=== PATIENT | female | born 1970 | race Two or more races ===

== ENCOUNTER 2017-12-21 09:36 | Emergency (ER) | payer MEDICAID, SELFPAY ==
[~2017-12-21] VITALS: Ht 152.4 cm; Wt 64.4 kg
[2017-12-21] MEDS ORDERED: ONDANSETRON 2MG/ML, 2ML IVPush ONE (10:00)
[2017-12-21] MEDS ORDERED: FAMOTIDINE 20 MG/2 ML IVP ONE (10:00)
[2017-12-21] MEDS ORDERED: SODIUM CHLORIDE FLUSH 10ML SYR IVF ONE (10:00)
[2017-12-21] MEDS ORDERED: SODIUM CHLORIDE 0.9% 1,000ML IVBOLUS ONE (10:00)
[2017-12-21] MEDS ORDERED: INSU100I13 SQ-INSULIN (10:06)
[2017-12-21] MEDS ORDERED: GLIP2.5T3 PO (10:06)
[2017-12-21] MEDS ORDERED: FLUT9.9S NAS (10:07)
[2017-12-21] MEDS ORDERED: ONDANSETRON 2MG/ML, 2ML ONE (10:23)
[2017-12-21] MEDS ORDERED: FAMOTIDINE 20 MG/2 ML ONE (10:23)
[2017-12-21 10:35] LABS: PH, VENOUS 7.399 pH (7.320-7.420)
[2017-12-21 10:37] LABS: O2 FLOW ROOM AIR L/min
[2017-12-21 10:39] LABS: BASOPHILS # (AUTO) 0.02 x10^3/uL (0-0.1); BASOPHILS % (AUTO) 0 % (0-1); EOSINOPHILS # (AUTO) 0.17 x10^3/uL (0-0.4); EOSINOPHILS % (AUTO) 3 % (1-7); LYMPHOCYTES # (AUTO) 1.35 x10^3/uL (1-3.4); LYMPHOCYTES % (AUTO) 20 % (22-44); MD NO; MEAN CORPUSCULAR HEMOGLOBIN 24.7 pg (27.0-34.8); MEAN CORPUSCULAR HGB CONC 33.4 g/dL (32.4-35.8); MEAN CORPUSCULAR VOLUME 73.9 fL (80-100); MEAN PLATELET VOLUME 8.6 fL (7.4-10.4); MONOCYTES # (AUTO) 0.35 x10^3/uL (0.2-0.8); MONOCYTES % (AUTO) 5 % (2-9); NEUTROPHILS # (AUTO) 4.91 x10^3/uL (1.8-6.8); NEUTROPHILS % (AUTO) 72 % (42-75); PLATELET COUNT 278 x10^3/uL (130-400); RED BLOOD COUNT 4.28 x10^6/uL (3.82-5.3); RED CELL DISTRIBUTION WIDTH 15.7 % (9.6-15.2)
[2017-12-21 10:48] LABS: ALANINE AMINOTRANSFERASE 23 U/L (12-78); ALBUMIN 3.3 g/dL (3.4-5.0); ANION GAP 9 mmol/L (5-15); CALCIUM 8.5 mg/dL (8.5-10.1); CHLORIDE 103 mmol/L (98-107); CREATININE 0.63 mg/dL (0.55-1.02)
[2017-12-21 10:51] LABS: MICROSCOPIC AUTO
[2017-12-21 10:52] LABS: CULTURE INDICATED? YES
[2017-12-21 10:53] LABS: ALKALINE PHOSPHATASE 84 U/L (45-117); BILIRUBIN,TOTAL 0.3 mg/dL (0.2-1.0); TOTAL PROTEIN 7.4 g/dL (6.4-8.2)
[2017-12-21 11:12] LABS: ACETONE, SERUM Trace (10mg/dL) mg/dL (Negative)
[2017-12-21 11:26] VITALS: BP 156/78
== END 2017-12-21 12:59 | disposition home or self-care (01) ==
LOC: ED 10:04
DX: E11.65 Type 2 diabetes mellitus with hyperglycemia (principal); K29.00 Acute gastritis without bleeding
CPT/HCPCS: 36415; 80053; 81001; 82010; 82803; 83690; 84703; 85025; 87086; 96361; 96374; 96375; 99284; J2405; J7030; S0028

== ENCOUNTER 2020-08-21 16:09 | Inpatient (IN) | payer OTHER ==
[~2020-08-21] VITALS: Ht 170.2 cm; Wt 62.1 kg
[~2020-08-21 16:09] MED LIST: FLUT9.9S NAS; GLIP2.5T3 PO; INSU100I13 SQ-INSULIN
--- NOTE | 2020-08-21 16:20 | NUR ---
PT ARRIVED VIA CARE FLIGHT FROM [facility] FOR RETROPERITONEAL ABSCESS. PT MEDICATED IN PREVIOUS HOSPITAL AND ENROUTE, INCLUDING 0.5MG DILAUDID & 10MG REGLAN & 3L OF NS. PT [facility] SPEAKING, AXOX4 & COOPERATIVE. ARRIVED FEBRILE WITH NOTED PSORIASIS TO EXTREMITIES AND CHEST & REQUIRING SUPPL O2 VIA DE. PT TRANSFERRED TO [facility], MONITORS IN PLACE. AT . COMFORT AND COOLING MEASURES PROVIDED
[2020-08-21] MEDS ORDERED: MORPHINE SULFATE 4 MG/ML, 1ML IVPush PRN (16:30)
[2020-08-21] MEDS ORDERED: SODIUM CHLORIDE 0.9% 1,000 ML IV ONE (16:30)
[2020-08-21] MEDS ORDERED: SODIUM CHLORIDE FLUSH 10ML SYR IVF ONE (16:30)
[2020-08-21 16:54] LABS: MEAN CORPUSCULAR HEMOGLOBIN 28.1 pg (27.0-34.8); MEAN CORPUSCULAR HGB CONC 32.6 g/dL (32.4-35.8); MEAN PLATELET VOLUME 7.1 fL (7.4-10.4); PLATELET COUNT 415 x10^3/uL (130-400); RED BLOOD COUNT 3.53 x10^6/uL (3.82-5.3); RED CELL DISTRIBUTION WIDTH 14.4 % (9.6-15.2)
[2020-08-21] MEDS ORDERED: LIDOCAINE 1%, 10ML ONE (16:57)
[2020-08-21 17:07] LABS: ALANINE AMINOTRANSFERASE 8 U/L (12-78); ALBUMIN 1.1 g/dL (3.4-5.0); ANION GAP 8 mmol/L (5-15); CALCIUM 7.1 mg/dL (8.5-10.1); CHLORIDE 100 mmol/L (98-107); CREATININE 0.63 mg/dL (0.55-1.02)
[2020-08-21 17:09] LABS: ALKALINE PHOSPHATASE 263 U/L (45-117); BILIRUBIN,TOTAL 0.1 mg/dL (0.2-1.0); TOTAL PROTEIN 5.9 g/dL (6.4-8.2)
--- NOTE | 2020-08-21 17:10 | NUR ---
PT TO IR
[2020-08-21] MEDS ORDERED: FENTANYL PF 100 MCG/2ML ONE ×2 (17:24→17:25)
[2020-08-21] MEDS ORDERED: MIDAZOLAM 1 MG/ML, 5ML ONE (17:24)
[2020-08-21] MEDS ORDERED: NALOXONE 1 MG/ML, 2ML ONE (17:25)
[2020-08-21] MEDS ORDERED: FLUMAZENIL 0.1 MG/1 ML, 5ML ONE (17:25)
[2020-08-21 17:39] LABS: MD YES
[2020-08-21 17:41] LABS: BAND#(MANUAL) 1.21 x10^3/uL; BANDS%(MANUAL) 7 % (0-7); EOS#(MANUAL) 0.17 x10^3/uL (0.0-0.4); EOS% (MANUAL) 1 % (1-7); LYMPH#(MANUAL) 1.04 x10^3/uL (1-3.4); LYMPHS% (MANUAL) 6 % (22-44); METAMYELOCYTES# (MANUAL) 0.17 x10^3/uL (0-0); METAMYELOCYTES% (MANUAL) 1 % (0-1); MONOS#(MANUAL) 0.35 x10^3/uL (0.3-2.7); MONOS% (MANUAL) 2 % (2-9); SEG#(MANUAL) 14.36 x10^3/uL (1.8-6.8); SEGS% (MANUAL) 83 % (42-75)
[2020-08-21 17:46] LABS: <PLATELET ESTIMATE> INCREASED; <PLT MORPHOLOGY> NORMAL PLT MORPH; <RBC MORPHOLOGY> NORMAL
--- NOTE | 2020-08-21 17:59 | NUR ---
PT BACK FROM IR. PT HAS LEFT NEPHROSTOMY ACCORDIAN DRAIN WITH MODERATES AMT BLOODY, PURULENT DRAINAGE NOTED. DRESSING TO SITE CDI. PT DROWSY BUT FOLLOWS COMMANDS. NADN/VSS. SON AT BS. CALL LIGHT WITHIN REACH.
[2020-08-21] MEDS ORDERED: VANCOMYCIN PER PHARMACY MC PRN (18:00)
[2020-08-21] MEDS ORDERED: POLYETHYLENE GLYCOL 17 GM PACKET PO PRN (18:00)
[2020-08-21] MEDS ORDERED: HYDROmorphone 2 MG/ML, 1ML IVPush PRN (18:00)
[2020-08-21] MEDS ORDERED: ACETAMINOPHEN 500 MG TABLET ONE (18:11)
--- NOTE | 2020-08-21 18:29 | NUR ---
Pt to be admitted to MEDICAL, room 359. Report called to DIRECT CHILL CASTING OPERATOR.
[2020-08-21] MEDS ORDERED: ACETAMINOPHEN 500 MG TABLET PO ONE (18:30)
[2020-08-21 19:20] VITALS: BP 86/53
[2020-08-21] MEDS ORDERED: ENOXAPARIN 40 MG/0.4 ML SQ SCH (19:30)
[2020-08-21] MEDS ORDERED: PHARMACOKINETIC MONITORING MC PRN (19:30)
[2020-08-21] MEDS ORDERED: VANCOMYCIN 1,500 MG in SODIUM CHLORIDE 0.9% 250 ML IV ONE (20:00)
[2020-08-21 20:19] VITALS: BP 97/60
[2020-08-21] MEDS: PIPERACILLIN/TAZO/PMX 4.5GM 100 ML IV SCH (20:21)
[2020-08-21] MEDS: POTASSIUM CHLORIDE 20 MEQ in LACTATED RINGERS 1,000 ML IV SCH (21:43)
[2020-08-22] MEDS ORDERED: DEXTROSE 50%, 50ML SYRINGE IVPush PRN (00:30)
[2020-08-22] MEDS ORDERED: DEXTROSE 4 GM TAB.CHEW PO PRN (00:30)
[2020-08-22] MEDS ORDERED: GLUCAGON 1 MG IM PRN (00:30)
[2020-08-22] MEDS: INSULIN LISPRO 100 UNITS/ML, PEN SQ-INSULIN SCH ×5 (00:40→21:00)
[2020-08-22 01:10] VITALS: BP 104/69
[2020-08-22] MEDS: PIPERACILLIN/TAZO/PMX 4.5GM 100 ML IV SCH ×2 (02:16→07:57)
[2020-08-22 05:23] LABS: BASOPHILS % (AUTO) 0 % (0-1); EOSINOPHILS % (AUTO) 1 % (1-7); LYMPHOCYTES % (AUTO) 8 % (22-44); MEAN CORPUSCULAR HEMOGLOBIN 28.4 pg (27.0-34.8); MEAN CORPUSCULAR HGB CONC 32.3 g/dL (32.4-35.8); MEAN PLATELET VOLUME 7.5 fL (7.4-10.4); MONOCYTES % (AUTO) 6 % (2-9); NEUTROPHILS % (AUTO) 85 % (42-75); PLATELET COUNT 430 x10^3/uL (130-400); RED BLOOD COUNT 3.49 x10^6/uL (3.82-5.3); RED CELL DISTRIBUTION WIDTH 14.7 % (9.6-15.2)
[2020-08-22 05:40] LABS: MD NO
[2020-08-22 05:51] LABS: ANION GAP 7 mmol/L (5-15); CALCIUM 7.4 mg/dL (8.5-10.1); CHLORIDE 104 mmol/L (98-107)
[2020-08-22 05:53] LABS: CREATININE 0.86 mg/dL (0.55-1.02)
[2020-08-22 07:02] VITALS: BP 119/81
[2020-08-22] MEDS: POTASSIUM CHLORIDE 20 MEQ in LACTATED RINGERS 1,000 ML IV SCH (07:06)
[2020-08-22] MEDS: SENNA/DOCUSATE TABLET PO SCH (07:57)
[2020-08-22] MEDS: SODIUM CHLORIDE FLUSH 10ML SYR IVF SCH ×2 (07:57→21:08)
[2020-08-22] MEDS: ONDANSETRON ODT 4 MG PO PRN ×2 (07:58→15:41)
[2020-08-22] MEDS: KETOROLAC 30 MG/1 ML IV PRN ×2 (07:58→15:41)
[2020-08-22] MEDS ORDERED: POTASSIUM CHLORIDE 40 MEQ in LACTATED RINGERS 1,000 ML IV SCH (08:30)
[2020-08-22] MEDS: VANCOMYCIN 1,200 MG in SODIUM CHLORIDE 0.9% 250 ML IV SCH ×2 (08:44→20:22)
[2020-08-22] MEDS ORDERED: LOPERAMIDE 2 MG CAPSULE PO PRN (11:30)
[2020-08-22 12:11] VITALS: BP 81/53
[2020-08-22] MEDS ORDERED: LACTATED RINGERS 1,000 ML IVBOLUS ONE (13:00)
[2020-08-22 13:43] LABS: BASOPHILS % (AUTO) 0 % (0-1); EOSINOPHILS % (AUTO) 1 % (1-7); LYMPHOCYTES % (AUTO) 11 % (22-44); MEAN CORPUSCULAR HEMOGLOBIN 28.6 pg (27.0-34.8); MEAN CORPUSCULAR HGB CONC 32.7 g/dL (32.4-35.8); MEAN PLATELET VOLUME 7.7 fL (7.4-10.4); MONOCYTES % (AUTO) 4 % (2-9); NEUTROPHILS % (AUTO) 84 % (42-75); PLATELET COUNT 390 x10^3/uL (130-400); RED CELL DISTRIBUTION WIDTH 14.2 % (9.6-15.2)
[2020-08-22 13:47] LABS: ANION GAP 7 mmol/L (5-15); CHLORIDE 104 mmol/L (98-107); CREATININE 1.12 mg/dL (0.55-1.02)
[2020-08-22] MEDS: MEROPENEM 500 MG in SODIUM CHLORIDE 0.9% 100 ML IV SCH ×2 (13:50→21:11)
[2020-08-22] MEDS: METRONIDAZOLE PMX 500MG/100ML 100 ML IV SCH ×2 (14:08→23:08)
[2020-08-22 14:27] LABS: MD SCAN
[2020-08-22 15:40] VITALS: BP 88/63
[2020-08-22] MEDS: ALBUMIN HUMAN 25% 100 ML IV SCH ×5 (15:41→22:11)
[2020-08-22] MEDS ORDERED: NOREPINEPHRINE 8 MG in SODIUM CHLORIDE 0.9% 242 ML IV PRN (16:30)
[2020-08-22] MEDS: HEPARIN 5,000 UNITS/ML, 1ML SQ SCH (17:12)
[2020-08-22] MEDS: ACETAMINOPHEN 325 MG TABLET PO PRN (20:22)
[2020-08-22] MEDS: INSULIN GLARGINE 100 UNITS/ML, PEN SQ-INSULIN SCH (21:05)
[2020-08-23] MEDS: HEPARIN 5,000 UNITS/ML, 1ML SQ SCH ×3 (01:03→16:21)
[2020-08-23] MEDS: KETOROLAC 30 MG/1 ML IV PRN (01:27)
[2020-08-23] MEDS: ONDANSETRON ODT 4 MG PO PRN ×2 (01:44→09:32)
[2020-08-23 04:51] LABS: BASOPHILS % (AUTO) 1 % (0-1); EOSINOPHILS % (AUTO) 2 % (1-7); LYMPHOCYTES % (AUTO) 11 % (22-44); MEAN CORPUSCULAR HEMOGLOBIN 28.2 pg (27.0-34.8); MEAN CORPUSCULAR HGB CONC 32.8 g/dL (32.4-35.8); MEAN PLATELET VOLUME 7.1 fL (7.4-10.4); MONOCYTES % (AUTO) 6 % (2-9); NEUTROPHILS % (AUTO) 80 % (42-75); PLATELET COUNT 387 x10^3/uL (130-400); RED BLOOD COUNT 3.38 x10^6/uL (3.82-5.3); RED CELL DISTRIBUTION WIDTH 14.3 % (9.6-15.2)
[2020-08-23 04:52] LABS: MD NO
[2020-08-23 05:03] LABS: ALBUMIN 1.9 g/dL (3.4-5.0); ANION GAP 5 mmol/L (5-15); CALCIUM 7.6 mg/dL (8.5-10.1); CHLORIDE 105 mmol/L (98-107)
[2020-08-23] MEDS: METRONIDAZOLE PMX 500MG/100ML 100 ML IV SCH (05:04)
[2020-08-23 05:07] LABS: ALANINE AMINOTRANSFERASE 19 U/L (12-78); ALKALINE PHOSPHATASE 695 U/L (45-117); BILIRUBIN,TOTAL 0.2 mg/dL (0.2-1.0); CREATININE 1.43 mg/dL (0.55-1.02); TOTAL PROTEIN 6.1 g/dL (6.4-8.2)
[2020-08-23] MEDS: MEROPENEM 500 MG in SODIUM CHLORIDE 0.9% 100 ML IV SCH (06:33)
[2020-08-23] MEDS: INSULIN LISPRO 100 UNITS/ML, PEN SQ-INSULIN SCH ×4 (07:00→21:16)
[2020-08-23] MEDS ORDERED: POTASSIUM CHLORIDE 20 MEQ TAB.ER.PRT PO ONE (07:00)
[2020-08-23] MEDS: SENNA/DOCUSATE TABLET PO SCH (07:49)
[2020-08-23] MEDS: SODIUM CHLORIDE FLUSH 10ML SYR IVF SCH ×2 (07:49→21:18)
[2020-08-23] MEDS: SODIUM CHLORIDE 0.9% 1,000 ML IV SCH ×2 (09:31→22:37)
[2020-08-23 12:51] VITALS: BP 125/92
[2020-08-23] MEDS: CEFTRIAXONE PMX 2GM/50ML 50 ML IVPB SCH (13:10)
[2020-08-23 18:55] VITALS: BP 139/90
[2020-08-23] MEDS: INSULIN GLARGINE 100 UNITS/ML, PEN SQ-INSULIN SCH (21:16)
[2020-08-24 00:57] VITALS: BP 114/80
[2020-08-24] MEDS: HEPARIN 5,000 UNITS/ML, 1ML SQ SCH ×3 (01:21→16:43)
[2020-08-24 05:10] LABS: BASOPHILS % (AUTO) 0 % (0-1); EOSINOPHILS % (AUTO) 2 % (1-7); LYMPHOCYTES % (AUTO) 7 % (22-44); MEAN CORPUSCULAR HEMOGLOBIN 28.2 pg (27.0-34.8); MEAN CORPUSCULAR HGB CONC 32.2 g/dL (32.4-35.8); MEAN PLATELET VOLUME 7.6 fL (7.4-10.4); MONOCYTES % (AUTO) 5 % (2-9); NEUTROPHILS % (AUTO) 86 % (42-75); PLATELET COUNT 428 x10^3/uL (130-400); RED BLOOD COUNT 3.61 x10^6/uL (3.82-5.3); RED CELL DISTRIBUTION WIDTH 14.6 % (9.6-15.2)
[2020-08-24 05:13] LABS: CHLORIDE 108 mmol/L (98-107)
[2020-08-24 05:18] LABS: ANION GAP 9 mmol/L (5-15); CALCIUM 7.3 mg/dL (8.5-10.1); CREATININE 1.31 mg/dL (0.55-1.02)
[2020-08-24 05:24] LABS: MD NO
[2020-08-24] MEDS: INSULIN LISPRO 100 UNITS/ML, PEN SQ-INSULIN SCH ×4 (07:27→20:30)
[2020-08-24 07:36] VITALS: BP 126/84
[2020-08-24] MEDS: ONDANSETRON ODT 4 MG PO PRN (08:14)
[2020-08-24] MEDS: SODIUM CHLORIDE FLUSH 10ML SYR IVF SCH ×2 (08:15→20:31)
[2020-08-24] MEDS: SENNA/DOCUSATE TABLET PO SCH (08:15)
[2020-08-24] MEDS: SODIUM CHLORIDE 0.9% 1,000 ML IV SCH ×2 (11:02→21:37)
[2020-08-24 12:38] VITALS: BP 102/63
[2020-08-24] MEDS: CEFTRIAXONE PMX 2GM/50ML 50 ML IVPB SCH (13:01)
[2020-08-24] MEDS: LACTOBACILLUS CHEW TABLET PO SCH ×2 (16:42→20:29)
[2020-08-24 19:53] VITALS: BP 139/75
[2020-08-24] MEDS: INSULIN GLARGINE 100 UNITS/ML, PEN SQ-INSULIN SCH (20:30)
[2020-08-25 00:48] VITALS: BP 107/67
[2020-08-25] MEDS: HEPARIN 5,000 UNITS/ML, 1ML SQ SCH ×3 (01:02→16:39)
[2020-08-25] MEDS: ONDANSETRON ODT 4 MG PO PRN (01:02)
[2020-08-25] MEDS: LACTOBACILLUS CHEW TABLET PO SCH ×4 (05:27→20:09)
[2020-08-25 06:04] LABS: BASOPHILS % (AUTO) 0 % (0-1); EOSINOPHILS % (AUTO) 2 % (1-7); LYMPHOCYTES % (AUTO) 13 % (22-44); MEAN CORPUSCULAR HEMOGLOBIN 28.2 pg (27.0-34.8); MEAN CORPUSCULAR HGB CONC 32.4 g/dL (32.4-35.8); MEAN PLATELET VOLUME 7.4 fL (7.4-10.4); MONOCYTES % (AUTO) 7 % (2-9); NEUTROPHILS % (AUTO) 78 % (42-75); PLATELET COUNT 433 x10^3/uL (130-400); RED BLOOD COUNT 3.31 x10^6/uL (3.82-5.3); RED CELL DISTRIBUTION WIDTH 14.6 % (9.6-15.2)
[2020-08-25 06:10] LABS: CHLORIDE 109 mmol/L (98-107)
[2020-08-25 06:16] LABS: MD NO
[2020-08-25 06:18] LABS: ALANINE AMINOTRANSFERASE 9 U/L (12-78); ALBUMIN 1.4 g/dL (3.4-5.0); ALKALINE PHOSPHATASE 463 U/L (45-117); ANION GAP 6 mmol/L (5-15); CALCIUM 6.9 mg/dL (8.5-10.1); CREATININE 1.33 mg/dL (0.55-1.02); TOTAL PROTEIN 5.6 g/dL (6.4-8.2)
[2020-08-25 06:36] LABS: BILIRUBIN,TOTAL < 0.1 mg/dL (0.2-1.0)
[2020-08-25 07:10] VITALS: BP 113/74
[2020-08-25] MEDS: SODIUM CHLORIDE 0.9% 1,000 ML IV SCH ×2 (07:25→16:42)
[2020-08-25] MEDS: INSULIN LISPRO 100 UNITS/ML, PEN SQ-INSULIN SCH ×4 (07:35→20:10)
[2020-08-25] MEDS: SENNA/DOCUSATE TABLET PO SCH (08:54)
[2020-08-25] MEDS: SODIUM CHLORIDE FLUSH 10ML SYR IVF SCH ×2 (08:55→20:09)
[2020-08-25] MEDS: CEFTRIAXONE PMX 2GM/50ML 50 ML IVPB SCH (12:45)
[2020-08-25 14:12] VITALS: BP 118/62
[2020-08-25 19:12] VITALS: BP 100/66
[2020-08-25] MEDS ORDERED: INSULIN GLARGINE 100 UNITS/ML, PEN SQ-INSULIN SCH (21:00)
[2020-08-26 00:22] VITALS: BP 109/74
[2020-08-26] MEDS: HEPARIN 5,000 UNITS/ML, 1ML SQ SCH ×3 (01:20→16:40)
[2020-08-26] MEDS: SODIUM CHLORIDE 0.9% 1,000 ML IV SCH (02:50)
[2020-08-26 04:41] VITALS: BP 112/75
[2020-08-26] MEDS: LACTOBACILLUS CHEW TABLET PO SCH ×2 (05:35→11:31)
[2020-08-26] MEDS: INSULIN LISPRO 100 UNITS/ML, PEN SQ-INSULIN SCH ×4 (07:00→19:44)
[2020-08-26 08:12] VITALS: BP 147/98
[2020-08-26] MEDS: SENNA/DOCUSATE TABLET PO SCH (09:00)
[2020-08-26] MEDS ORDERED: INSULIN GLARGINE 100 UNITS/ML, PEN SQ-INSULIN SCH (09:00)
[2020-08-26] MEDS: SODIUM CHLORIDE FLUSH 10ML SYR IVF SCH ×2 (09:27→19:44)
[2020-08-26] MEDS: CEFTRIAXONE PMX 2GM/50ML 50 ML IVPB SCH (13:03)
[2020-08-26 13:36] VITALS: BP 139/84
[2020-08-26] MEDS: DIPHENOXYLATE/ATROPINE TABLET PO PRN ×2 (13:39→19:43)
[2020-08-26] MEDS ORDERED: OMNIPAQUE 350 MG/ML, 100ML BOTTLE ONE (15:09)
[2020-08-26 19:13] VITALS: BP 116/75
[2020-08-26] MEDS: INSULIN GLARGINE 100 UNITS/ML, PEN SQ-INSULIN SCH (19:44)
[2020-08-27 00:48] VITALS: BP 103/71
[2020-08-27] MEDS: HEPARIN 5,000 UNITS/ML, 1ML SQ SCH ×3 (00:56→17:19)
[2020-08-27 05:22] LABS: BASOPHILS % (AUTO) 0 % (0-1); EOSINOPHILS % (AUTO) 3 % (1-7); LYMPHOCYTES % (AUTO) 11 % (22-44); MEAN CORPUSCULAR HEMOGLOBIN 28.2 pg (27.0-34.8); MEAN CORPUSCULAR HGB CONC 32.2 g/dL (32.4-35.8); MEAN PLATELET VOLUME 7.2 fL (7.4-10.4); MONOCYTES % (AUTO) 7 % (2-9); NEUTROPHILS % (AUTO) 78 % (42-75); PLATELET COUNT 463 x10^3/uL (130-400); RED BLOOD COUNT 3.46 x10^6/uL (3.82-5.3); RED CELL DISTRIBUTION WIDTH 14.8 % (9.6-15.2)
[2020-08-27 05:29] LABS: MD NO
[2020-08-27 05:33] LABS: CHLORIDE 112 mmol/L (98-107)
[2020-08-27 05:42] LABS: ALBUMIN 1.2 g/dL (3.4-5.0); ALKALINE PHOSPHATASE 308 U/L (45-117); ANION GAP 5 mmol/L (5-15); BILIRUBIN,TOTAL 0.1 mg/dL (0.2-1.0); CALCIUM 7.2 mg/dL (8.5-10.1); CREATININE 1.13 mg/dL (0.55-1.02); TOTAL PROTEIN 5.3 g/dL (6.4-8.2)
[2020-08-27 05:53] LABS: ALANINE AMINOTRANSFERASE 8 U/L (12-78)
[2020-08-27 06:47] VITALS: BP 105/65
[2020-08-27] MEDS: INSULIN LISPRO 100 UNITS/ML, PEN SQ-INSULIN SCH ×4 (07:00→19:40)
[2020-08-27] MEDS: SODIUM CHLORIDE FLUSH 10ML SYR IVF SCH ×2 (08:27→19:41)
[2020-08-27] MEDS ORDERED: METRONIDAZOLE PMX 500MG/100ML 100 ML IV SCH (09:00)
[2020-08-27 12:16] VITALS: BP 126/81
[2020-08-27] MEDS: AMPICILLIN/SULBACTAM 3 GM in SODIUM CHLORIDE 0.9% 100 ML IV SCH ×2 (13:10→20:57)
[2020-08-27] MEDS: DIPHENOXYLATE/ATROPINE TABLET PO PRN (13:31)
[2020-08-27] MEDS ORDERED: GASTROGRAFIN 120 ML SOLN PO ONE (16:59)
[2020-08-27 19:26] VITALS: BP 121/81
[2020-08-27] MEDS: INSULIN GLARGINE 100 UNITS/ML, PEN SQ-INSULIN SCH (19:39)
[2020-08-28 00:45] VITALS: BP 106/71
[2020-08-28] MEDS: HEPARIN 5,000 UNITS/ML, 1ML SQ SCH ×3 (01:03→16:17)
[2020-08-28] MEDS: AMPICILLIN/SULBACTAM 3 GM in SODIUM CHLORIDE 0.9% 100 ML IV SCH ×3 (04:22→20:22)
[2020-08-28] MEDS ORDERED: DEXTROSE 50%, 50ML SYRINGE IVPush ONE (06:30)
[2020-08-28] MEDS: INSULIN LISPRO 100 UNITS/ML, PEN SQ-INSULIN SCH ×4 (06:32→20:23)
[2020-08-28 09:11] VITALS: BP 133/76
[2020-08-28] MEDS: DIPHENOXYLATE/ATROPINE TABLET PO PRN (09:17)
[2020-08-28] MEDS: SODIUM CHLORIDE FLUSH 10ML SYR IVF SCH ×2 (09:17→20:23)
[2020-08-28] MEDS ORDERED: FENTANYL PF 100 MCG/2ML ONE (10:52)
[2020-08-28] MEDS ORDERED: LIDOCAINE 1%, 10ML ONE (10:52)
[2020-08-28] MEDS ORDERED: MIDAZOLAM 1 MG/ML, 5ML ONE (10:52)
[2020-08-28] MEDS ORDERED: NALOXONE 1 MG/ML, 2ML ONE (10:53)
[2020-08-28] MEDS ORDERED: FLUMAZENIL 0.1 MG/1 ML, 5ML ONE (10:53)
[2020-08-28 13:06] VITALS: BP 144/87
[2020-08-28 18:13] VITALS: BP 100/68
[2020-08-28] MEDS: INSULIN GLARGINE 100 UNITS/ML, PEN SQ-INSULIN SCH (20:23)
[2020-08-29 01:01] VITALS: BP 118/80
[2020-08-29] MEDS: HEPARIN 5,000 UNITS/ML, 1ML SQ SCH ×3 (01:10→16:17)
[2020-08-29] MEDS: ONDANSETRON ODT 4 MG PO PRN (03:20)
[2020-08-29] MEDS: AMPICILLIN/SULBACTAM 3 GM in SODIUM CHLORIDE 0.9% 100 ML IV SCH ×3 (04:03→20:51)
[2020-08-29 04:04] LABS: BASOPHILS % (AUTO) 1 % (0-1); EOSINOPHILS % (AUTO) 2 % (1-7); LYMPHOCYTES % (AUTO) 12 % (22-44); MEAN CORPUSCULAR HEMOGLOBIN 28.2 pg (27.0-34.8); MEAN CORPUSCULAR HGB CONC 32.7 g/dL (32.4-35.8); MEAN PLATELET VOLUME 6.9 fL (7.4-10.4); MONOCYTES % (AUTO) 8 % (2-9); NEUTROPHILS % (AUTO) 77 % (42-75); PLATELET COUNT 588 x10^3/uL (130-400); RED BLOOD COUNT 3.75 x10^6/uL (3.82-5.3); RED CELL DISTRIBUTION WIDTH 14.7 % (9.6-15.2)
[2020-08-29 04:08] LABS: ALANINE AMINOTRANSFERASE 7 U/L (12-78); ALBUMIN 1.4 g/dL (3.4-5.0); ANION GAP 3 mmol/L (5-15); CHLORIDE 116 mmol/L (98-107); CREATININE 1.18 mg/dL (0.55-1.02); MD NO
[2020-08-29 04:10] LABS: ALKALINE PHOSPHATASE 294 U/L (45-117); BILIRUBIN,TOTAL 0.1 mg/dL (0.2-1.0); TOTAL PROTEIN 6.1 g/dL (6.4-8.2)
[2020-08-29] MEDS: DIPHENOXYLATE/ATROPINE TABLET PO PRN (05:30)
[2020-08-29 07:09] VITALS: BP 115/78
[2020-08-29] MEDS: SODIUM CHLORIDE FLUSH 10ML SYR IVF SCH ×2 (08:44→20:57)
[2020-08-29] MEDS: INSULIN LISPRO 100 UNITS/ML, PEN SQ-INSULIN SCH ×4 (08:44→20:59)
[2020-08-29 12:35] VITALS: BP 144/60
[2020-08-29 18:30] VITALS: BP 136/85
[2020-08-29] MEDS: INSULIN GLARGINE 100 UNITS/ML, PEN SQ-INSULIN SCH (21:00)
[2020-08-30 00:23] VITALS: BP 134/82
[2020-08-30] MEDS: HEPARIN 5,000 UNITS/ML, 1ML SQ SCH ×3 (01:47→16:48)
[2020-08-30] MEDS: AMPICILLIN/SULBACTAM 3 GM in SODIUM CHLORIDE 0.9% 100 ML IV SCH ×2 (04:36→11:59)
[2020-08-30 05:08] LABS: BASOPHILS % (AUTO) 1 % (0-1); EOSINOPHILS % (AUTO) 2 % (1-7); LYMPHOCYTES % (AUTO) 10 % (22-44); MEAN CORPUSCULAR HEMOGLOBIN 28.6 pg (27.0-34.8); MEAN CORPUSCULAR HGB CONC 33.1 g/dL (32.4-35.8); MONOCYTES % (AUTO) 7 % (2-9); NEUTROPHILS % (AUTO) 80 % (42-75); PLATELET COUNT 499 x10^3/uL (130-400); RED BLOOD COUNT 3.41 x10^6/uL (3.82-5.3); RED CELL DISTRIBUTION WIDTH 15.1 % (9.6-15.2)
[2020-08-30 05:19] LABS: ALANINE AMINOTRANSFERASE 6 U/L (12-78); ALBUMIN 1.4 g/dL (3.4-5.0); ANION GAP 3 mmol/L (5-15); CALCIUM 7.9 mg/dL (8.5-10.1); CHLORIDE 113 mmol/L (98-107)
[2020-08-30 05:25] LABS: ALKALINE PHOSPHATASE 257 U/L (45-117); BILIRUBIN,TOTAL 0.2 mg/dL (0.2-1.0); TOTAL PROTEIN 6.1 g/dL (6.4-8.2)
[2020-08-30 05:42] LABS: MD NO
[2020-08-30 06:04] LABS: HCT (SEDRATE) 29.4 % (34.6-47.8)
[2020-08-30 06:36] VITALS: BP 129/83
[2020-08-30] MEDS: INSULIN LISPRO 100 UNITS/ML, PEN SQ-INSULIN SCH ×4 (07:00→21:28)
[2020-08-30] MEDS: DIPHENOXYLATE/ATROPINE TABLET PO PRN (09:00)
[2020-08-30] MEDS: ACETAMINOPHEN 325 MG TABLET PO PRN (09:00)
[2020-08-30] MEDS: SODIUM CHLORIDE FLUSH 10ML SYR IVF SCH ×2 (09:02→21:00)
[2020-08-30] MEDS: PIPERACILLIN/TAZO/PMX 3.375GM 50 ML IV SCH ×2 (12:43→18:37)
[2020-08-30 14:05] VITALS: BP 111/69
[2020-08-30 18:40] VITALS: BP 129/82
[2020-08-30] MEDS: INSULIN GLARGINE 100 UNITS/ML, PEN SQ-INSULIN SCH (21:28)
[2020-08-31 00:06] VITALS: BP 126/80
[2020-08-31] MEDS: HEPARIN 5,000 UNITS/ML, 1ML SQ SCH ×3 (00:33→17:43)
[2020-08-31] MEDS: PIPERACILLIN/TAZO/PMX 3.375GM 50 ML IV SCH ×5 (00:34→21:33)
[2020-08-31 05:15] LABS: BASOPHILS % (AUTO) 0 % (0-1); EOSINOPHILS % (AUTO) 2 % (1-7); LYMPHOCYTES % (AUTO) 13 % (22-44); MEAN CORPUSCULAR HEMOGLOBIN 28.7 pg (27.0-34.8); MEAN CORPUSCULAR HGB CONC 33.3 g/dL (32.4-35.8); MEAN PLATELET VOLUME 6.7 fL (7.4-10.4); MONOCYTES % (AUTO) 7 % (2-9); NEUTROPHILS % (AUTO) 77 % (42-75); PLATELET COUNT 484 x10^3/uL (130-400); RED BLOOD COUNT 3.19 x10^6/uL (3.82-5.3); RED CELL DISTRIBUTION WIDTH 14.9 % (9.6-15.2)
[2020-08-31 05:24] LABS: CHLORIDE 112 mmol/L (98-107)
[2020-08-31 05:28] LABS: ANION GAP 1 mmol/L (5-15); CALCIUM 7.8 mg/dL (8.5-10.1); CREATININE 1.18 mg/dL (0.55-1.02)
[2020-08-31 05:29] LABS: MD NO
[2020-08-31] MEDS: INSULIN LISPRO 100 UNITS/ML, PEN SQ-INSULIN SCH ×4 (07:00→22:00)
[2020-08-31] MEDS ORDERED: SODIUM ZIRCONIUM CYCLOSILICATE 10 GM PO ONE (07:00)
[2020-08-31 07:01] VITALS: BP 143/83
[2020-08-31] MEDS: ONDANSETRON ODT 4 MG PO PRN (10:27)
[2020-08-31] MEDS: SODIUM CHLORIDE FLUSH 10ML SYR IVF SCH ×2 (10:39→22:00)
[2020-08-31 11:09] LABS: TROPONIN I < 0.015 ng/mL (0.000-0.045)
[2020-08-31] MEDS: DIPHENOXYLATE/ATROPINE TABLET PO PRN (11:53)
[2020-08-31 12:46] VITALS: BP 138/82
[2020-08-31] MEDS: LACTOBACILLUS CHEW TABLET PO SCH ×2 (16:45→21:59)
[2020-08-31 20:22] VITALS: BP 142/87
[2020-08-31] MEDS: INSULIN GLARGINE 100 UNITS/ML, PEN SQ-INSULIN SCH (22:00)
[2020-09-01 00:11] VITALS: BP 125/83
[2020-09-01] MEDS: HEPARIN 5,000 UNITS/ML, 1ML SQ SCH ×3 (01:06→17:26)
[2020-09-01] MEDS: PIPERACILLIN/TAZO/PMX 3.375GM 50 ML IV SCH ×4 (03:14→21:24)
[2020-09-01 06:03] LABS: ANION GAP 5 mmol/L (5-15); CALCIUM 7.4 mg/dL (8.5-10.1); CHLORIDE 110 mmol/L (98-107)
[2020-09-01 06:04] LABS: CREATININE 1.06 mg/dL (0.55-1.02)
[2020-09-01 06:21] LABS: BASOPHILS % (AUTO) 0 % (0-1); EOSINOPHILS % (AUTO) 3 % (1-7); LYMPHOCYTES % (AUTO) 17 % (22-44); MEAN CORPUSCULAR HEMOGLOBIN 28.3 pg (27.0-34.8); MEAN CORPUSCULAR HGB CONC 32.8 g/dL (32.4-35.8); MEAN PLATELET VOLUME 6.8 fL (7.4-10.4); MONOCYTES % (AUTO) 7 % (2-9); NEUTROPHILS % (AUTO) 73 % (42-75); PLATELET COUNT 464 x10^3/uL (130-400); RED BLOOD COUNT 3.29 x10^6/uL (3.82-5.3); RED CELL DISTRIBUTION WIDTH 14.7 % (9.6-15.2)
[2020-09-01 06:24] LABS: MD NO
[2020-09-01] MEDS: INSULIN LISPRO 100 UNITS/ML, PEN SQ-INSULIN SCH ×4 (07:00→21:26)
[2020-09-01 07:18] VITALS: BP 141/89
[2020-09-01] MEDS: SODIUM ZIRCONIUM CYCLOSILICATE 10 GM PO SCH ×2 (07:57→23:34)
[2020-09-01] MEDS: LACTOBACILLUS CHEW TABLET PO SCH ×3 (10:01→21:25)
[2020-09-01] MEDS: SODIUM CHLORIDE FLUSH 10ML SYR IVF SCH ×2 (10:02→21:00)
[2020-09-01 12:29] VITALS: BP 130/84
[2020-09-01] MEDS ORDERED: OMNIPAQUE 350 MG/ML, 100ML BOTTLE ONE (13:00)
[2020-09-01 19:32] VITALS: BP 123/79
[2020-09-01] MEDS: INSULIN GLARGINE 100 UNITS/ML, PEN SQ-INSULIN SCH (21:26)
[2020-09-02 00:50] VITALS: BP 120/77
[2020-09-02] MEDS: HEPARIN 5,000 UNITS/ML, 1ML SQ SCH ×3 (01:00→16:18)
[2020-09-02] MEDS: PIPERACILLIN/TAZO/PMX 3.375GM 50 ML IV SCH ×4 (03:48→21:34)
[2020-09-02 05:31] LABS: HCT (SEDRATE) 27.5 % (34.6-47.8)
[2020-09-02 05:32] LABS: BASOPHILS % (AUTO) 1 % (0-1); EOSINOPHILS % (AUTO) 3 % (1-7); LYMPHOCYTES % (AUTO) 18 % (22-44); MEAN CORPUSCULAR HGB CONC 33.5 g/dL (32.4-35.8); MEAN PLATELET VOLUME 7.1 fL (7.4-10.4); MONOCYTES % (AUTO) 7 % (2-9); NEUTROPHILS % (AUTO) 72 % (42-75); PLATELET COUNT 455 x10^3/uL (130-400); RED BLOOD COUNT 3.19 x10^6/uL (3.82-5.3); RED CELL DISTRIBUTION WIDTH 14.9 % (9.6-15.2)
[2020-09-02 05:35] LABS: MD NO
[2020-09-02 06:00] LABS: ALBUMIN 1.4 g/dL (3.4-5.0); ALKALINE PHOSPHATASE 213 U/L (45-117); CALCIUM 7.6 mg/dL (8.5-10.1); CREATININE 1.13 mg/dL (0.55-1.02)
[2020-09-02 06:21] LABS: ANION GAP 6 mmol/L (5-15); CHLORIDE 109 mmol/L (98-107)
[2020-09-02 06:22] LABS: BILIRUBIN,TOTAL 0.1 mg/dL (0.2-1.0)
[2020-09-02 06:30] LABS: ALANINE AMINOTRANSFERASE < 6 U/L (12-78)
[2020-09-02] MEDS: INSULIN LISPRO 100 UNITS/ML, PEN SQ-INSULIN SCH ×4 (07:00→20:47)
[2020-09-02 07:16] VITALS: BP 132/85
[2020-09-02] MEDS: LACTOBACILLUS CHEW TABLET PO SCH ×3 (08:34→20:47)
[2020-09-02] MEDS: SODIUM CHLORIDE FLUSH 10ML SYR IVF SCH ×2 (09:00→20:47)
[2020-09-02] MEDS ORDERED: FENTANYL PF 100 MCG/2ML ONE ×2 (10:37→10:38)
[2020-09-02] MEDS ORDERED: FLUMAZENIL 0.1 MG/1 ML, 5ML ONE (10:38)
[2020-09-02] MEDS ORDERED: NALOXONE 1 MG/ML, 2ML ONE (10:38)
[2020-09-02] MEDS ORDERED: MIDAZOLAM 1 MG/ML, 5ML ONE (10:38)
[2020-09-02] MEDS ORDERED: LIDOCAINE 1%, 10ML ONE (10:46)
[2020-09-02] MEDS ORDERED: VISIPAQUE 320MG/ML, 50ML BOTTLE ONE (11:38)
[2020-09-02 14:34] VITALS: BP 124/81
[2020-09-02] MEDS: DIPHENOXYLATE/ATROPINE TABLET PO PRN (18:17)
[2020-09-02 19:01] VITALS: BP 151/88
[2020-09-02] MEDS: INSULIN GLARGINE 100 UNITS/ML, PEN SQ-INSULIN SCH (20:47)
[2020-09-03 00:43] VITALS: BP 126/68
[2020-09-03] MEDS: HEPARIN 5,000 UNITS/ML, 1ML SQ SCH ×3 (01:19→17:25)
[2020-09-03] MEDS: PIPERACILLIN/TAZO/PMX 3.375GM 50 ML IV SCH ×4 (03:40→21:36)
[2020-09-03 05:25] LABS: BASOPHILS % (AUTO) 1 % (0-1); EOSINOPHILS % (AUTO) 2 % (1-7); LYMPHOCYTES % (AUTO) 16 % (22-44); MEAN CORPUSCULAR HEMOGLOBIN 28.7 pg (27.0-34.8); MEAN CORPUSCULAR HGB CONC 33.5 g/dL (32.4-35.8); MEAN PLATELET VOLUME 6.9 fL (7.4-10.4); MONOCYTES % (AUTO) 7 % (2-9); NEUTROPHILS % (AUTO) 74 % (42-75); PLATELET COUNT 393 x10^3/uL (130-400); RED BLOOD COUNT 3.39 x10^6/uL (3.82-5.3); RED CELL DISTRIBUTION WIDTH 14.9 % (9.6-15.2)
[2020-09-03 05:31] LABS: MD NO
[2020-09-03 05:33] LABS: ANION GAP 3 mmol/L (5-15); CALCIUM 7.7 mg/dL (8.5-10.1); CHLORIDE 107 mmol/L (98-107)
[2020-09-03 05:34] LABS: CREATININE 1.15 mg/dL (0.55-1.02)
[2020-09-03] MEDS: INSULIN LISPRO 100 UNITS/ML, PEN SQ-INSULIN SCH ×4 (07:00→20:30)
[2020-09-03] MEDS: SODIUM CHLORIDE FLUSH 10ML SYR IVF SCH ×2 (08:39→20:29)
[2020-09-03] MEDS: LACTOBACILLUS CHEW TABLET PO SCH ×3 (08:40→20:28)
[2020-09-03 08:56] VITALS: BP 118/76
[2020-09-03 12:52] VITALS: BP 137/82
[2020-09-03] MEDS: TRIAMCINOLONE CRM 0.1%, 15GM TP SCH ×2 (15:44→20:29)
[2020-09-03] MEDS ORDERED: GOLYTELY 4,000ML ORAL.SOL PO ONE (18:00)
[2020-09-03 19:57] VITALS: BP 149/87
[2020-09-03] MEDS: INSULIN GLARGINE 100 UNITS/ML, PEN SQ-INSULIN SCH (20:30)
[2020-09-04 00:30] VITALS: BP 129/88
[2020-09-04] MEDS: HEPARIN 5,000 UNITS/ML, 1ML SQ SCH ×3 (01:16→16:29)
[2020-09-04] MEDS: PIPERACILLIN/TAZO/PMX 3.375GM 50 ML IV SCH ×4 (04:00→22:32)
[2020-09-04 05:11] LABS: BASOPHILS % (AUTO) 1 % (0-1); EOSINOPHILS % (AUTO) 3 % (1-7); LYMPHOCYTES % (AUTO) 20 % (22-44); MEAN PLATELET VOLUME 6.9 fL (7.4-10.4); MONOCYTES % (AUTO) 8 % (2-9); NEUTROPHILS % (AUTO) 68 % (42-75); PLATELET COUNT 346 x10^3/uL (130-400); RED BLOOD COUNT 3.17 x10^6/uL (3.82-5.3); RED CELL DISTRIBUTION WIDTH 14.7 % (9.6-15.2)
[2020-09-04 05:18] LABS: CALCIUM 7.6 mg/dL (8.5-10.1); CHLORIDE 108 mmol/L (98-107)
[2020-09-04 05:22] LABS: ANION GAP 4 mmol/L (5-15); CREATININE 0.92 mg/dL (0.55-1.02)
[2020-09-04 05:36] LABS: MD NO
[2020-09-04 06:46] VITALS: BP 144/86
[2020-09-04] MEDS: INSULIN LISPRO 100 UNITS/ML, PEN SQ-INSULIN SCH ×4 (07:00→21:36)
[2020-09-04] MEDS ORDERED: MIDAZOLAM 1 MG/ML, 2ML ONE (08:05)
[2020-09-04] MEDS ORDERED: PROPOFOL 50 ML ONE (08:06)
[2020-09-04] MEDS ORDERED: FENTANYL PF 100 MCG/2ML IV PRN (08:30)
[2020-09-04] MEDS: LACTOBACILLUS CHEW TABLET PO SCH ×3 (09:00→21:35)
[2020-09-04] MEDS: SODIUM CHLORIDE FLUSH 10ML SYR IVF SCH ×2 (09:00→21:00)
[2020-09-04] MEDS: TRIAMCINOLONE CRM 0.1%, 15GM TP SCH ×2 (09:00→21:38)
[2020-09-04 12:40] VITALS: BP 155/91
[2020-09-04] MEDS: DIPHENOXYLATE/ATROPINE TABLET PO PRN (14:59)
[2020-09-04 19:10] VITALS: BP 136/84
[2020-09-04] MEDS: INSULIN GLARGINE 100 UNITS/ML, PEN SQ-INSULIN SCH (21:00)
[2020-09-05 00:15] VITALS: BP 134/87
[2020-09-05] MEDS: HEPARIN 5,000 UNITS/ML, 1ML SQ SCH ×3 (00:49→16:58)
[2020-09-05] MEDS: ONDANSETRON ODT 4 MG PO PRN (03:39)
[2020-09-05] MEDS: PIPERACILLIN/TAZO/PMX 3.375GM 50 ML IV SCH (04:32)
[2020-09-05] MEDS: ACETAMINOPHEN 325 MG TABLET PO PRN (05:16)
[2020-09-05 07:02] VITALS: BP 124/79
[2020-09-05] MEDS ORDERED: DEXTROSE 4 GM TAB.CHEW PO PRN (07:30)
[2020-09-05] MEDS ORDERED: GLUCAGON 1 MG IM PRN (07:30)
[2020-09-05] MEDS ORDERED: DEXTROSE 50%, 50ML SYRINGE IVPush PRN (07:30)
[2020-09-05 07:48] LABS: ANION GAP 6 mmol/L (5-15); CALCIUM 7.4 mg/dL (8.5-10.1); CHLORIDE 107 mmol/L (98-107); CREATININE 1.27 mg/dL (0.55-1.02); INTERNATIONAL NORMALIZED RATIO 1.16 (0.93-1.1); PROTHROMBIN TIME 12.4 Seconds (9.6-11.5)
[2020-09-05] MEDS: INSULIN LISPRO 100 UNITS/ML, PEN SQ-INSULIN SCH ×4 (07:59→22:20)
[2020-09-05] MEDS: LACTOBACILLUS CHEW TABLET PO SCH ×3 (09:58→21:00)
[2020-09-05] MEDS: SODIUM CHLORIDE FLUSH 10ML SYR IVF SCH ×2 (09:59)
[2020-09-05] MEDS: TRIAMCINOLONE CRM 0.1%, 15GM TP SCH ×2 (09:59→22:26)
[2020-09-05] MEDS ORDERED: PIPERACILLIN/TAZO 3.375 GM in DEXTROSE 5% 50 ML IV SCH (12:00)
[2020-09-05] MEDS: PIPERACILLIN/TAZO 3.375 GM in DEXTROSE 5% 50 ML IV SCH ×2 (12:03→21:26)
[2020-09-05 13:23] VITALS: BP 156/101
[2020-09-05] MEDS ORDERED: CHLORHEXIDINE 15 ML UDC PO ONE (15:30)
[2020-09-05] MEDS ORDERED: FENTANYL PF 250 MCG/5ML ONE (16:25)
[2020-09-05] MEDS ORDERED: PROPOFOL 10 MG/ML, 20ML ONE (17:40)
[2020-09-05] MEDS ORDERED: ROCURONIUM 10MG/ML,5ML ONE (17:41)
[2020-09-05] MEDS ORDERED: PHENYLEPHRINE 10 MG/ML ONE (17:41)
[2020-09-05] MEDS ORDERED: SUCCINYLCHOLINE 20 MG/ML, 10ML ONE (17:41)
[2020-09-05] MEDS ORDERED: ONDANSETRON 2MG/ML, 2ML ONE (18:42)
[2020-09-05] MEDS ORDERED: NEOSTIGMINE 1 MG/ML, 10ML ONE (18:55)
[2020-09-05] MEDS ORDERED: GLYCOPYRROLATE 0.2MG/1ML, 5ML ONE ×2 (18:55)
[2020-09-05] MEDS ORDERED: FENTANYL PF 100 MCG/2ML ONE (19:29)
[2020-09-05] MEDS ORDERED: hydrALAzine 20 MG/ML, 1ML IV PRN (19:30)
[2020-09-05] MEDS: FENTANYL PF 100 MCG/2ML IV PRN ×2 (19:30→19:50)
[2020-09-05] MEDS ORDERED: HYDROmorphone 1 MG/ML, 1ML INJ IVPush PRN (19:30)
[2020-09-05] MEDS ORDERED: MEPERIDINE/PF 25MG/0.5ML IVPush PRN (19:30)
[2020-09-05] MEDS ORDERED: PROMETHAZINE 25 MG/ML, 1ML IVPush PRN (19:30)
[2020-09-05] MEDS ORDERED: ONDANSETRON 2MG/ML, 2ML IVPush PRN (19:30)
[2020-09-05] MEDS ORDERED: LABETALOL 5MG/ML, 20ML IV PRN (19:30)
[2020-09-05] MEDS ORDERED: HYDROmorphone 1 MG/ML, 1ML INJ ONE (20:07)
[2020-09-05] MEDS ORDERED: METHOCARBAMOL 1,000 MG in DEXTROSE 5% 100 ML IV PRN (20:30)
[2020-09-05] MEDS: INSULIN GLARGINE 100 UNITS/ML, PEN SQ-INSULIN SCH (21:00)
[2020-09-05 21:59] VITALS: BP 111/73
[2020-09-05] MEDS: ENOXAPARIN 40 MG/0.4 ML SQ SCH (22:23)
[2020-09-05] MEDS: morphine SULFATE 10 MG/ML, 1ML IV PRN ×2 (22:38→23:55)
[2020-09-05] MEDS: KETOROLAC 30 MG/1 ML IV PRN (22:38)
[2020-09-06] VITALS (8 sets, daily range): BP systolic 93–125; BP diastolic 62–79
[2020-09-06] MEDS: LACTATED RINGERS 1,000 ML IV SCH ×2 (01:38→11:40)
[2020-09-06] MEDS ORDERED: SODIUM CHLORIDE 0.9%, 500ML IVBOLUS ONE ×2 (03:30→11:30)
[2020-09-06] MEDS: PIPERACILLIN/TAZO 3.375 GM in DEXTROSE 5% 50 ML IV SCH ×4 (03:39→21:09)
[2020-09-06] MEDS: SODIUM CHLORIDE FLUSH 10ML SYR IVF SCH ×3 (03:49→20:41)
[2020-09-06] MEDS: morphine SULFATE 10 MG/ML, 1ML IV PRN ×2 (03:55→20:40)
[2020-09-06 05:35] LABS: ALBUMIN 1.1 g/dL (3.4-5.0); ANION GAP 7 mmol/L (5-15); CALCIUM 7.2 mg/dL (8.5-10.1); CHLORIDE 111 mmol/L (98-107)
[2020-09-06 05:36] LABS: CREATININE 0.93 mg/dL (0.55-1.02)
[2020-09-06 05:37] LABS: BASOPHILS % (AUTO) 0 % (0-1); EOSINOPHILS % (AUTO) 0 % (1-7); LYMPHOCYTES % (AUTO) 8 % (22-44); MEAN CORPUSCULAR HEMOGLOBIN 28.6 pg (27.0-34.8); MEAN CORPUSCULAR HGB CONC 32.9 g/dL (32.4-35.8); MEAN PLATELET VOLUME 7.2 fL (7.4-10.4); MONOCYTES % (AUTO) 4 % (2-9); NEUTROPHILS % (AUTO) 87 % (42-75); PLATELET COUNT 241 x10^3/uL (130-400); RED BLOOD COUNT 2.78 x10^6/uL (3.82-5.3); RED CELL DISTRIBUTION WIDTH 15.6 % (9.6-15.2)
[2020-09-06] MEDS: INSULIN LISPRO 100 UNITS/ML, PEN SQ-INSULIN SCH ×4 (06:22→21:04)
[2020-09-06 06:37] LABS: MD SCAN
[2020-09-06] MEDS: GLIPizide ER 2.5 MG TABLET PO SCH (08:00)
[2020-09-06] MEDS: LACTOBACILLUS CHEW TABLET PO SCH ×4 (08:47→20:51)
[2020-09-06] MEDS: FLUTICASONE NASAL SPRAY 16GM NAS SCH (08:47)
[2020-09-06] MEDS: TRIAMCINOLONE CRM 0.1%, 15GM TP SCH ×2 (08:48→20:52)
[2020-09-06] MEDS: KETOROLAC 30 MG/1 ML IV PRN ×2 (09:09→20:40)
[2020-09-06] MEDS: ONDANSETRON 2MG/ML, 2ML IV PRN (10:00)
[2020-09-06] MEDS ORDERED: AMINO ACIDS 10% IV SCH (17:00)
[2020-09-06] MEDS ORDERED: FAT EMUL IV SCH (17:00)
[2020-09-06] MEDS ORDERED: SMOF TPN IV SCH (17:00)
[2020-09-06] MEDS ORDERED: DEXTROSE 10% 500 ML IV PRN (17:00)
[2020-09-06] MEDS ORDERED: LACTATED RINGERS 1,000 ML IV SCH (17:00)
[2020-09-06] MEDS ORDERED: FILTER, DISP 1.2 MICRON FOR TPN/PVN IV PRN (17:00)
[2020-09-06] MEDS ORDERED: DEXTROSE 70% IV SCH (17:00)
[2020-09-06] MEDS ORDERED: DEXTROSE 50%, 50ML SYRINGE IVPush PRN (17:00)
[2020-09-06] MEDS ORDERED: [UNRECOGNIZED DRUG - OTHER] IV SCH (17:00)
[2020-09-06] MEDS ORDERED: TPN PER PHARMACY MC PRN (17:00)
[2020-09-06] MEDS ORDERED: SODIUM CHLORIDE 0.9% 1,000 ML IV SCH (18:00)
[2020-09-06] MEDS: SODIUM CHLORIDE 0.9% 1,000 ML IV SCH (18:07)
[2020-09-06] MEDS: INSULIN GLARGINE 100 UNITS/ML, PEN SQ-INSULIN SCH (21:00)
[2020-09-06] MEDS: ENOXAPARIN 40 MG/0.4 ML SQ SCH (22:28)
[2020-09-07] MEDS ORDERED: SODIUM CHLORIDE 0.9%, 500ML IVBOLUS ONE ×3 (00:30→11:30)
[2020-09-07 01:55] VITALS: BP 103/70
[2020-09-07] MEDS: KETOROLAC 30 MG/1 ML IV PRN ×3 (03:00→17:35)
[2020-09-07] MEDS: morphine SULFATE 10 MG/ML, 1ML IV PRN (03:01)
[2020-09-07] MEDS: PIPERACILLIN/TAZO 3.375 GM in DEXTROSE 5% 50 ML IV SCH ×4 (03:26→21:42)
[2020-09-07] MEDS: SODIUM CHLORIDE 0.9% 1,000 ML IV SCH ×2 (04:28→17:36)
[2020-09-07 06:02] LABS: BASOPHILS % (AUTO) 0 % (0-1); CHLORIDE 111 mmol/L (98-107); EOSINOPHILS % (AUTO) 1 % (1-7); LYMPHOCYTES % (AUTO) 10 % (22-44); MEAN CORPUSCULAR HEMOGLOBIN 28.7 pg (27.0-34.8); MEAN CORPUSCULAR HGB CONC 32.9 g/dL (32.4-35.8); MEAN PLATELET VOLUME 7.8 fL (7.4-10.4); MONOCYTES % (AUTO) 5 % (2-9); NEUTROPHILS % (AUTO) 84 % (42-75); PLATELET COUNT 191 x10^3/uL (130-400); RED CELL DISTRIBUTION WIDTH 16.2 % (9.6-15.2)
[2020-09-07 06:05] LABS: MD NO
[2020-09-07 06:12] LABS: ALKALINE PHOSPHATASE 108 U/L (45-117); ANION GAP 7 mmol/L (5-15); BILIRUBIN,TOTAL 0.2 mg/dL (0.2-1.0); CALCIUM 7.2 mg/dL (8.5-10.1); CREATININE 1.11 mg/dL (0.55-1.02); PREALBUMIN 5.8 mg/dL (20.0-40.0); TOTAL PROTEIN 4.7 g/dL (6.4-8.2); TRIGLYCERIDES 183 mg/dL (50-200)
[2020-09-07 06:41] LABS: ALANINE AMINOTRANSFERASE < 6 U/L (12-78)
[2020-09-07 06:55] VITALS: BP 99/68
[2020-09-07] MEDS: FLUTICASONE NASAL SPRAY 16GM NAS SCH (08:16)
[2020-09-07] MEDS: LACTOBACILLUS CHEW TABLET PO SCH ×3 (08:16→21:36)
[2020-09-07] MEDS: TRIAMCINOLONE CRM 0.1%, 15GM TP SCH ×2 (08:16→21:37)
[2020-09-07] MEDS: GLIPizide ER 2.5 MG TABLET PO SCH (08:16)
[2020-09-07] MEDS: SODIUM CHLORIDE FLUSH 10ML SYR IVF SCH ×2 (08:17→21:36)
[2020-09-07] MEDS: INSULIN LISPRO 100 UNITS/ML, PEN SQ-INSULIN SCH (08:17)
[2020-09-07] MEDS: ONDANSETRON 2MG/ML, 2ML IV PRN ×2 (08:19→18:56)
[2020-09-07] MEDS: INSULIN LISPRO 100 UNITS/ML, PEN VERY HIGH DOSE SS SQ-INSULIN SCH ×3 (10:21→23:31)
[2020-09-07 12:08] VITALS: BP 92/64
[2020-09-07] MEDS ORDERED: ALBUMIN HUMAN 25% 100 ML IV SCH (15:00)
[2020-09-07] MEDS ORDERED: [UNRECOGNIZED DRUG - OTHER] IV SCH (17:00)
[2020-09-07] MEDS ORDERED: FAT EMUL IV SCH (17:00)
[2020-09-07] MEDS ORDERED: DEXTROSE 70% IV SCH (17:00)
[2020-09-07] MEDS ORDERED: SMOF TPN IV SCH (17:00)
[2020-09-07] MEDS ORDERED: AMINO ACIDS 10% IV SCH (17:00)
[2020-09-07] MEDS: FILTER, DISP 1.2 MICRON FOR TPN/PVN IV PRN (17:11)
[2020-09-07 20:19] VITALS: BP 91/60
[2020-09-07] MEDS: ENOXAPARIN 40 MG/0.4 ML SQ SCH (21:57)
[2020-09-07] MEDS: INSULIN GLARGINE 100 UNITS/ML, PEN SQ-INSULIN SCH (22:11)
[2020-09-08 01:54] VITALS: BP 106/72
[2020-09-08] MEDS: PIPERACILLIN/TAZO 3.375 GM in DEXTROSE 5% 50 ML IV SCH ×4 (03:38→21:36)
[2020-09-08] MEDS: ONDANSETRON 2MG/ML, 2ML IV PRN ×3 (04:36→22:03)
[2020-09-08 05:11] LABS: BASOPHILS % (AUTO) 1 % (0-1); EOSINOPHILS % (AUTO) 3 % (1-7); LYMPHOCYTES % (AUTO) 12 % (22-44); MEAN CORPUSCULAR HEMOGLOBIN 28.8 pg (27.0-34.8); MEAN CORPUSCULAR HGB CONC 32.8 g/dL (32.4-35.8); MEAN PLATELET VOLUME 7.8 fL (7.4-10.4); MONOCYTES % (AUTO) 5 % (2-9); NEUTROPHILS % (AUTO) 80 % (42-75); PLATELET COUNT 186 x10^3/uL (130-400); RED BLOOD COUNT 2.88 x10^6/uL (3.82-5.3); RED CELL DISTRIBUTION WIDTH 16.7 % (9.6-15.2)
[2020-09-08 05:13] LABS: MD NO
[2020-09-08 05:20] LABS: ALBUMIN 1.1 g/dL (3.4-5.0); ANION GAP 5 mmol/L (5-15); CALCIUM 7.2 mg/dL (8.5-10.1); CHLORIDE 108 mmol/L (98-107)
[2020-09-08 05:22] LABS: ALANINE AMINOTRANSFERASE < 6 U/L (12-78)
[2020-09-08 05:23] LABS: ALKALINE PHOSPHATASE 142 U/L (45-117); BILIRUBIN,TOTAL 0.2 mg/dL (0.2-1.0); CREATININE 1.24 mg/dL (0.55-1.02); TOTAL PROTEIN 5.4 g/dL (6.4-8.2)
[2020-09-08] MEDS: INSULIN LISPRO 100 UNITS/ML, PEN VERY HIGH DOSE SS SQ-INSULIN SCH ×4 (05:27→23:00)
[2020-09-08 07:46] VITALS: BP 100/68
[2020-09-08] MEDS: LACTOBACILLUS CHEW TABLET PO SCH ×3 (07:54→22:38)
[2020-09-08] MEDS: TRIAMCINOLONE CRM 0.1%, 15GM TP SCH ×2 (07:54→22:38)
[2020-09-08] MEDS: GLIPizide ER 2.5 MG TABLET PO SCH (07:54)
[2020-09-08] MEDS: FLUTICASONE NASAL SPRAY 16GM NAS SCH (07:54)
[2020-09-08] MEDS: SODIUM CHLORIDE FLUSH 10ML SYR IVF SCH ×2 (07:55→22:38)
[2020-09-08] MEDS: KETOROLAC 30 MG/1 ML IV PRN (07:57)
[2020-09-08] MEDS ORDERED: ALBUMIN HUMAN 25% 100 ML IV ONE (09:00)
[2020-09-08 13:48] VITALS: BP 130/84
[2020-09-08] MEDS ORDERED: DEXTROSE 70% IV SCH (17:00)
[2020-09-08] MEDS ORDERED: SMOF TPN IV SCH (17:00)
[2020-09-08] MEDS ORDERED: AMINO ACID 10% IV SCH (17:00)
[2020-09-08] MEDS ORDERED: FAT EMUL IV SCH (17:00)
[2020-09-08] MEDS ORDERED: [UNRECOGNIZED DRUG - OTHER] IV SCH (17:00)
[2020-09-08] MEDS: FILTER, DISP 1.2 MICRON FOR TPN/PVN IV PRN (17:31)
[2020-09-08 19:31] VITALS: BP 139/84
[2020-09-08] MEDS: ENOXAPARIN 40 MG/0.4 ML SQ SCH (22:47)
[2020-09-08] MEDS: INSULIN GLARGINE 100 UNITS/ML, PEN SQ-INSULIN SCH (23:03)
[2020-09-09 00:43] VITALS: BP 125/84
[2020-09-09] MEDS: PIPERACILLIN/TAZO 3.375 GM in DEXTROSE 5% 50 ML IV SCH ×4 (03:31→23:35)
[2020-09-09] MEDS: INSULIN LISPRO 100 UNITS/ML, PEN VERY HIGH DOSE SS SQ-INSULIN SCH ×4 (05:00→23:49)
[2020-09-09 05:33] LABS: BASOPHILS % (AUTO) 1 % (0-1); EOSINOPHILS % (AUTO) 4 % (1-7); LYMPHOCYTES % (AUTO) 9 % (22-44); MEAN CORPUSCULAR HEMOGLOBIN 28.8 pg (27.0-34.8); MEAN CORPUSCULAR HGB CONC 33.2 g/dL (32.4-35.8); MEAN PLATELET VOLUME 7.7 fL (7.4-10.4); MONOCYTES % (AUTO) 5 % (2-9); NEUTROPHILS % (AUTO) 81 % (42-75); PLATELET COUNT 190 x10^3/uL (130-400); RED BLOOD COUNT 2.61 x10^6/uL (3.82-5.3)
[2020-09-09 05:35] LABS: MD NO
[2020-09-09 05:36] LABS: HCT (SEDRATE) 22.7 % (34.6-47.8)
[2020-09-09 05:50] LABS: ALKALINE PHOSPHATASE 229 U/L (45-117); BILIRUBIN,TOTAL 0.2 mg/dL (0.2-1.0); TOTAL PROTEIN 5.6 g/dL (6.4-8.2)
[2020-09-09 05:52] LABS: ALANINE AMINOTRANSFERASE 7 U/L (12-78); ALBUMIN 1.4 g/dL (3.4-5.0); ANION GAP 5 mmol/L (5-15); CALCIUM 7.7 mg/dL (8.5-10.1); CHLORIDE 108 mmol/L (98-107); CREATININE 1.05 mg/dL (0.55-1.02)
[2020-09-09 06:16] LABS: SEDIMENTATION RATE > 120 mm/hr (0-20)
[2020-09-09 07:52] VITALS: BP 118/80
[2020-09-09] MEDS: FLUTICASONE NASAL SPRAY 16GM NAS SCH (08:52)
[2020-09-09] MEDS: LACTOBACILLUS CHEW TABLET PO SCH ×3 (08:52→21:25)
[2020-09-09] MEDS: GLIPizide ER 2.5 MG TABLET PO SCH (08:52)
[2020-09-09] MEDS: SODIUM CHLORIDE FLUSH 10ML SYR IVF SCH ×2 (08:53→21:00)
[2020-09-09] MEDS: TRIAMCINOLONE CRM 0.1%, 15GM TP SCH ×2 (08:53→23:00)
[2020-09-09] MEDS: ONDANSETRON 2MG/ML, 2ML IV PRN (09:10)
[2020-09-09] MEDS: ACETAMINOPHEN 325 MG TABLET PO PRN ×2 (13:30→21:26)
[2020-09-09 13:49] VITALS: BP 139/81
[2020-09-09 15:04] LABS: BASOPHILS % (AUTO) 1 % (0-1); EOSINOPHILS % (AUTO) 5 % (1-7); LYMPHOCYTES % (AUTO) 9 % (22-44); MEAN CORPUSCULAR HEMOGLOBIN 28.7 pg (27.0-34.8); MEAN PLATELET VOLUME 7.4 fL (7.4-10.4); MONOCYTES % (AUTO) 6 % (2-9); NEUTROPHILS % (AUTO) 80 % (42-75); PLATELET COUNT 209 x10^3/uL (130-400); RED BLOOD COUNT 2.96 x10^6/uL (3.82-5.3); RED CELL DISTRIBUTION WIDTH 15.8 % (9.6-15.2)
[2020-09-09 15:09] LABS: MD NO
[2020-09-09] MEDS: FILTER, DISP 1.2 MICRON FOR TPN/PVN IV PRN (15:53)
[2020-09-09] MEDS: FUROSEMIDE 20 MG/2 ML IV SCH (15:55)
[2020-09-09] MEDS ORDERED: FAT EMUL IV SCH (17:00)
[2020-09-09] MEDS ORDERED: AMINO ACID 10% IV SCH (17:00)
[2020-09-09] MEDS ORDERED: DEXTROSE 70% IV SCH (17:00)
[2020-09-09] MEDS ORDERED: [UNRECOGNIZED DRUG - OTHER] IV SCH (17:00)
[2020-09-09] MEDS ORDERED: SMOF TPN IV SCH (17:00)
[2020-09-09 19:27] VITALS: BP 155/88
[2020-09-09] MEDS: morphine SULFATE 10 MG/ML, 1ML IV PRN (20:11)
[2020-09-09 20:48] LABS: TROPONIN I < 0.015 ng/mL (0.000-0.045)
[2020-09-09] MEDS: INSULIN GLARGINE 100 UNITS/ML, PEN SQ-INSULIN SCH (21:00)
[2020-09-09] MEDS: TRAZODONE 50MG TABLET PO PRN (21:26)
[2020-09-09] MEDS: ENOXAPARIN 40 MG/0.4 ML SQ SCH (23:53)
[2020-09-10 00:13] VITALS: BP 112/75
[2020-09-10 02:44] LABS: TROPONIN I < 0.015 ng/mL (0.000-0.045)
[2020-09-10 04:54] VITALS: BP 115/78
[2020-09-10] MEDS: PIPERACILLIN/TAZO 3.375 GM in DEXTROSE 5% 50 ML IV SCH ×4 (05:55→23:22)
[2020-09-10] MEDS: INSULIN LISPRO 100 UNITS/ML, PEN VERY HIGH DOSE SS SQ-INSULIN SCH ×4 (05:59→22:55)
[2020-09-10 06:46] LABS: ANION GAP 6 mmol/L (5-15); CALCIUM 7.8 mg/dL (8.5-10.1); CHLORIDE 106 mmol/L (98-107); CREATININE 1.06 mg/dL (0.55-1.02)
[2020-09-10 07:37] VITALS: BP 112/76
[2020-09-10] MEDS: FUROSEMIDE 20 MG/2 ML IV SCH ×2 (07:58→17:20)
[2020-09-10] MEDS: ONDANSETRON ODT 4 MG PO PRN (08:15)
[2020-09-10 08:51] LABS: TROPONIN I < 0.015 ng/mL (0.000-0.045)
[2020-09-10] MEDS: GLIPizide ER 2.5 MG TABLET PO SCH (09:15)
[2020-09-10] MEDS: FLUTICASONE NASAL SPRAY 16GM NAS SCH (09:16)
[2020-09-10] MEDS: TRIAMCINOLONE CRM 0.1%, 15GM TP SCH ×2 (09:16→21:42)
[2020-09-10] MEDS: SODIUM CHLORIDE FLUSH 10ML SYR IVF SCH ×2 (09:16→21:42)
[2020-09-10] MEDS: LACTOBACILLUS CHEW TABLET PO SCH ×3 (09:16→21:42)
[2020-09-10 13:50] VITALS: BP 136/86
[2020-09-10 14:25] LABS: TROPONIN I < 0.015 ng/mL (0.000-0.045)
[2020-09-10] MEDS ORDERED: [UNRECOGNIZED DRUG - OTHER] IV SCH (17:00)
[2020-09-10] MEDS ORDERED: AMINO ACID 10% IV SCH (17:00)
[2020-09-10] MEDS ORDERED: SMOF TPN IV SCH (17:00)
[2020-09-10] MEDS ORDERED: FAT EMUL IV SCH (17:00)
[2020-09-10] MEDS ORDERED: DEXTROSE 70% IV SCH (17:00)
[2020-09-10] MEDS: FILTER, DISP 1.2 MICRON FOR TPN/PVN IV PRN (17:20)
[2020-09-10] MEDS: SODIUM CHLORIDE 0.9% 1,000 ML IV SCH (17:21)
[2020-09-10 20:03] VITALS: BP 136/84
[2020-09-10] MEDS: ENOXAPARIN 40 MG/0.4 ML SQ SCH (21:43)
[2020-09-10] MEDS: INSULIN GLARGINE 100 UNITS/ML, PEN SQ-INSULIN SCH (23:23)
[2020-09-11 01:07] VITALS: BP 145/84
[2020-09-11] MEDS: INSULIN LISPRO 100 UNITS/ML, PEN VERY HIGH DOSE SS SQ-INSULIN SCH ×4 (05:00→23:20)
[2020-09-11] MEDS: PIPERACILLIN/TAZO 3.375 GM in DEXTROSE 5% 50 ML IV SCH (05:28)
[2020-09-11 06:05] LABS: ANION GAP 4 mmol/L (5-15); CALCIUM 7.8 mg/dL (8.5-10.1); CHLORIDE 103 mmol/L (98-107); CREATININE 0.97 mg/dL (0.55-1.02)
[2020-09-11 06:59] VITALS: BP 109/73
[2020-09-11] MEDS: FUROSEMIDE 20 MG/2 ML IV SCH ×2 (07:51→17:20)
[2020-09-11] MEDS: GLIPizide ER 2.5 MG TABLET PO SCH (07:52)
[2020-09-11] MEDS: SODIUM CHLORIDE FLUSH 10ML SYR IVF SCH ×2 (07:52→22:12)
[2020-09-11] MEDS: LACTOBACILLUS CHEW TABLET PO SCH ×3 (07:52→22:13)
[2020-09-11] MEDS: PIPERACILLIN/TAZO 4.5 GM in DEXTROSE 5% 100 ML IV SCH ×3 (08:07→23:12)
[2020-09-11] MEDS: TRIAMCINOLONE CRM 0.1%, 15GM TP SCH ×2 (09:30→22:14)
[2020-09-11] MEDS: FLUTICASONE NASAL SPRAY 16GM NAS SCH (09:30)
[2020-09-11 12:55] VITALS: BP 123/79
[2020-09-11] MEDS ORDERED: SMOF TPN IV SCH ×2 (17:00)
[2020-09-11] MEDS ORDERED: AMINO ACID 10% IV SCH ×2 (17:00)
[2020-09-11] MEDS ORDERED: [UNRECOGNIZED DRUG - OTHER] IV SCH (17:00)
[2020-09-11] MEDS ORDERED: DEXTROSE 70% IV SCH ×2 (17:00)
[2020-09-11] MEDS ORDERED: FAT EMUL IV SCH ×2 (17:00)
[2020-09-11] MEDS ORDERED: [UNRECOGNIZED DRUG - OTHER] IV SCH (17:00)
[2020-09-11] MEDS: DIPHENOXYLATE/ATROPINE TABLET PO PRN (17:20)
[2020-09-11] MEDS: FILTER, DISP 1.2 MICRON FOR TPN/PVN IV PRN (18:00)
[2020-09-11 18:27] VITALS: BP 136/85
[2020-09-11] MEDS: ONDANSETRON ODT 4 MG PO PRN (22:13)
[2020-09-11] MEDS: ENOXAPARIN 40 MG/0.4 ML SQ SCH (22:14)
[2020-09-11] MEDS: INSULIN GLARGINE 100 UNITS/ML, PEN SQ-INSULIN SCH (22:14)
[2020-09-12 00:09] VITALS: BP 101/64
[2020-09-12 01:17] VITALS: BP 102/69
[2020-09-12] MEDS: INSULIN LISPRO 100 UNITS/ML, PEN VERY HIGH DOSE SS SQ-INSULIN SCH ×4 (04:47→22:22)
[2020-09-12 05:46] LABS: ANION GAP 3 mmol/L (5-15); CALCIUM 7.7 mg/dL (8.5-10.1); CHLORIDE 101 mmol/L (98-107)
[2020-09-12] MEDS: PIPERACILLIN/TAZO 4.5 GM in DEXTROSE 5% 100 ML IV SCH ×3 (06:37→22:22)
[2020-09-12 06:47] VITALS: BP 117/78
[2020-09-12] MEDS: FUROSEMIDE 20 MG/2 ML IV SCH ×2 (07:52→17:01)
[2020-09-12] MEDS: SODIUM CHLORIDE FLUSH 10ML SYR IVF SCH ×2 (07:52→21:12)
[2020-09-12] MEDS: FLUTICASONE NASAL SPRAY 16GM NAS SCH (07:52)
[2020-09-12] MEDS: TRIAMCINOLONE CRM 0.1%, 15GM TP SCH ×2 (07:52→21:16)
[2020-09-12] MEDS: LACTOBACILLUS CHEW TABLET PO SCH ×3 (07:53→21:05)
[2020-09-12] MEDS: GLIPizide ER 2.5 MG TABLET PO SCH (07:53)
[2020-09-12] MEDS: DIPHENOXYLATE/ATROPINE TABLET PO PRN (09:11)
[2020-09-12 12:53] VITALS: BP 131/84
[2020-09-12] MEDS ORDERED: DEXTROSE 70% IV SCH (18:00)
[2020-09-12] MEDS ORDERED: [UNRECOGNIZED DRUG - OTHER] IV SCH (18:00)
[2020-09-12] MEDS ORDERED: FAT EMUL IV SCH (18:00)
[2020-09-12] MEDS ORDERED: SMOF TPN IV SCH (18:00)
[2020-09-12] MEDS ORDERED: AMINO ACID 10% IV SCH (18:00)
[2020-09-12 18:54] VITALS: BP 132/82
[2020-09-12] MEDS: morphine SULFATE 10 MG/ML, 1ML IV PRN (21:05)
[2020-09-12] MEDS: ENOXAPARIN 40 MG/0.4 ML SQ SCH (21:05)
[2020-09-12] MEDS: INSULIN GLARGINE 100 UNITS/ML, PEN SQ-INSULIN SCH (21:15)
[2020-09-12] MEDS: TRAZODONE 50MG TABLET PO PRN (22:21)
[2020-09-13] VITALS (10 sets, daily range): BP systolic 99–128; BP diastolic 65–74
[2020-09-13] MEDS: morphine SULFATE 10 MG/ML, 1ML IV PRN ×2 (00:44→05:27)
[2020-09-13] MEDS: ONDANSETRON 2MG/ML, 2ML IV PRN (04:55)
[2020-09-13 05:29] LABS: BASOPHILS % (AUTO) 1 % (0-1); EOSINOPHILS % (AUTO) 6 % (1-7); LYMPHOCYTES % (AUTO) 15 % (22-44); MEAN CORPUSCULAR HEMOGLOBIN 28.6 pg (27.0-34.8); MEAN CORPUSCULAR HGB CONC 33.6 g/dL (32.4-35.8); MEAN PLATELET VOLUME 7.4 fL (7.4-10.4); MONOCYTES % (AUTO) 10 % (2-9); NEUTROPHILS % (AUTO) 68 % (42-75); PLATELET COUNT 269 x10^3/uL (130-400); RED BLOOD COUNT 2.38 x10^6/uL (3.82-5.3); RED CELL DISTRIBUTION WIDTH 15.5 % (9.6-15.2)
[2020-09-13] MEDS: INSULIN LISPRO 100 UNITS/ML, PEN VERY HIGH DOSE SS SQ-INSULIN SCH ×4 (05:32→23:19)
[2020-09-13 05:40] LABS: MD NO
[2020-09-13 05:42] LABS: CHLORIDE 98 mmol/L (98-107)
[2020-09-13 05:50] LABS: ALANINE AMINOTRANSFERASE 7 U/L (12-78); ALBUMIN 1.3 g/dL (3.4-5.0); ALKALINE PHOSPHATASE 511 U/L (45-117); ANION GAP 3 mmol/L (5-15); BILIRUBIN,TOTAL 0.2 mg/dL (0.2-1.0); CALCIUM 7.7 mg/dL (8.5-10.1); CREATININE 0.92 mg/dL (0.55-1.02); TOTAL PROTEIN 5.9 g/dL (6.4-8.2)
[2020-09-13] MEDS: PIPERACILLIN/TAZO 4.5 GM in DEXTROSE 5% 100 ML IV SCH ×3 (06:41→23:19)
[2020-09-13] MEDS: GLIPizide ER 2.5 MG TABLET PO SCH (07:41)
[2020-09-13] MEDS: LACTOBACILLUS CHEW TABLET PO SCH ×3 (07:41→20:54)
[2020-09-13] MEDS: TRIAMCINOLONE CRM 0.1%, 15GM TP SCH ×2 (07:42→20:54)
[2020-09-13] MEDS: SODIUM CHLORIDE FLUSH 10ML SYR IVF SCH ×2 (07:42→20:53)
[2020-09-13] MEDS: FUROSEMIDE 20 MG/2 ML IV SCH ×2 (07:42→17:32)
[2020-09-13] MEDS: FLUTICASONE NASAL SPRAY 16GM NAS SCH (07:43)
[2020-09-13] MEDS: DIPHENOXYLATE/ATROPINE TABLET PO PRN (10:45)
[2020-09-13] MEDS ORDERED: FUROSEMIDE 40 MG/4 ML IV ONE (11:30)
[2020-09-13] MEDS ORDERED: DEXTROSE 70% IV SCH ×2 (17:00)
[2020-09-13] MEDS ORDERED: [UNRECOGNIZED DRUG - OTHER] IV SCH ×2 (17:00)
[2020-09-13] MEDS ORDERED: FAT EMUL IV SCH ×2 (17:00)
[2020-09-13] MEDS ORDERED: AMINO ACID 10% IV SCH ×2 (17:00)
[2020-09-13] MEDS ORDERED: SMOF TPN IV SCH ×2 (17:00)
[2020-09-13] MEDS: FILTER, DISP 1.2 MICRON FOR TPN/PVN IV PRN (17:32)
[2020-09-13] MEDS ORDERED: OMNIPAQUE 350 MG/ML, 75ML BOTTLE ONE (19:44)
[2020-09-13] MEDS: ENOXAPARIN 40 MG/0.4 ML SQ SCH (20:54)
[2020-09-13] MEDS: INSULIN GLARGINE 100 UNITS/ML, PEN SQ-INSULIN SCH (21:06)
[2020-09-14 00:52] VITALS: BP 121/81
[2020-09-14] MEDS: INSULIN LISPRO 100 UNITS/ML, PEN VERY HIGH DOSE SS SQ-INSULIN SCH ×4 (04:59→22:43)
[2020-09-14 05:46] LABS: BASOPHILS % (AUTO) 1 % (0-1); EOSINOPHILS % (AUTO) 8 % (1-7); LYMPHOCYTES % (AUTO) 13 % (22-44); MEAN CORPUSCULAR HEMOGLOBIN 28.8 pg (27.0-34.8); MEAN CORPUSCULAR HGB CONC 33.6 g/dL (32.4-35.8); MEAN PLATELET VOLUME 7.1 fL (7.4-10.4); MONOCYTES % (AUTO) 9 % (2-9); NEUTROPHILS % (AUTO) 70 % (42-75); PLATELET COUNT 306 x10^3/uL (130-400); RED BLOOD COUNT 2.83 x10^6/uL (3.82-5.3); RED CELL DISTRIBUTION WIDTH 15.5 % (9.6-15.2)
[2020-09-14 05:47] LABS: HCT (SEDRATE) 24.4 % (34.6-47.8)
[2020-09-14 06:04] LABS: CHLORIDE 102 mmol/L (98-107)
[2020-09-14 06:24] LABS: ALANINE AMINOTRANSFERASE 7 U/L (12-78); ALBUMIN 1.3 g/dL (3.4-5.0); ALKALINE PHOSPHATASE 546 U/L (45-117); ANION GAP 3 mmol/L (5-15); BILIRUBIN,TOTAL 0.2 mg/dL (0.2-1.0); CALCIUM 7.8 mg/dL (8.5-10.1); CREATININE 1.02 mg/dL (0.55-1.02); TOTAL PROTEIN 5.8 g/dL (6.4-8.2)
[2020-09-14 06:31] LABS: MD SCAN
[2020-09-14] MEDS: PIPERACILLIN/TAZO 4.5 GM in DEXTROSE 5% 100 ML IV SCH ×3 (06:39→22:42)
[2020-09-14 07:08] VITALS: BP 136/79
[2020-09-14] MEDS: GLIPizide ER 2.5 MG TABLET PO SCH (08:10)
[2020-09-14] MEDS: LACTOBACILLUS CHEW TABLET PO SCH ×3 (08:11→21:07)
[2020-09-14] MEDS: SODIUM CHLORIDE FLUSH 10ML SYR IVF SCH ×2 (08:11→21:07)
[2020-09-14] MEDS: TRIAMCINOLONE CRM 0.1%, 15GM TP SCH ×2 (08:12→21:07)
[2020-09-14] MEDS: FLUTICASONE NASAL SPRAY 16GM NAS SCH (08:12)
[2020-09-14] MEDS: FUROSEMIDE 20 MG/2 ML IV SCH ×2 (08:13→16:52)
[2020-09-14] MEDS: ONDANSETRON ODT 4 MG PO PRN ×2 (09:07→22:36)
[2020-09-14] MEDS: DIPHENOXYLATE/ATROPINE TABLET PO PRN (09:07)
[2020-09-14] MEDS ORDERED: ALBUMIN HUMAN 25% 100 ML IV ONE (11:00)
[2020-09-14] MEDS ORDERED: FUROSEMIDE 20 MG/2 ML IV ONE (11:00)
[2020-09-14] MEDS: morphine SULFATE 10 MG/ML, 1ML IV PRN ×2 (11:48→22:36)
[2020-09-14 13:15] VITALS: BP 124/78
[2020-09-14] MEDS ORDERED: DEXTROSE 70% IV SCH (17:00)
[2020-09-14] MEDS ORDERED: SMOF TPN IV SCH (17:00)
[2020-09-14] MEDS ORDERED: FAT EMUL IV SCH (17:00)
[2020-09-14] MEDS ORDERED: AMINO ACID 10% IV SCH (17:00)
[2020-09-14] MEDS ORDERED: [UNRECOGNIZED DRUG - OTHER] IV SCH (17:00)
[2020-09-14] MEDS: FILTER, DISP 1.2 MICRON FOR TPN/PVN IV PRN (17:51)
[2020-09-14 19:16] VITALS: BP 122/80
[2020-09-14] MEDS: ENOXAPARIN 40 MG/0.4 ML SQ SCH (21:08)
[2020-09-14] MEDS: INSULIN GLARGINE 100 UNITS/ML, PEN SQ-INSULIN SCH (21:30)
[2020-09-15 01:26] VITALS: BP 107/62
[2020-09-15] MEDS: ONDANSETRON 2MG/ML, 2ML IV PRN (01:44)
[2020-09-15 04:43] LABS: ANION GAP 4 mmol/L (5-15); CALCIUM 8.1 mg/dL (8.5-10.1); CHLORIDE 101 mmol/L (98-107)
[2020-09-15] MEDS: INSULIN LISPRO 100 UNITS/ML, PEN VERY HIGH DOSE SS SQ-INSULIN SCH ×4 (04:49→22:58)
[2020-09-15] MEDS: morphine SULFATE 10 MG/ML, 1ML IV PRN (04:49)
[2020-09-15] MEDS: PIPERACILLIN/TAZO 4.5 GM in DEXTROSE 5% 100 ML IV SCH ×3 (06:37→22:58)
[2020-09-15 06:54] VITALS: BP 115/74
[2020-09-15] MEDS: GLIPizide ER 2.5 MG TABLET PO SCH (09:13)
[2020-09-15] MEDS: LACTOBACILLUS CHEW TABLET PO SCH ×3 (09:14→21:01)
[2020-09-15] MEDS: SODIUM CHLORIDE FLUSH 10ML SYR IVF SCH ×2 (09:14→21:01)
[2020-09-15] MEDS: FUROSEMIDE 20 MG/2 ML IV SCH ×2 (09:14→17:28)
[2020-09-15] MEDS: TRIAMCINOLONE CRM 0.1%, 15GM TP SCH ×2 (09:15→21:03)
[2020-09-15] MEDS: FLUTICASONE NASAL SPRAY 16GM NAS SCH (09:16)
[2020-09-15] MEDS ORDERED: ALBUMIN HUMAN 25% 100 ML IV ONE (09:30)
[2020-09-15 11:47] VITALS: BP 139/86
[2020-09-15] MEDS ORDERED: FAT EMUL IV SCH (17:00)
[2020-09-15] MEDS ORDERED: [UNRECOGNIZED DRUG - OTHER] IV SCH (17:00)
[2020-09-15] MEDS ORDERED: SMOF TPN IV SCH (17:00)
[2020-09-15] MEDS ORDERED: DEXTROSE 70% IV SCH (17:00)
[2020-09-15] MEDS ORDERED: AMINO ACID 10% IV SCH (17:00)
[2020-09-15] MEDS: FILTER, DISP 1.2 MICRON FOR TPN/PVN IV PRN (17:27)
[2020-09-15 18:19] VITALS: BP 133/82
[2020-09-15 18:21] LABS: OCCULT BLOOD NEGATIVE (NEGATIVE)
[2020-09-15] MEDS: INSULIN GLARGINE 100 UNITS/ML, PEN SQ-INSULIN SCH (21:03)
[2020-09-15] MEDS: ENOXAPARIN 40 MG/0.4 ML SQ SCH (21:21)
[2020-09-16 01:15] VITALS: BP 126/78
[2020-09-16] MEDS: INSULIN LISPRO 100 UNITS/ML, PEN VERY HIGH DOSE SS SQ-INSULIN SCH ×4 (05:04→20:59)
[2020-09-16] MEDS: ONDANSETRON 2MG/ML, 2ML IV PRN ×2 (05:24→10:07)
[2020-09-16] MEDS: PIPERACILLIN/TAZO 4.5 GM in DEXTROSE 5% 100 ML IV SCH ×3 (06:06→22:29)
[2020-09-16 06:30] LABS: BASOPHILS % (AUTO) 1 % (0-1); EOSINOPHILS % (AUTO) 7 % (1-7); LYMPHOCYTES % (AUTO) 11 % (22-44); MEAN CORPUSCULAR HEMOGLOBIN 28.6 pg (27.0-34.8); MEAN CORPUSCULAR HGB CONC 33.2 g/dL (32.4-35.8); MEAN PLATELET VOLUME 7.1 fL (7.4-10.4); MONOCYTES % (AUTO) 6 % (2-9); NEUTROPHILS % (AUTO) 76 % (42-75); PLATELET COUNT 398 x10^3/uL (130-400); RED BLOOD COUNT 2.72 x10^6/uL (3.82-5.3); RED CELL DISTRIBUTION WIDTH 15.9 % (9.6-15.2)
[2020-09-16] MEDS: morphine SULFATE 10 MG/ML, 1ML IV PRN (06:31)
[2020-09-16 06:33] LABS: MD NO
[2020-09-16 06:56] LABS: ALANINE AMINOTRANSFERASE 9 U/L (12-78); ALBUMIN 2.1 g/dL (3.4-5.0); ANION GAP 7 mmol/L (5-15); CALCIUM 8.6 mg/dL (8.5-10.1); CHLORIDE 101 mmol/L (98-107); CREATININE 1.17 mg/dL (0.55-1.02)
[2020-09-16 07:00] LABS: ALKALINE PHOSPHATASE 802 U/L (45-117); BILIRUBIN,TOTAL 0.4 mg/dL (0.2-1.0); TOTAL PROTEIN 6.9 g/dL (6.4-8.2); TRIGLYCERIDES 190 mg/dL (50-200)
[2020-09-16] MEDS: GLIPizide ER 2.5 MG TABLET PO SCH (08:31)
[2020-09-16] MEDS: FUROSEMIDE 20 MG/2 ML IV SCH ×2 (08:31→16:27)
[2020-09-16] MEDS: LACTOBACILLUS CHEW TABLET PO SCH ×3 (08:31→20:58)
[2020-09-16] MEDS: TRIAMCINOLONE CRM 0.1%, 15GM TP SCH ×2 (08:31→20:58)
[2020-09-16] MEDS: SODIUM CHLORIDE FLUSH 10ML SYR IVF SCH ×2 (08:32→20:59)
[2020-09-16] MEDS: FLUTICASONE NASAL SPRAY 16GM NAS SCH (08:32)
[2020-09-16 09:28] VITALS: BP 108/73
[2020-09-16] MEDS: ACETAMINOPHEN 325 MG TABLET PO PRN ×2 (10:06→21:07)
[2020-09-16 14:39] VITALS: BP 103/67
[2020-09-16] MEDS: FILTER, DISP 1.2 MICRON FOR TPN/PVN IV PRN (16:28)
[2020-09-16] MEDS: SODIUM CHLORIDE 0.9% 1,000 ML IV SCH (16:34)
[2020-09-16] MEDS ORDERED: FAT EMUL IV SCH (17:00)
[2020-09-16] MEDS ORDERED: [UNRECOGNIZED DRUG - OTHER] IV SCH (17:00)
[2020-09-16] MEDS ORDERED: AMINO ACID 10% IV SCH (17:00)
[2020-09-16] MEDS ORDERED: SMOF TPN IV SCH (17:00)
[2020-09-16] MEDS ORDERED: DEXTROSE 70% IV SCH (17:00)
[2020-09-16 18:37] VITALS: BP 124/81
[2020-09-16] MEDS: INSULIN GLARGINE 100 UNITS/ML, PEN SQ-INSULIN SCH (20:59)
[2020-09-16] MEDS: ENOXAPARIN 40 MG/0.4 ML SQ SCH (21:07)
[2020-09-16] MEDS: TRAZODONE 50MG TABLET PO PRN (21:07)
[2020-09-17 01:38] VITALS: BP 119/78
[2020-09-17] MEDS: INSULIN LISPRO 100 UNITS/ML, PEN VERY HIGH DOSE SS SQ-INSULIN SCH ×4 (02:48→21:05)
[2020-09-17] MEDS: PIPERACILLIN/TAZO 4.5 GM in DEXTROSE 5% 100 ML IV SCH ×3 (05:47→22:37)
[2020-09-17 06:19] LABS: BASOPHILS % (AUTO) 1 % (0-1); EOSINOPHILS % (AUTO) 6 % (1-7); LYMPHOCYTES % (AUTO) 11 % (22-44); MEAN CORPUSCULAR HGB CONC 34.1 g/dL (32.4-35.8); MEAN PLATELET VOLUME 7.6 fL (7.4-10.4); MONOCYTES % (AUTO) 6 % (2-9); NEUTROPHILS % (AUTO) 77 % (42-75); PLATELET COUNT 341 x10^3/uL (130-400); RED BLOOD COUNT 2.42 x10^6/uL (3.82-5.3); RED CELL DISTRIBUTION WIDTH 15.9 % (9.6-15.2)
[2020-09-17 06:24] LABS: MD NO
[2020-09-17 06:30] LABS: CHLORIDE 102 mmol/L (98-107)
[2020-09-17 06:33] LABS: ANION GAP 5 mmol/L (5-15); CREATININE 1.14 mg/dL (0.55-1.02)
[2020-09-17 06:38] VITALS: BP 110/73
[2020-09-17] MEDS: LACTOBACILLUS CHEW TABLET PO SCH ×3 (07:52→21:02)
[2020-09-17] MEDS: FLUTICASONE NASAL SPRAY 16GM NAS SCH (07:52)
[2020-09-17] MEDS: TRIAMCINOLONE CRM 0.1%, 15GM TP SCH ×2 (07:52→21:02)
[2020-09-17] MEDS: GLIPizide ER 2.5 MG TABLET PO SCH (07:52)
[2020-09-17] MEDS: FUROSEMIDE 20 MG/2 ML IV SCH ×2 (07:53→16:37)
[2020-09-17] MEDS: SODIUM CHLORIDE FLUSH 10ML SYR IVF SCH ×2 (07:54→21:06)
[2020-09-17] MEDS: morphine SULFATE 10 MG/ML, 1ML IV PRN (09:02)
[2020-09-17 13:20] VITALS: BP 102/68
[2020-09-17] MEDS ORDERED: IRON SUCROSE COMPLEX 100MG/5ML IV ONE (13:53)
[2020-09-17] MEDS: FILTER, DISP 1.2 MICRON FOR TPN/PVN IV PRN (16:38)
[2020-09-17] MEDS ORDERED: DEXTROSE 70% IV SCH (17:00)
[2020-09-17] MEDS ORDERED: AMINO ACID 10% IV SCH (17:00)
[2020-09-17] MEDS ORDERED: SMOF TPN IV SCH (17:00)
[2020-09-17] MEDS ORDERED: FAT EMUL IV SCH (17:00)
[2020-09-17] MEDS ORDERED: [UNRECOGNIZED DRUG - OTHER] IV SCH (17:00)
[2020-09-17 18:54] VITALS: BP 126/80
[2020-09-17] MEDS: ACETAMINOPHEN 325 MG TABLET PO PRN (19:23)
[2020-09-17] MEDS: INSULIN GLARGINE 100 UNITS/ML, PEN SQ-INSULIN SCH (21:03)
[2020-09-17] MEDS: ENOXAPARIN 40 MG/0.4 ML SQ SCH (21:03)
[2020-09-17] MEDS: TRAZODONE 50MG TABLET PO PRN (22:37)
[2020-09-18] VITALS (7 sets, daily range): BP systolic 106–132; BP diastolic 71–84
[2020-09-18] MEDS: INSULIN LISPRO 100 UNITS/ML, PEN VERY HIGH DOSE SS SQ-INSULIN SCH ×4 (03:26→21:00)
[2020-09-18] MEDS: DIPHENOXYLATE/ATROPINE TABLET PO PRN (04:19)
[2020-09-18] MEDS: PIPERACILLIN/TAZO 4.5 GM in DEXTROSE 5% 100 ML IV SCH ×2 (05:40→16:31)
[2020-09-18 06:18] LABS: ANION GAP 7 mmol/L (5-15); CALCIUM 7.6 mg/dL (8.5-10.1); CHLORIDE 101 mmol/L (98-107); CREATININE 1.07 mg/dL (0.55-1.02)
[2020-09-18] MEDS ORDERED: MAALOX/HYOSCYAMINE/LIDOCAINE 45 ML BTL PO ONE (08:00)
[2020-09-18] MEDS: FLUTICASONE NASAL SPRAY 16GM NAS SCH (08:57)
[2020-09-18] MEDS: IRON SUCROSE COMPLEX 100MG/5ML IV SCH (08:57)
[2020-09-18] MEDS: GLIPizide ER 2.5 MG TABLET PO SCH (08:58)
[2020-09-18] MEDS: LACTOBACILLUS CHEW TABLET PO SCH ×3 (08:58→21:10)
[2020-09-18] MEDS: FUROSEMIDE 20 MG/2 ML IV SCH ×2 (08:58→16:32)
[2020-09-18] MEDS: TRIAMCINOLONE CRM 0.1%, 15GM TP SCH ×2 (08:59→21:00)
[2020-09-18] MEDS: SODIUM CHLORIDE FLUSH 10ML SYR IVF SCH ×2 (09:00→21:10)
[2020-09-18] MEDS: FILTER, DISP 1.2 MICRON FOR TPN/PVN IV PRN (16:32)
[2020-09-18] MEDS ORDERED: DEXTROSE 70% IV SCH (17:00)
[2020-09-18] MEDS ORDERED: [UNRECOGNIZED DRUG - OTHER] IV SCH (17:00)
[2020-09-18] MEDS ORDERED: AMINO ACID 10% IV SCH (17:00)
[2020-09-18] MEDS ORDERED: FAT EMUL IV SCH (17:00)
[2020-09-18] MEDS ORDERED: SMOF TPN IV SCH (17:00)
[2020-09-18] MEDS: ENOXAPARIN 40 MG/0.4 ML SQ SCH (19:51)
[2020-09-18] MEDS: INSULIN GLARGINE 100 UNITS/ML, PEN SQ-INSULIN SCH (21:00)
[2020-09-19] MEDS: DIPHENOXYLATE/ATROPINE TABLET PO PRN ×2 (00:12→10:27)
[2020-09-19] MEDS: PIPERACILLIN/TAZO 4.5 GM in DEXTROSE 5% 100 ML IV SCH ×4 (00:12→23:52)
[2020-09-19] MEDS: TRAZODONE 50MG TABLET PO PRN ×2 (00:48→23:51)
[2020-09-19 01:56] VITALS: BP 138/67
[2020-09-19] MEDS ORDERED: HYDROcodone/APAP 5/325 TABLET ONE ×2 (02:53→03:00)
[2020-09-19] MEDS: INSULIN LISPRO 100 UNITS/ML, PEN VERY HIGH DOSE SS SQ-INSULIN SCH ×4 (03:00→21:17)
[2020-09-19] MEDS: ONDANSETRON 2MG/ML, 2ML IV PRN (05:30)
[2020-09-19 05:37] LABS: BASOPHILS % (AUTO) 1 % (0-1); EOSINOPHILS % (AUTO) 5 % (1-7); LYMPHOCYTES % (AUTO) 11 % (22-44); MEAN CORPUSCULAR HEMOGLOBIN 28.7 pg (27.0-34.8); MEAN CORPUSCULAR HGB CONC 33.6 g/dL (32.4-35.8); MONOCYTES % (AUTO) 7 % (2-9); NEUTROPHILS % (AUTO) 76 % (42-75); PLATELET COUNT 408 x10^3/uL (130-400); RED BLOOD COUNT 2.95 x10^6/uL (3.82-5.3); RED CELL DISTRIBUTION WIDTH 15.8 % (9.6-15.2)
[2020-09-19 05:50] LABS: ANION GAP 6 mmol/L (5-15); CALCIUM 7.9 mg/dL (8.5-10.1); CHLORIDE 106 mmol/L (98-107); CREATININE 1.18 mg/dL (0.55-1.02)
[2020-09-19 05:51] LABS: MD NO
[2020-09-19 05:55] LABS: PREALBUMIN 15.5 mg/dL (20.0-40.0)
[2020-09-19 07:51] VITALS: BP 131/85
[2020-09-19] MEDS: TRIAMCINOLONE CRM 0.1%, 15GM TP SCH ×2 (08:00→21:16)
[2020-09-19] MEDS: FLUTICASONE NASAL SPRAY 16GM NAS SCH (08:00)
[2020-09-19] MEDS: LACTOBACILLUS CHEW TABLET PO SCH ×3 (08:01→21:16)
[2020-09-19] MEDS: IRON SUCROSE COMPLEX 100MG/5ML IV SCH (08:01)
[2020-09-19] MEDS: FUROSEMIDE 20 MG/2 ML IV SCH (08:01)
[2020-09-19] MEDS: SODIUM CHLORIDE FLUSH 10ML SYR IVF SCH ×2 (08:01→21:16)
[2020-09-19] MEDS: GLIPizide ER 2.5 MG TABLET PO SCH (08:01)
[2020-09-19 14:43] VITALS: BP 132/84
[2020-09-19] MEDS ORDERED: FAT EMUL IV SCH (17:00)
[2020-09-19] MEDS ORDERED: AMINO ACID 10% IV SCH (17:00)
[2020-09-19] MEDS ORDERED: [UNRECOGNIZED DRUG - OTHER] IV SCH (17:00)
[2020-09-19] MEDS ORDERED: SMOF TPN IV SCH (17:00)
[2020-09-19] MEDS ORDERED: DEXTROSE 70% IV SCH (17:00)
[2020-09-19] MEDS: FILTER, DISP 1.2 MICRON FOR TPN/PVN IV PRN (17:25)
[2020-09-19 19:59] VITALS: BP 123/82
[2020-09-19] MEDS: INSULIN GLARGINE 100 UNITS/ML, PEN SQ-INSULIN SCH (21:17)
[2020-09-20 01:39] VITALS: BP 113/74
[2020-09-20] MEDS: INSULIN LISPRO 100 UNITS/ML, PEN VERY HIGH DOSE SS SQ-INSULIN SCH ×4 (03:27→21:22)
[2020-09-20 04:07] LABS: ANION GAP 1 mmol/L (5-15); CHLORIDE 109 mmol/L (98-107); CREATININE 0.96 mg/dL (0.55-1.02)
[2020-09-20 07:07] VITALS: BP 137/82
[2020-09-20] MEDS ORDERED: HYDROcodone/APAP 5/325 TABLET ONE ×2 (07:12→16:15)
[2020-09-20] MEDS: SODIUM CHLORIDE FLUSH 10ML SYR IVF SCH ×2 (09:00→21:22)
[2020-09-20] MEDS: LACTOBACILLUS CHEW TABLET PO SCH ×3 (09:20→21:21)
[2020-09-20] MEDS: PIPERACILLIN/TAZO 4.5 GM in DEXTROSE 5% 100 ML IV SCH ×3 (09:20→23:54)
[2020-09-20] MEDS: GLIPizide ER 2.5 MG TABLET PO SCH (09:20)
[2020-09-20] MEDS: IRON SUCROSE COMPLEX 100MG/5ML IV SCH (09:20)
[2020-09-20] MEDS: TRIAMCINOLONE CRM 0.1%, 15GM TP SCH ×2 (09:21→21:22)
[2020-09-20] MEDS: FLUTICASONE NASAL SPRAY 16GM NAS SCH (09:21)
[2020-09-20 12:05] VITALS: BP 110/66
[2020-09-20] MEDS: FILTER, DISP 1.2 MICRON FOR TPN/PVN IV PRN (16:38)
[2020-09-20] MEDS ORDERED: AMINO ACID 10% IV SCH (17:00)
[2020-09-20] MEDS ORDERED: FAT EMUL IV SCH (17:00)
[2020-09-20] MEDS ORDERED: [UNRECOGNIZED DRUG - OTHER] IV SCH (17:00)
[2020-09-20] MEDS ORDERED: SMOF TPN IV SCH (17:00)
[2020-09-20] MEDS ORDERED: DEXTROSE 70% IV SCH (17:00)
[2020-09-20 19:38] VITALS: BP 138/85
[2020-09-20] MEDS: TRAZODONE 50MG TABLET PO PRN (21:21)
[2020-09-20] MEDS: INSULIN GLARGINE 100 UNITS/ML, PEN SQ-INSULIN SCH (21:21)
[2020-09-20] MEDS: DIPHENOXYLATE/ATROPINE TABLET PO PRN (23:17)
[2020-09-21 00:08] VITALS: BP 118/82
[2020-09-21] MEDS: INSULIN LISPRO 100 UNITS/ML, PEN VERY HIGH DOSE SS SQ-INSULIN SCH ×4 (03:09→21:39)
[2020-09-21 05:07] LABS: BASOPHILS % (AUTO) 1 % (0-1); EOSINOPHILS % (AUTO) 5 % (1-7); LYMPHOCYTES % (AUTO) 12 % (22-44); MEAN CORPUSCULAR HEMOGLOBIN 29.6 pg (27.0-34.8); MEAN CORPUSCULAR HGB CONC 34.1 g/dL (32.4-35.8); MEAN PLATELET VOLUME 7.1 fL (7.4-10.4); MONOCYTES % (AUTO) 6 % (2-9); NEUTROPHILS % (AUTO) 76 % (42-75); PLATELET COUNT 398 x10^3/uL (130-400); RED BLOOD COUNT 2.73 x10^6/uL (3.82-5.3); RED CELL DISTRIBUTION WIDTH 15.7 % (9.6-15.2)
[2020-09-21 05:08] LABS: MD NO
[2020-09-21 05:11] LABS: ANION GAP 6 mmol/L (5-15); CALCIUM 8.1 mg/dL (8.5-10.1); CHLORIDE 110 mmol/L (98-107); CREATININE 0.83 mg/dL (0.55-1.02)
[2020-09-21 06:33] VITALS: BP 152/82
[2020-09-21] MEDS: GLIPizide ER 2.5 MG TABLET PO SCH (09:18)
[2020-09-21] MEDS: IRON SUCROSE COMPLEX 100MG/5ML IV SCH (09:18)
[2020-09-21] MEDS: LACTOBACILLUS CHEW TABLET PO SCH ×3 (09:18→21:29)
[2020-09-21] MEDS: PIPERACILLIN/TAZO 4.5 GM in DEXTROSE 5% 100 ML IV SCH ×3 (09:19→23:32)
[2020-09-21] MEDS: FLUTICASONE NASAL SPRAY 16GM NAS SCH (09:19)
[2020-09-21] MEDS: SODIUM CHLORIDE FLUSH 10ML SYR IVF SCH ×2 (09:19→21:00)
[2020-09-21] MEDS: TRIAMCINOLONE CRM 0.1%, 15GM TP SCH ×2 (09:20→21:00)
[2020-09-21 12:20] VITALS: BP 122/80
[2020-09-21] MEDS: FILTER, DISP 1.2 MICRON FOR TPN/PVN IV PRN (16:34)
[2020-09-21] MEDS ORDERED: SMOF TPN IV SCH (17:00)
[2020-09-21] MEDS ORDERED: FAT EMUL IV SCH (17:00)
[2020-09-21] MEDS ORDERED: [UNRECOGNIZED DRUG - OTHER] IV SCH (17:00)
[2020-09-21] MEDS ORDERED: AMINO ACID 10% IV SCH (17:00)
[2020-09-21] MEDS ORDERED: DEXTROSE 70% IV SCH (17:00)
[2020-09-21 19:42] VITALS: BP 115/73
[2020-09-21] MEDS: ONDANSETRON ODT 4 MG PO PRN (21:29)
[2020-09-21] MEDS: HEPARIN 5,000 UNITS/ML, 1ML SQ SCH (21:29)
[2020-09-21] MEDS: INSULIN GLARGINE 100 UNITS/ML, PEN SQ-INSULIN SCH (21:39)
[2020-09-21] MEDS: TRAZODONE 50MG TABLET PO PRN (23:30)
[2020-09-21] MEDS: ACETAMINOPHEN 325 MG TABLET PO PRN (23:37)
[2020-09-22] VITALS (7 sets, daily range): BP systolic 107–163; BP diastolic 68–88
[2020-09-22] MEDS: morphine SULFATE 10 MG/ML, 1ML IV PRN ×2 (02:29→02:59)
[2020-09-22] MEDS: HEPARIN 5,000 UNITS/ML, 1ML SQ SCH ×3 (02:59→18:10)
[2020-09-22] MEDS: INSULIN LISPRO 100 UNITS/ML, PEN VERY HIGH DOSE SS SQ-INSULIN SCH ×4 (03:00→20:37)
[2020-09-22 03:27] LABS: BASOPHILS % (AUTO) 1 % (0-1); EOSINOPHILS % (AUTO) 5 % (1-7); LYMPHOCYTES % (AUTO) 10 % (22-44); MEAN CORPUSCULAR HEMOGLOBIN 29.3 pg (27.0-34.8); MEAN CORPUSCULAR HGB CONC 33.4 g/dL (32.4-35.8); MEAN PLATELET VOLUME 7.1 fL (7.4-10.4); MONOCYTES % (AUTO) 7 % (2-9); NEUTROPHILS % (AUTO) 77 % (42-75); PLATELET COUNT 390 x10^3/uL (130-400); RED BLOOD COUNT 2.75 x10^6/uL (3.82-5.3); RED CELL DISTRIBUTION WIDTH 16.1 % (9.6-15.2)
[2020-09-22 03:28] LABS: MD NO
[2020-09-22 03:38] LABS: ANION GAP 8 mmol/L (5-15); CHLORIDE 122 mmol/L (98-107); CREATININE 0.56 mg/dL (0.55-1.02)
[2020-09-22 03:55] LABS: CALCIUM 6.1 mg/dL (8.5-10.1)
[2020-09-22] MEDS: PIPERACILLIN/TAZO 4.5 GM in DEXTROSE 5% 100 ML IV SCH ×2 (09:25→15:55)
[2020-09-22] MEDS: LACTOBACILLUS CHEW TABLET PO SCH ×3 (09:25→21:35)
[2020-09-22] MEDS: GLIPizide ER 2.5 MG TABLET PO SCH (09:25)
[2020-09-22] MEDS: TRIAMCINOLONE CRM 0.1%, 15GM TP SCH ×2 (09:26→21:39)
[2020-09-22] MEDS: SODIUM CHLORIDE FLUSH 10ML SYR IVF SCH ×2 (09:26→21:35)
[2020-09-22] MEDS: FLUTICASONE NASAL SPRAY 16GM NAS SCH (09:26)
[2020-09-22] MEDS: ONDANSETRON 2MG/ML, 2ML IV PRN (09:39)
[2020-09-22] MEDS: METOCLOPRAMIDE 5 MG/ML, 2ML IVPush PRN ×2 (12:07→18:10)
[2020-09-22 12:08] LABS: ANION GAP 5 mmol/L (5-15); CALCIUM 8.3 mg/dL (8.5-10.1); CHLORIDE 112 mmol/L (98-107)
[2020-09-22] MEDS: FILTER, DISP 1.2 MICRON FOR TPN/PVN IV PRN (15:54)
[2020-09-22] MEDS ORDERED: SMOF TPN IV SCH (17:00)
[2020-09-22] MEDS ORDERED: [UNRECOGNIZED DRUG - OTHER] IV SCH (17:00)
[2020-09-22] MEDS ORDERED: FAT EMUL IV SCH (17:00)
[2020-09-22] MEDS ORDERED: AMINO ACID 10% IV SCH (17:00)
[2020-09-22] MEDS ORDERED: DEXTROSE 70% IV SCH (17:00)
[2020-09-22] MEDS: INSULIN GLARGINE 100 UNITS/ML, PEN SQ-INSULIN SCH (21:36)
[2020-09-22] MEDS: TRAZODONE 50MG TABLET PO PRN (21:37)
[2020-09-23] MEDS: PIPERACILLIN/TAZO 4.5 GM in DEXTROSE 5% 100 ML IV SCH ×3 (00:05→17:20)
[2020-09-23 01:41] VITALS: BP 156/78
[2020-09-23] MEDS: INSULIN LISPRO 100 UNITS/ML, PEN VERY HIGH DOSE SS SQ-INSULIN SCH ×4 (03:00→20:46)
[2020-09-23] MEDS: HEPARIN 5,000 UNITS/ML, 1ML SQ SCH ×3 (03:00→20:45)
[2020-09-23 07:03] VITALS: BP 145/82
[2020-09-23] MEDS: METOCLOPRAMIDE 5 MG/ML, 2ML IVPush PRN (07:21)
[2020-09-23] MEDS ORDERED: GLIPizide ER 2.5 MG TABLET PO SCH (08:00)
[2020-09-23 09:13] LABS: BASOPHILS % (AUTO) 1 % (0-1); EOSINOPHILS % (AUTO) 5 % (1-7); LYMPHOCYTES % (AUTO) 7 % (22-44); MEAN CORPUSCULAR HEMOGLOBIN 28.5 pg (27.0-34.8); MEAN CORPUSCULAR HGB CONC 33.1 g/dL (32.4-35.8); MEAN PLATELET VOLUME 7.1 fL (7.4-10.4); MONOCYTES % (AUTO) 6 % (2-9); NEUTROPHILS % (AUTO) 82 % (42-75); PLATELET COUNT 522 x10^3/uL (130-400); RED BLOOD COUNT 3.68 x10^6/uL (3.82-5.3); RED CELL DISTRIBUTION WIDTH 18.1 % (9.6-15.2)
[2020-09-23 09:23] LABS: MD NO
[2020-09-23 09:31] LABS: HCT (SEDRATE) 31.3 % (34.6-47.8)
[2020-09-23 09:38] LABS: ALANINE AMINOTRANSFERASE 19 U/L (12-78); ALBUMIN 2.2 g/dL (3.4-5.0); ALKALINE PHOSPHATASE 1104 U/L (45-117); BILIRUBIN,TOTAL 0.7 mg/dL (0.2-1.0); CALCIUM 8.7 mg/dL (8.5-10.1); PREALBUMIN 18.8 mg/dL (20.0-40.0); TOTAL PROTEIN 7.3 g/dL (6.4-8.2)
[2020-09-23] MEDS: LACTOBACILLUS CHEW TABLET PO SCH ×3 (09:42→20:46)
[2020-09-23 09:56] LABS: ANION GAP 6 mmol/L (5-15); CHLORIDE 115 mmol/L (98-107)
[2020-09-23] MEDS: FLUTICASONE NASAL SPRAY 16GM NAS SCH (09:59)
[2020-09-23] MEDS ORDERED: HYDROmorphone 1 MG/ML, 1ML INJ IV ONE (10:00)
[2020-09-23] MEDS: TRIAMCINOLONE CRM 0.1%, 15GM TP SCH ×2 (10:00→20:47)
[2020-09-23] MEDS: SODIUM CHLORIDE FLUSH 10ML SYR IVF SCH ×2 (10:01→20:46)
[2020-09-23] MEDS ORDERED: OMNIPAQUE 350 MG/ML, 100ML BOTTLE ONE (11:40)
[2020-09-23 12:20] VITALS: BP 136/84
[2020-09-23] MEDS: METOCLOPRAMIDE 5 MG/ML, 2ML IVPush SCH ×2 (16:09→20:45)
[2020-09-23] MEDS: HYDROmorphone 1 MG/ML, 1ML INJ IV PRN (16:10)
[2020-09-23] MEDS ORDERED: [UNRECOGNIZED DRUG - OTHER] IV SCH (17:00)
[2020-09-23] MEDS ORDERED: DEXTROSE 70% IV SCH (17:00)
[2020-09-23] MEDS ORDERED: FAT EMUL IV SCH (17:00)
[2020-09-23] MEDS ORDERED: AMINO ACID 10% IV SCH (17:00)
[2020-09-23] MEDS ORDERED: SMOF TPN IV SCH (17:00)
[2020-09-23] MEDS: SODIUM CHLORIDE 0.9% 1,000 ML IV SCH (17:20)
[2020-09-23 19:35] VITALS: BP 146/87
[2020-09-23] MEDS: INSULIN GLARGINE 100 UNITS/ML, PEN SQ-INSULIN SCH (20:47)
[2020-09-23] MEDS: TRAZODONE 50MG TABLET PO PRN (23:04)
[2020-09-24] MEDS: PIPERACILLIN/TAZO 4.5 GM in DEXTROSE 5% 100 ML IV SCH ×3 (00:47→16:43)
[2020-09-24] MEDS: HYDROmorphone 1 MG/ML, 1ML INJ IV PRN ×3 (01:48→22:03)
[2020-09-24 02:53] VITALS: BP 117/76
[2020-09-24] MEDS: INSULIN LISPRO 100 UNITS/ML, PEN VERY HIGH DOSE SS SQ-INSULIN SCH ×4 (03:00→21:13)
[2020-09-24] MEDS: HEPARIN 5,000 UNITS/ML, 1ML SQ SCH ×2 (05:09→10:12)
[2020-09-24] MEDS: SODIUM CHLORIDE 0.9% 1,000 ML IV SCH (05:24)
[2020-09-24 05:50] LABS: ANION GAP 7 mmol/L (5-15); CALCIUM 7.9 mg/dL (8.5-10.1); CHLORIDE 110 mmol/L (98-107)
[2020-09-24 05:53] LABS: CREATININE 0.92 mg/dL (0.55-1.02)
[2020-09-24 06:03] LABS: HCT (SEDRATE) 25.6 % (34.6-47.8)
[2020-09-24] MEDS: FLUTICASONE NASAL SPRAY 16GM NAS SCH (07:30)
[2020-09-24] MEDS: LACTOBACILLUS CHEW TABLET PO SCH ×3 (07:42→21:13)
[2020-09-24] MEDS: METOCLOPRAMIDE 5 MG/ML, 2ML IVPush SCH ×4 (07:42→21:13)
[2020-09-24] MEDS: SODIUM CHLORIDE FLUSH 10ML SYR IVF SCH ×2 (07:42→21:13)
[2020-09-24] MEDS: TRIAMCINOLONE CRM 0.1%, 15GM TP SCH ×2 (07:43→21:20)
[2020-09-24 08:41] LABS: BASOPHILS % (AUTO) 1 % (0-1); EOSINOPHILS % (AUTO) 6 % (1-7); LYMPHOCYTES % (AUTO) 12 % (22-44); MEAN CORPUSCULAR HEMOGLOBIN 29.2 pg (27.0-34.8); MEAN CORPUSCULAR HGB CONC 33.6 g/dL (32.4-35.8); MEAN PLATELET VOLUME 6.9 fL (7.4-10.4); MONOCYTES % (AUTO) 7 % (2-9); NEUTROPHILS % (AUTO) 75 % (42-75); PLATELET COUNT 448 x10^3/uL (130-400); RED BLOOD COUNT 3.32 x10^6/uL (3.82-5.3); RED CELL DISTRIBUTION WIDTH 18.3 % (9.6-15.2)
[2020-09-24 08:44] VITALS: BP 129/83
[2020-09-24 08:44] LABS: MD NO
[2020-09-24 08:50] LABS: CALCIUM 8.7 mg/dL (8.5-10.1); CREATININE 1.01 mg/dL (0.55-1.02)
[2020-09-24 08:55] LABS: ANION GAP 5 mmol/L (5-15); CHLORIDE 113 mmol/L (98-107)
[2020-09-24] MEDS ORDERED: LIDOCAINE 1%, 20ML ONE (10:25)
[2020-09-24] MEDS ORDERED: LIDOCAINE 1%, 10ML ONE (10:25)
[2020-09-24] MEDS ORDERED: MIDAZOLAM 1 MG/ML, 5ML ONE ×2 (10:42)
[2020-09-24] MEDS ORDERED: FLUMAZENIL 0.1 MG/1 ML, 5ML ONE (10:42)
[2020-09-24] MEDS ORDERED: FENTANYL PF 100 MCG/2ML ONE (10:42)
[2020-09-24] MEDS ORDERED: NALOXONE 1 MG/ML, 2ML ONE (10:42)
[2020-09-24 12:55] VITALS: BP 147/91
[2020-09-24] MEDS ORDERED: LOPERAMIDE 1 MG/5 ML, 10ML UDC PO PRN (14:30)
[2020-09-24] MEDS: DIPHENOXYLATE/ATROPINE TABLET PO PRN (14:32)
[2020-09-24] MEDS ORDERED: AMINO ACID 10% IV SCH (17:00)
[2020-09-24] MEDS ORDERED: [UNRECOGNIZED DRUG - OTHER] IV SCH (17:00)
[2020-09-24] MEDS ORDERED: FAT EMUL IV SCH (17:00)
[2020-09-24] MEDS ORDERED: SMOF TPN IV SCH (17:00)
[2020-09-24] MEDS ORDERED: DEXTROSE 70% IV SCH (17:00)
[2020-09-24] MEDS ORDERED: FUROSEMIDE 20 MG/2 ML IV ONE (18:00)
[2020-09-24] MEDS: GUAIFENESIN/COD200MG-20MG/10ML LIQUID PO PRN (18:06)
[2020-09-24 18:27] VITALS: BP 131/81
[2020-09-24] MEDS: INSULIN GLARGINE 100 UNITS/ML, PEN SQ-INSULIN SCH (21:14)
[2020-09-24] MEDS: TRAZODONE 50MG TABLET PO PRN (22:02)
[2020-09-25 00:10] VITALS: BP 113/77
[2020-09-25] MEDS: PIPERACILLIN/TAZO 4.5 GM in DEXTROSE 5% 100 ML IV SCH ×3 (01:12→17:03)
[2020-09-25] MEDS: INSULIN LISPRO 100 UNITS/ML, PEN VERY HIGH DOSE SS SQ-INSULIN SCH ×4 (02:51→19:52)
[2020-09-25 04:14] LABS: BASOPHILS % (AUTO) 1 % (0-1); EOSINOPHILS % (AUTO) 7 % (1-7); LYMPHOCYTES % (AUTO) 9 % (22-44); MEAN CORPUSCULAR HEMOGLOBIN 29.9 pg (27.0-34.8); MEAN CORPUSCULAR HGB CONC 33.5 g/dL (32.4-35.8); MEAN PLATELET VOLUME 7.3 fL (7.4-10.4); MONOCYTES % (AUTO) 4 % (2-9); NEUTROPHILS % (AUTO) 79 % (42-75); PLATELET COUNT 397 x10^3/uL (130-400); RED BLOOD COUNT 3.03 x10^6/uL (3.82-5.3); RED CELL DISTRIBUTION WIDTH 18.7 % (9.6-15.2)
[2020-09-25 04:20] LABS: MD NO
[2020-09-25 05:41] LABS: CHLORIDE 110 mmol/L (98-107)
[2020-09-25 05:56] LABS: ANION GAP 7 mmol/L (5-15); CALCIUM 8.2 mg/dL (8.5-10.1)
[2020-09-25 07:15] VITALS: BP 120/76
[2020-09-25] MEDS: SODIUM CHLORIDE 0.9% 1,000 ML IV SCH (07:30)
[2020-09-25] MEDS: TRIAMCINOLONE CRM 0.1%, 15GM TP SCH ×2 (09:00→21:18)
[2020-09-25] MEDS: SODIUM CHLORIDE FLUSH 10ML SYR IVF SCH ×2 (09:00→21:18)
[2020-09-25] MEDS: LACTOBACILLUS CHEW TABLET PO SCH ×3 (09:38→21:17)
[2020-09-25] MEDS: METOCLOPRAMIDE 5 MG/ML, 2ML IVPush SCH ×4 (09:39→21:17)
[2020-09-25] MEDS: FLUTICASONE NASAL SPRAY 16GM NAS SCH (09:39)
[2020-09-25] MEDS: LOPERAMIDE 1 MG/7.5 ML LIQUID PO PRN (13:26)
[2020-09-25 14:02] VITALS: BP 117/70
[2020-09-25] MEDS ORDERED: SMOF TPN IV SCH (17:00)
[2020-09-25] MEDS ORDERED: [UNRECOGNIZED DRUG - OTHER] IV SCH (17:00)
[2020-09-25] MEDS ORDERED: FAT EMUL IV SCH (17:00)
[2020-09-25] MEDS ORDERED: AMINO ACID 10% IV SCH (17:00)
[2020-09-25] MEDS ORDERED: DEXTROSE 70% IV SCH (17:00)
[2020-09-25] MEDS: HEPARIN 5,000 UNITS/ML, 1ML SQ SCH (17:29)
[2020-09-25] MEDS: FILTER, DISP 1.2 MICRON FOR TPN/PVN IV PRN (17:29)
[2020-09-25 18:22] VITALS: BP 124/75
[2020-09-25] MEDS: INSULIN GLARGINE 100 UNITS/ML, PEN SQ-INSULIN SCH (21:17)
[2020-09-25] MEDS: DIPHENOXYLATE/ATROPINE TABLET PO PRN (21:28)
[2020-09-25] MEDS: TRAZODONE 50MG TABLET PO PRN (21:28)
[2020-09-26] MEDS: PIPERACILLIN/TAZO 4.5 GM in DEXTROSE 5% 100 ML IV SCH ×3 (00:51→17:27)
[2020-09-26 01:14] VITALS: BP 109/72
[2020-09-26] MEDS: INSULIN LISPRO 100 UNITS/ML, PEN VERY HIGH DOSE SS SQ-INSULIN SCH (03:31)
[2020-09-26] MEDS: HEPARIN 5,000 UNITS/ML, 1ML SQ SCH ×3 (03:35→19:49)
[2020-09-26 05:12] LABS: BASOPHILS % (AUTO) 0 % (0-1); EOSINOPHILS % (AUTO) 8 % (1-7); LYMPHOCYTES % (AUTO) 11 % (22-44); MEAN CORPUSCULAR HGB CONC 33.1 g/dL (32.4-35.8); MEAN PLATELET VOLUME 7.2 fL (7.4-10.4); MONOCYTES % (AUTO) 8 % (2-9); NEUTROPHILS % (AUTO) 73 % (42-75); PLATELET COUNT 413 x10^3/uL (130-400); RED BLOOD COUNT 3.19 x10^6/uL (3.82-5.3); RED CELL DISTRIBUTION WIDTH 18.7 % (9.6-15.2)
[2020-09-26 05:16] LABS: MD NO
[2020-09-26 05:23] LABS: ANION GAP 7 mmol/L (5-15); CALCIUM 7.1 mg/dL (8.5-10.1); CHLORIDE 116 mmol/L (98-107)
[2020-09-26 05:25] LABS: CREATININE 0.88 mg/dL (0.55-1.02)
[2020-09-26] MEDS: HYDROmorphone 1 MG/ML, 1ML INJ IV PRN (06:12)
[2020-09-26] MEDS: METOCLOPRAMIDE 5 MG/ML, 2ML IVPush SCH ×4 (06:13→20:37)
[2020-09-26 07:26] VITALS: BP 112/74
[2020-09-26] MEDS ORDERED: DEXTROSE 50%, 50ML SYRINGE IVPush PRN (10:00)
[2020-09-26] MEDS ORDERED: MAGNESIUM SULFATE PMX 2GM/50ML 50 ML IV ONE (10:00)
[2020-09-26] MEDS: FLUTICASONE NASAL SPRAY 16GM NAS SCH (10:37)
[2020-09-26] MEDS: TRIAMCINOLONE CRM 0.1%, 15GM TP SCH ×2 (10:37→20:38)
[2020-09-26] MEDS: SODIUM CHLORIDE 0.9% 1,000 ML IV SCH (10:38)
[2020-09-26] MEDS: LACTOBACILLUS CHEW TABLET PO SCH ×3 (10:39→20:37)
[2020-09-26] MEDS: SODIUM CHLORIDE FLUSH 10ML SYR IVF SCH ×2 (10:40→20:38)
[2020-09-26] MEDS: INSULIN LISPRO 100 UNITS/ML, PEN SQ-INSULIN SCH ×3 (10:43→20:38)
[2020-09-26 12:24] VITALS: BP 121/74
[2020-09-26 18:55] VITALS: BP 129/83
[2020-09-26] MEDS: DIPHENOXYLATE/ATROPINE TABLET PO PRN (19:49)
[2020-09-26] MEDS: FAMOTIDINE 20 MG/2 ML IVPush SCH (20:37)
[2020-09-26] MEDS: INSULIN GLARGINE 100 UNITS/ML, PEN SQ-INSULIN SCH (20:38)
[2020-09-27 01:10] VITALS: BP 127/85
[2020-09-27] MEDS: PIPERACILLIN/TAZO 4.5 GM in DEXTROSE 5% 100 ML IV SCH ×2 (01:17→08:34)
[2020-09-27] MEDS: HEPARIN 5,000 UNITS/ML, 1ML SQ SCH ×3 (03:37→20:11)
[2020-09-27] MEDS: ONDANSETRON 2MG/ML, 2ML IV PRN (03:41)
[2020-09-27 04:48] LABS: BASOPHILS % (AUTO) 1 % (0-1); EOSINOPHILS % (AUTO) 7 % (1-7); LYMPHOCYTES % (AUTO) 10 % (22-44); MEAN CORPUSCULAR HGB CONC 33.5 g/dL (32.4-35.8); MEAN PLATELET VOLUME 7.2 fL (7.4-10.4); MONOCYTES % (AUTO) 8 % (2-9); NEUTROPHILS % (AUTO) 74 % (42-75); PLATELET COUNT 360 x10^3/uL (130-400); RED BLOOD COUNT 3.15 x10^6/uL (3.82-5.3)
[2020-09-27 04:55] LABS: MD NO
[2020-09-27 05:02] LABS: ANION GAP 7 mmol/L (5-15); CHLORIDE 111 mmol/L (98-107)
[2020-09-27 05:13] LABS: CREATININE 1.07 mg/dL (0.55-1.02)
[2020-09-27 06:59] VITALS: BP 118/76
[2020-09-27] MEDS: INSULIN LISPRO 100 UNITS/ML, PEN SQ-INSULIN SCH ×4 (07:40→20:11)
[2020-09-27] MEDS: METOCLOPRAMIDE 5 MG/ML, 2ML IVPush SCH ×4 (08:33→20:10)
[2020-09-27] MEDS: FAMOTIDINE 20 MG/2 ML IVPush SCH ×2 (08:33→20:11)
[2020-09-27] MEDS: SODIUM CHLORIDE FLUSH 10ML SYR IVF SCH ×2 (08:34→20:11)
[2020-09-27] MEDS: FLUTICASONE NASAL SPRAY 16GM NAS SCH (08:34)
[2020-09-27] MEDS: LACTOBACILLUS CHEW TABLET PO SCH ×3 (08:34→20:10)
[2020-09-27] MEDS: TRIAMCINOLONE CRM 0.1%, 15GM TP SCH ×2 (08:34→20:18)
[2020-09-27] MEDS: DIPHENOXYLATE/ATROPINE TABLET PO PRN (10:11)
[2020-09-27 13:20] VITALS: BP 124/72
[2020-09-27] MEDS: CEFEPIME 2 GM in DEXTROSE 5% 100 ML IV SCH (16:37)
[2020-09-27] MEDS: SIMETHICONE 125 MG CHEW TAB PO SCH ×2 (16:58→20:10)
[2020-09-27 18:52] VITALS: BP 138/84
[2020-09-27] MEDS: INSULIN GLARGINE 100 UNITS/ML, PEN SQ-INSULIN SCH (20:12)
[2020-09-27] MEDS: LOPERAMIDE 1 MG/7.5 ML LIQUID PO PRN (20:13)
[2020-09-28 00:33] VITALS: BP 151/88
[2020-09-28] MEDS: CEFEPIME 2 GM in DEXTROSE 5% 100 ML IV SCH ×3 (00:46→17:36)
[2020-09-28] MEDS: TRAZODONE 50MG TABLET PO PRN (00:49)
[2020-09-28] MEDS: HEPARIN 5,000 UNITS/ML, 1ML SQ SCH ×3 (03:06→22:15)
[2020-09-28] MEDS: SIMETHICONE 125 MG CHEW TAB PO SCH ×4 (06:27→22:15)
[2020-09-28] MEDS: METOCLOPRAMIDE 5 MG/ML, 2ML IVPush SCH ×4 (06:27→22:14)
[2020-09-28 06:54] LABS: BASOPHILS % (AUTO) 1 % (0-1); EOSINOPHILS % (AUTO) 5 % (1-7); LYMPHOCYTES % (AUTO) 9 % (22-44); MEAN CORPUSCULAR HEMOGLOBIN 29.3 pg (27.0-34.8); MEAN CORPUSCULAR HGB CONC 33.2 g/dL (32.4-35.8); MEAN PLATELET VOLUME 7.3 fL (7.4-10.4); MONOCYTES % (AUTO) 6 % (2-9); NEUTROPHILS % (AUTO) 79 % (42-75); PLATELET COUNT 393 x10^3/uL (130-400); RED BLOOD COUNT 3.63 x10^6/uL (3.82-5.3); RED CELL DISTRIBUTION WIDTH 19.2 % (9.6-15.2)
[2020-09-28 07:00] LABS: MD NO
[2020-09-28 07:08] LABS: ANION GAP 8 mmol/L (5-15); CALCIUM 8.3 mg/dL (8.5-10.1); CHLORIDE 108 mmol/L (98-107)
[2020-09-28 07:09] LABS: CREATININE 1.18 mg/dL (0.55-1.02)
[2020-09-28 07:48] VITALS: BP 139/82
[2020-09-28] MEDS: FLUTICASONE NASAL SPRAY 16GM NAS SCH (08:20)
[2020-09-28] MEDS: FAMOTIDINE 20 MG/2 ML IVPush SCH (08:20)
[2020-09-28] MEDS: LACTOBACILLUS CHEW TABLET PO SCH ×3 (08:21→22:15)
[2020-09-28] MEDS: SODIUM CHLORIDE FLUSH 10ML SYR IVF SCH ×2 (08:22→22:13)
[2020-09-28] MEDS: INSULIN LISPRO 100 UNITS/ML, PEN SQ-INSULIN SCH ×4 (08:22→22:16)
[2020-09-28] MEDS: TRIAMCINOLONE CRM 0.1%, 15GM TP SCH ×2 (11:19→22:17)
[2020-09-28 12:52] LABS: CLOSTRIDIUM DIFFICILE ANTIGEN NEGATIVE; CLOSTRIDIUM DIFFICILE TOXIN NEGATIVE (Negative)
[2020-09-28 14:13] VITALS: BP 158/97
[2020-09-28 19:56] VITALS: BP 145/84
[2020-09-28] MEDS: FAMOTIDINE 20 MG TABLET PO SCH (22:15)
[2020-09-28] MEDS: INSULIN GLARGINE 100 UNITS/ML, PEN SQ-INSULIN SCH (22:17)
[2020-09-29 00:02] VITALS: BP 126/80
[2020-09-29] MEDS: TRAZODONE 50MG TABLET PO PRN (00:17)
[2020-09-29] MEDS: CEFEPIME 2 GM in DEXTROSE 5% 100 ML IV SCH ×3 (00:17→16:29)
[2020-09-29 05:39] LABS: HCT (SEDRATE) 29.4 % (34.6-47.8)
[2020-09-29 05:41] LABS: BASOPHILS % (AUTO) 1 % (0-1); EOSINOPHILS % (AUTO) 8 % (1-7); LYMPHOCYTES % (AUTO) 14 % (22-44); MEAN CORPUSCULAR HEMOGLOBIN 29.5 pg (27.0-34.8); MEAN CORPUSCULAR HGB CONC 33.7 g/dL (32.4-35.8); MEAN PLATELET VOLUME 7.4 fL (7.4-10.4); MONOCYTES % (AUTO) 9 % (2-9); NEUTROPHILS % (AUTO) 69 % (42-75); PLATELET COUNT 368 x10^3/uL (130-400); RED BLOOD COUNT 3.35 x10^6/uL (3.82-5.3); RED CELL DISTRIBUTION WIDTH 19.4 % (9.6-15.2)
[2020-09-29 05:44] LABS: MD NO
[2020-09-29 05:47] LABS: ALANINE AMINOTRANSFERASE 17 U/L (12-78); ANION GAP 6 mmol/L (5-15); CALCIUM 8.3 mg/dL (8.5-10.1); CHLORIDE 111 mmol/L (98-107); CREATININE 0.89 mg/dL (0.55-1.02)
[2020-09-29 05:53] LABS: ALKALINE PHOSPHATASE 981 U/L (45-117); BILIRUBIN,TOTAL 0.2 mg/dL (0.2-1.0); TOTAL PROTEIN 6.8 g/dL (6.4-8.2)
[2020-09-29 06:10] VITALS: BP 129/80
[2020-09-29] MEDS: METOCLOPRAMIDE 5 MG/ML, 2ML IVPush SCH ×4 (06:17→22:07)
[2020-09-29] MEDS: HEPARIN 5,000 UNITS/ML, 1ML SQ SCH ×3 (06:18→22:07)
[2020-09-29] MEDS: SIMETHICONE 125 MG CHEW TAB PO SCH ×4 (06:30→22:06)
[2020-09-29] MEDS: INSULIN LISPRO 100 UNITS/ML, PEN SQ-INSULIN SCH ×4 (07:00→22:08)
[2020-09-29] MEDS: FLUTICASONE NASAL SPRAY 16GM NAS SCH (08:56)
[2020-09-29] MEDS: LACTOBACILLUS CHEW TABLET PO SCH ×3 (08:56→22:06)
[2020-09-29] MEDS: FAMOTIDINE 20 MG TABLET PO SCH ×2 (08:56→22:06)
[2020-09-29] MEDS: TRIAMCINOLONE CRM 0.1%, 15GM TP SCH ×2 (08:56→22:09)
[2020-09-29] MEDS: SODIUM CHLORIDE FLUSH 10ML SYR IVF SCH ×2 (08:57→22:06)
[2020-09-29 11:28] VITALS: BP 161/90
[2020-09-29 19:11] VITALS: BP 160/86
[2020-09-29] MEDS: INSULIN GLARGINE 100 UNITS/ML, PEN SQ-INSULIN SCH (22:09)
[2020-09-30] MEDS: CEFEPIME 2 GM in DEXTROSE 5% 100 ML IV SCH ×3 (01:14→16:45)
[2020-09-30] MEDS: ONDANSETRON 2MG/ML, 2ML IV PRN (01:32)
[2020-09-30 02:00] VITALS: BP 146/82
[2020-09-30] MEDS: HEPARIN 5,000 UNITS/ML, 1ML SQ SCH ×3 (05:14→20:57)
[2020-09-30 06:00] LABS: BASOPHILS % (AUTO) 1 % (0-1); EOSINOPHILS % (AUTO) 6 % (1-7); LYMPHOCYTES % (AUTO) 12 % (22-44); MEAN CORPUSCULAR HEMOGLOBIN 29.6 pg (27.0-34.8); MEAN CORPUSCULAR HGB CONC 33.4 g/dL (32.4-35.8); MEAN PLATELET VOLUME 7.3 fL (7.4-10.4); MONOCYTES % (AUTO) 9 % (2-9); NEUTROPHILS % (AUTO) 73 % (42-75); PLATELET COUNT 330 x10^3/uL (130-400); RED BLOOD COUNT 3.22 x10^6/uL (3.82-5.3)
[2020-09-30 06:01] LABS: HCT (SEDRATE) 28.6 % (34.6-47.8)
[2020-09-30 06:05] LABS: MD NO
[2020-09-30 06:16] LABS: CHLORIDE 112 mmol/L (98-107)
[2020-09-30 06:28] LABS: ALANINE AMINOTRANSFERASE 14 U/L (12-78); ALBUMIN 1.7 g/dL (3.4-5.0); ALKALINE PHOSPHATASE 864 U/L (45-117); ANION GAP 3 mmol/L (5-15); BILIRUBIN,TOTAL 0.3 mg/dL (0.2-1.0); CALCIUM 7.9 mg/dL (8.5-10.1); CREATININE 0.79 mg/dL (0.55-1.02); GAMMA GLUTAMYL TRANSPEPTIDASE 525 U/L (5-55); TOTAL PROTEIN 6.3 g/dL (6.4-8.2)
[2020-09-30 06:39] VITALS: BP 145/85
[2020-09-30] MEDS: INSULIN LISPRO 100 UNITS/ML, PEN SQ-INSULIN SCH ×4 (07:00→20:55)
[2020-09-30] MEDS: SIMETHICONE 125 MG CHEW TAB PO SCH ×4 (08:04→20:55)
[2020-09-30] MEDS: SODIUM CHLORIDE FLUSH 10ML SYR IVF SCH ×2 (08:06→20:56)
[2020-09-30] MEDS: LACTOBACILLUS CHEW TABLET PO SCH ×3 (08:07→20:56)
[2020-09-30] MEDS: FLUTICASONE NASAL SPRAY 16GM NAS SCH (08:07)
[2020-09-30] MEDS: METOCLOPRAMIDE 5 MG/ML, 2ML IVPush SCH ×4 (08:08→20:55)
[2020-09-30] MEDS: ACETAMINOPHEN 325 MG TABLET PO PRN (08:14)
[2020-09-30] MEDS: FAMOTIDINE 20 MG TABLET PO SCH ×2 (08:30→20:56)
[2020-09-30] MEDS: TRIAMCINOLONE CRM 0.1%, 15GM TP SCH ×2 (08:30→20:57)
[2020-09-30 14:24] VITALS: BP 143/83
[2020-09-30] MEDS ORDERED: SINCALIDE (KINEVAC) 5 MCG ONE (14:48)
[2020-09-30] MEDS ORDERED: SINCALIDE (KINEVAC) 5 MCG IV ONE (15:30)
[2020-09-30 20:01] VITALS: BP 137/78
[2020-09-30] MEDS: INSULIN GLARGINE 100 UNITS/ML, PEN SQ-INSULIN SCH (20:54)
[2020-09-30] MEDS: TRAZODONE 50MG TABLET PO PRN (21:04)
[2020-10-01] MEDS: CEFEPIME 2 GM in DEXTROSE 5% 100 ML IV SCH ×3 (00:22→16:39)
[2020-10-01 02:45] VITALS: BP 146/85
[2020-10-01] MEDS: HEPARIN 5,000 UNITS/ML, 1ML SQ SCH ×3 (04:10→20:46)
[2020-10-01 06:08] LABS: BASOPHILS % (AUTO) 0 % (0-1); EOSINOPHILS % (AUTO) 5 % (1-7); LYMPHOCYTES % (AUTO) 9 % (22-44); MEAN CORPUSCULAR HEMOGLOBIN 28.7 pg (27.0-34.8); MEAN CORPUSCULAR HGB CONC 32.9 g/dL (32.4-35.8); MEAN PLATELET VOLUME 7.5 fL (7.4-10.4); MONOCYTES % (AUTO) 9 % (2-9); NEUTROPHILS % (AUTO) 77 % (42-75); PLATELET COUNT 336 x10^3/uL (130-400); RED BLOOD COUNT 3.46 x10^6/uL (3.82-5.3); RED CELL DISTRIBUTION WIDTH 19.7 % (9.6-15.2)
[2020-10-01 06:09] LABS: MD NO
[2020-10-01 06:11] LABS: ALANINE AMINOTRANSFERASE 10 U/L (12-78); ALBUMIN 1.9 g/dL (3.4-5.0); ANION GAP 6 mmol/L (5-15); CALCIUM 8.3 mg/dL (8.5-10.1); CHLORIDE 109 mmol/L (98-107)
[2020-10-01 06:13] LABS: ALKALINE PHOSPHATASE 808 U/L (45-117); BILIRUBIN,TOTAL 0.4 mg/dL (0.2-1.0); TOTAL PROTEIN 6.6 g/dL (6.4-8.2)
[2020-10-01] MEDS: INSULIN LISPRO 100 UNITS/ML, PEN SQ-INSULIN SCH ×4 (07:00→20:31)
[2020-10-01 07:32] VITALS: BP 128/80
[2020-10-01] MEDS: METOCLOPRAMIDE 5 MG/ML, 2ML IVPush SCH ×4 (07:56→20:46)
[2020-10-01] MEDS: TRIAMCINOLONE CRM 0.1%, 15GM TP SCH ×2 (07:56→20:31)
[2020-10-01] MEDS: SODIUM CHLORIDE FLUSH 10ML SYR IVF SCH ×2 (07:57→20:29)
[2020-10-01] MEDS: SIMETHICONE 125 MG CHEW TAB PO SCH ×4 (07:57→20:46)
[2020-10-01] MEDS: LACTOBACILLUS CHEW TABLET PO SCH ×3 (07:57→20:46)
[2020-10-01] MEDS: FAMOTIDINE 20 MG TABLET PO SCH ×2 (07:57→20:46)
[2020-10-01] MEDS: FLUTICASONE NASAL SPRAY 16GM NAS SCH (08:41)
[2020-10-01] MEDS: ACETAMINOPHEN 325 MG TABLET PO PRN (11:37)
[2020-10-01 12:42] VITALS: BP 130/85
[2020-10-01 19:17] VITALS: BP 137/83
[2020-10-01] MEDS: INSULIN GLARGINE 100 UNITS/ML, PEN SQ-INSULIN SCH (20:30)
[2020-10-01] MEDS: TRAZODONE 50MG TABLET PO PRN (21:27)
[2020-10-02] MEDS: CEFEPIME 2 GM in DEXTROSE 5% 100 ML IV SCH ×4 (00:05→23:24)
[2020-10-02 00:15] VITALS: BP 128/83
[2020-10-02 04:31] LABS: BASOPHILS % (AUTO) 0 % (0-1); EOSINOPHILS % (AUTO) 5 % (1-7); LYMPHOCYTES % (AUTO) 10 % (22-44); MEAN CORPUSCULAR HEMOGLOBIN 29.1 pg (27.0-34.8); MEAN CORPUSCULAR HGB CONC 33.1 g/dL (32.4-35.8); MEAN PLATELET VOLUME 7.8 fL (7.4-10.4); MONOCYTES % (AUTO) 9 % (2-9); NEUTROPHILS % (AUTO) 75 % (42-75); PLATELET COUNT 299 x10^3/uL (130-400); RED BLOOD COUNT 3.44 x10^6/uL (3.82-5.3); RED CELL DISTRIBUTION WIDTH 19.7 % (9.6-15.2)
[2020-10-02 04:33] LABS: MD NO
[2020-10-02] MEDS: HEPARIN 5,000 UNITS/ML, 1ML SQ SCH ×3 (05:05→20:21)
[2020-10-02 08:01] VITALS: BP 166/102
[2020-10-02] MEDS: INSULIN LISPRO 100 UNITS/ML, PEN SQ-INSULIN SCH ×4 (08:01→20:22)
[2020-10-02] MEDS: METOCLOPRAMIDE 5 MG/ML, 2ML IVPush SCH ×4 (09:17→20:22)
[2020-10-02] MEDS: SODIUM CHLORIDE FLUSH 10ML SYR IVF SCH ×2 (09:18→20:20)
[2020-10-02] MEDS: GUAIFENESIN/COD200MG-20MG/10ML LIQUID PO PRN (09:19)
[2020-10-02] MEDS: TRIAMCINOLONE CRM 0.1%, 15GM TP SCH ×2 (09:19→20:22)
[2020-10-02] MEDS: FLUTICASONE NASAL SPRAY 16GM NAS SCH (09:19)
[2020-10-02] MEDS: LACTOBACILLUS CHEW TABLET PO SCH ×3 (09:20→20:21)
[2020-10-02] MEDS: FAMOTIDINE 20 MG TABLET PO SCH ×2 (09:20→20:21)
[2020-10-02] MEDS: SIMETHICONE 125 MG CHEW TAB PO SCH ×4 (09:20→20:21)
[2020-10-02] MEDS: LOPERAMIDE 2 MG CAPSULE PO PRN (12:52)
[2020-10-02 15:22] VITALS: BP 144/84
[2020-10-02 19:19] VITALS: BP 127/78
[2020-10-02] MEDS: INSULIN GLARGINE 100 UNITS/ML, PEN SQ-INSULIN SCH (20:21)
[2020-10-03 00:26] VITALS: BP 145/88
[2020-10-03] MEDS: ACETAMINOPHEN 325 MG TABLET PO PRN (04:06)
[2020-10-03] MEDS: HEPARIN 5,000 UNITS/ML, 1ML SQ SCH ×3 (04:49→20:18)
[2020-10-03] MEDS: INSULIN LISPRO 100 UNITS/ML, PEN SQ-INSULIN SCH ×4 (07:00→20:21)
[2020-10-03 07:52] VITALS: BP 143/86
[2020-10-03] MEDS: SIMETHICONE 125 MG CHEW TAB PO SCH ×4 (08:14→20:23)
[2020-10-03] MEDS: FAMOTIDINE 20 MG TABLET PO SCH ×2 (08:15→20:18)
[2020-10-03] MEDS: METOCLOPRAMIDE 5 MG/ML, 2ML IVPush SCH ×4 (08:15→20:19)
[2020-10-03] MEDS: LACTOBACILLUS CHEW TABLET PO SCH ×3 (08:15→20:18)
[2020-10-03] MEDS: FLUTICASONE NASAL SPRAY 16GM NAS SCH (08:16)
[2020-10-03] MEDS: TRIAMCINOLONE CRM 0.1%, 15GM TP SCH ×2 (08:16→20:18)
[2020-10-03] MEDS: CEFEPIME 2 GM in DEXTROSE 5% 100 ML IV SCH ×3 (08:16→23:13)
[2020-10-03] MEDS: SODIUM CHLORIDE FLUSH 10ML SYR IVF SCH ×2 (08:18→20:19)
[2020-10-03] MEDS: LOPERAMIDE 2 MG CAPSULE PO PRN ×2 (08:42→11:36)
[2020-10-03 15:09] VITALS: BP 162/98
[2020-10-03 19:16] VITALS: BP 108/63
[2020-10-03] MEDS: INSULIN GLARGINE 100 UNITS/ML, PEN SQ-INSULIN SCH (20:20)
[2020-10-04 00:44] VITALS: BP 136/85
[2020-10-04] MEDS: ACETAMINOPHEN 325 MG TABLET PO PRN (05:24)
[2020-10-04] MEDS: HEPARIN 5,000 UNITS/ML, 1ML SQ SCH ×3 (05:25→20:21)
[2020-10-04] MEDS: INSULIN LISPRO 100 UNITS/ML, PEN SQ-INSULIN SCH ×4 (07:00→20:23)
[2020-10-04 07:30] VITALS: BP 160/95
[2020-10-04] MEDS: FLUTICASONE NASAL SPRAY 16GM NAS SCH (08:33)
[2020-10-04] MEDS: FAMOTIDINE 20 MG TABLET PO SCH ×2 (08:33→20:23)
[2020-10-04] MEDS: METOCLOPRAMIDE 5 MG/ML, 2ML IVPush SCH ×2 (08:33→11:25)
[2020-10-04] MEDS: TRIAMCINOLONE CRM 0.1%, 15GM TP SCH ×2 (08:33→20:23)
[2020-10-04] MEDS: SIMETHICONE 125 MG CHEW TAB PO SCH ×4 (08:33→20:23)
[2020-10-04] MEDS: LACTOBACILLUS CHEW TABLET PO SCH (08:33)
[2020-10-04] MEDS: CEFEPIME 2 GM in DEXTROSE 5% 100 ML IV SCH (08:33)
[2020-10-04] MEDS: SODIUM CHLORIDE FLUSH 10ML SYR IVF SCH ×2 (08:34→20:23)
[2020-10-04] MEDS: LOPERAMIDE 2 MG CAPSULE PO PRN (09:02)
[2020-10-04] MEDS: PIPERACILLIN/TAZO 3.375 GM in DEXTROSE 5% 50 ML IV SCH ×3 (09:42→21:59)
[2020-10-04 13:59] VITALS: BP 131/85
[2020-10-04 19:24] VITALS: BP 112/74
[2020-10-04] MEDS: INSULIN GLARGINE 100 UNITS/ML, PEN SQ-INSULIN SCH (20:22)
[2020-10-05 00:38] VITALS: BP 116/79
[2020-10-05] MEDS: ACETAMINOPHEN 325 MG TABLET PO PRN (02:40)
[2020-10-05] MEDS: PIPERACILLIN/TAZO 3.375 GM in DEXTROSE 5% 50 ML IV SCH ×4 (04:56→21:24)
[2020-10-05] MEDS: HEPARIN 5,000 UNITS/ML, 1ML SQ SCH ×3 (04:56→21:04)
[2020-10-05 06:07] LABS: BASOPHILS % (AUTO) 1 % (0-1); EOSINOPHILS % (AUTO) 7 % (1-7); LYMPHOCYTES % (AUTO) 6 % (22-44); MEAN CORPUSCULAR HEMOGLOBIN 29.4 pg (27.0-34.8); MEAN CORPUSCULAR HGB CONC 33.7 g/dL (32.4-35.8); MEAN PLATELET VOLUME 7.4 fL (7.4-10.4); MONOCYTES % (AUTO) 6 % (2-9); NEUTROPHILS % (AUTO) 80 % (42-75); PLATELET COUNT 267 x10^3/uL (130-400); RED CELL DISTRIBUTION WIDTH 19.6 % (9.6-15.2)
[2020-10-05 06:08] LABS: ANION GAP 5 mmol/L (5-15); CALCIUM 8.2 mg/dL (8.5-10.1); CHLORIDE 108 mmol/L (98-107)
[2020-10-05 06:11] LABS: CREATININE 1.03 mg/dL (0.55-1.02)
[2020-10-05 06:33] VITALS: BP 123/78
[2020-10-05 06:35] LABS: MD SCAN
[2020-10-05] MEDS: INSULIN LISPRO 100 UNITS/ML, PEN SQ-INSULIN SCH ×4 (07:00→21:02)
[2020-10-05] MEDS: SIMETHICONE 125 MG CHEW TAB PO SCH ×4 (08:39→21:01)
[2020-10-05] MEDS: TRIAMCINOLONE CRM 0.1%, 15GM TP SCH ×2 (08:40→21:01)
[2020-10-05] MEDS: FAMOTIDINE 20 MG TABLET PO SCH ×2 (08:40→21:01)
[2020-10-05] MEDS: SODIUM CHLORIDE FLUSH 10ML SYR IVF SCH ×2 (08:41→21:01)
[2020-10-05] MEDS: ONDANSETRON 2MG/ML, 2ML IV PRN (08:41)
[2020-10-05] MEDS: FLUTICASONE NASAL SPRAY 16GM NAS SCH (08:41)
[2020-10-05] MEDS: CHOLESTYRAMINE LIGHT 4GM PACKET PO SCH ×2 (10:39→21:01)
[2020-10-05] MEDS ORDERED: METOCLOPRAMIDE 5 MG/ML, 2ML ONE (11:06)
[2020-10-05] MEDS ORDERED: METOCLOPRAMIDE 5 MG/ML, 2ML IVPush ONE (12:00)
[2020-10-05] MEDS: PYRIDOXINE (Vitamin B6) 50MG TAB PO SCH (12:45)
[2020-10-05 13:37] VITALS: BP 112/84
[2020-10-05] MEDS: INSULIN GLARGINE 100 UNITS/ML, PEN SQ-INSULIN SCH (21:03)
[2020-10-05 21:09] VITALS: BP 145/86
[2020-10-05] MEDS: DOXYLAMINE 25MG TABLET PO SCH (21:24)
[2020-10-06 00:42] VITALS: BP 132/86
[2020-10-06 00:48] VITALS: BP 101/64
[2020-10-06 00:50] VITALS: BP 132/86
[2020-10-06] MEDS: HEPARIN 5,000 UNITS/ML, 1ML SQ SCH ×3 (03:09→20:30)
[2020-10-06] MEDS: PIPERACILLIN/TAZO 3.375 GM in DEXTROSE 5% 50 ML IV SCH ×4 (03:17→21:52)
[2020-10-06 07:39] VITALS: BP 146/86
[2020-10-06] MEDS: INSULIN LISPRO 100 UNITS/ML, PEN SQ-INSULIN SCH ×4 (07:50→20:31)
[2020-10-06] MEDS ORDERED: CHLORHEXIDINE 15 ML UDC ONE (08:26)
[2020-10-06] MEDS: SIMETHICONE 125 MG CHEW TAB PO SCH ×4 (09:03→20:32)
[2020-10-06] MEDS: FAMOTIDINE 20 MG TABLET PO SCH ×2 (09:03→20:32)
[2020-10-06] MEDS: PYRIDOXINE (Vitamin B6) 50MG TAB PO SCH (09:03)
[2020-10-06] MEDS: SODIUM CHLORIDE FLUSH 10ML SYR IVF SCH ×2 (09:03→20:30)
[2020-10-06] MEDS: TRIAMCINOLONE CRM 0.1%, 15GM TP SCH ×2 (09:04→20:31)
[2020-10-06] MEDS: FLUTICASONE NASAL SPRAY 16GM NAS SCH (09:04)
[2020-10-06] MEDS: CHOLESTYRAMINE LIGHT 4GM PACKET PO SCH ×2 (09:04→20:32)
[2020-10-06] MEDS ORDERED: ACETAMINOPHEN 325 MG TABLET PO PRN (12:30)
[2020-10-06] MEDS ORDERED: MEPERIDINE/PF 25MG/0.5ML IVPush PRN (12:30)
[2020-10-06] MEDS ORDERED: OXYcodone 5 MG/5 ML ORAL.SOL UDC PO PRN (12:30)
[2020-10-06] MEDS ORDERED: LABETALOL 5MG/ML, 20ML IV PRN (12:30)
[2020-10-06] MEDS ORDERED: FENTANYL PF 100 MCG/2ML IV PRN (12:30)
[2020-10-06] MEDS ORDERED: ALBUTEROL SULFATE 2.5 MG/3 ML NPPB PRN (12:30)
[2020-10-06] MEDS ORDERED: PROMETHAZINE 25 MG/ML, 1ML IVPush PRN (12:30)
[2020-10-06] MEDS ORDERED: PROPOFOL 10 MG/ML, 20ML ONE (12:39)
[2020-10-06 13:30] VITALS: BP 152/92
[2020-10-06] MEDS: ONDANSETRON ODT 4 MG PO PRN (13:49)
[2020-10-06] MEDS: KETOROLAC 30 MG/1 ML IVPush SCH ×2 (18:06→22:53)
[2020-10-06 19:55] VITALS: BP 138/84
[2020-10-06] MEDS: INSULIN GLARGINE 100 UNITS/ML, PEN SQ-INSULIN SCH (20:30)
[2020-10-06] MEDS: DOXYLAMINE 25MG TABLET PO SCH (20:31)
[2020-10-07 01:03] VITALS: BP 145/84
[2020-10-07] MEDS: PIPERACILLIN/TAZO 3.375 GM in DEXTROSE 5% 50 ML IV SCH ×4 (03:46→21:55)
[2020-10-07] MEDS: HEPARIN 5,000 UNITS/ML, 1ML SQ SCH ×3 (05:37→20:30)
[2020-10-07] MEDS: KETOROLAC 30 MG/1 ML IVPush SCH (05:37)
[2020-10-07 06:21] LABS: BASOPHILS % (AUTO) 1 % (0-1); EOSINOPHILS % (AUTO) 11 % (1-7); LYMPHOCYTES % (AUTO) 13 % (22-44); MEAN CORPUSCULAR HGB CONC 33.8 g/dL (32.4-35.8); MEAN PLATELET VOLUME 7.5 fL (7.4-10.4); MONOCYTES % (AUTO) 9 % (2-9); NEUTROPHILS % (AUTO) 67 % (42-75); PLATELET COUNT 270 x10^3/uL (130-400); RED BLOOD COUNT 3.53 x10^6/uL (3.82-5.3); RED CELL DISTRIBUTION WIDTH 20.2 % (9.6-15.2)
[2020-10-07 06:22] LABS: MD NO
[2020-10-07 06:27] LABS: HCT (SEDRATE) 31.3 % (34.6-47.8)
[2020-10-07 06:32] LABS: ALANINE AMINOTRANSFERASE 17 U/L (12-78); ALBUMIN 1.8 g/dL (3.4-5.0); ANION GAP 5 mmol/L (5-15); CHLORIDE 111 mmol/L (98-107); CREATININE 1.12 mg/dL (0.55-1.02)
[2020-10-07 06:39] LABS: ALKALINE PHOSPHATASE 799 U/L (45-117); BILIRUBIN,TOTAL 0.2 mg/dL (0.2-1.0); TOTAL PROTEIN 6.2 g/dL (6.4-8.2)
[2020-10-07] MEDS: INSULIN LISPRO 100 UNITS/ML, PEN SQ-INSULIN SCH ×4 (07:25→20:32)
[2020-10-07] MEDS: SIMETHICONE 125 MG CHEW TAB PO SCH ×4 (08:26→20:33)
[2020-10-07] MEDS: FAMOTIDINE 20 MG TABLET PO SCH ×2 (09:24→20:33)
[2020-10-07] MEDS: PYRIDOXINE (Vitamin B6) 50MG TAB PO SCH (09:24)
[2020-10-07] MEDS: CHOLESTYRAMINE LIGHT 4GM PACKET PO SCH ×2 (09:24→20:32)
[2020-10-07] MEDS: SODIUM CHLORIDE FLUSH 10ML SYR IVF SCH ×2 (09:24→20:30)
[2020-10-07] MEDS: TRIAMCINOLONE CRM 0.1%, 15GM TP SCH ×2 (09:25→20:31)
[2020-10-07] MEDS: FLUTICASONE NASAL SPRAY 16GM NAS SCH (09:26)
[2020-10-07 10:00] VITALS: BP 159/92
[2020-10-07] MEDS ORDERED: CATHFLO-ALTEPLASE 2 MG/2 ML CATHFLUSH ONE (13:00)
[2020-10-07 14:37] VITALS: BP 159/91
[2020-10-07 18:35] VITALS: BP 151/86
[2020-10-07] MEDS: INSULIN GLARGINE 100 UNITS/ML, PEN SQ-INSULIN SCH (20:31)
[2020-10-07] MEDS: DOXYLAMINE 25MG TABLET PO SCH (20:33)
[2020-10-08 00:23] VITALS: BP 154/88
[2020-10-08] MEDS: PIPERACILLIN/TAZO 3.375 GM in DEXTROSE 5% 50 ML IV SCH ×4 (04:53→21:29)
[2020-10-08] MEDS: HEPARIN 5,000 UNITS/ML, 1ML SQ SCH ×3 (04:53→20:42)
[2020-10-08] MEDS: INSULIN LISPRO 100 UNITS/ML, PEN SQ-INSULIN SCH ×4 (07:00→20:22)
[2020-10-08 07:54] VITALS: BP 152/90
[2020-10-08] MEDS: PYRIDOXINE (Vitamin B6) 50MG TAB PO SCH (08:33)
[2020-10-08] MEDS: SIMETHICONE 125 MG CHEW TAB PO SCH ×4 (08:33→20:41)
[2020-10-08] MEDS: FAMOTIDINE 20 MG TABLET PO SCH ×2 (08:33→20:41)
[2020-10-08] MEDS: CHOLESTYRAMINE LIGHT 4GM PACKET PO SCH ×2 (08:34→20:41)
[2020-10-08] MEDS: ACETAMINOPHEN 325 MG TABLET PO PRN (08:39)
[2020-10-08] MEDS: SODIUM CHLORIDE FLUSH 10ML SYR IVF SCH ×2 (08:40→20:22)
[2020-10-08] MEDS: TRIAMCINOLONE CRM 0.1%, 15GM TP SCH ×2 (09:00→20:21)
[2020-10-08] MEDS: FLUTICASONE NASAL SPRAY 16GM NAS SCH (09:00)
[2020-10-08] MEDS: KETOROLAC 30 MG/1 ML IVPush PRN (10:52)
[2020-10-08 15:10] VITALS: BP 179/111
[2020-10-08 15:13] VITALS: BP 181/75
[2020-10-08] MEDS: FUROSEMIDE 20 MG/2 ML IV SCH (16:14)
[2020-10-08 19:32] VITALS: BP 163/97
[2020-10-08] MEDS: INSULIN GLARGINE 100 UNITS/ML, PEN SQ-INSULIN SCH (20:21)
[2020-10-08] MEDS: DOXYLAMINE 25MG TABLET PO SCH (20:41)
[2020-10-09 00:53] VITALS: BP 152/88
[2020-10-09] MEDS: PIPERACILLIN/TAZO 3.375 GM in DEXTROSE 5% 50 ML IV SCH ×4 (04:01→21:24)
[2020-10-09] MEDS: HEPARIN 5,000 UNITS/ML, 1ML SQ SCH ×3 (04:04→20:26)
[2020-10-09] MEDS: KETOROLAC 30 MG/1 ML IVPush PRN ×3 (05:17→23:21)
[2020-10-09 06:48] VITALS: BP 153/94
[2020-10-09] MEDS: INSULIN LISPRO 100 UNITS/ML, PEN SQ-INSULIN SCH ×4 (07:00→20:28)
[2020-10-09] MEDS: FAMOTIDINE 20 MG TABLET PO SCH ×2 (08:43→20:28)
[2020-10-09] MEDS: PYRIDOXINE (Vitamin B6) 50MG TAB PO SCH (08:43)
[2020-10-09] MEDS: SIMETHICONE 125 MG CHEW TAB PO SCH ×4 (08:43→20:28)
[2020-10-09] MEDS: ACETAMINOPHEN 325 MG TABLET PO PRN (08:43)
[2020-10-09] MEDS: SODIUM CHLORIDE FLUSH 10ML SYR IVF SCH ×2 (08:43→20:26)
[2020-10-09] MEDS: FUROSEMIDE 20 MG/2 ML IV SCH ×2 (08:43→16:42)
[2020-10-09] MEDS: TRIAMCINOLONE CRM 0.1%, 15GM TP SCH ×2 (08:44→20:27)
[2020-10-09] MEDS: CHOLESTYRAMINE LIGHT 4GM PACKET PO SCH ×2 (08:44→20:28)
[2020-10-09] MEDS: FLUTICASONE NASAL SPRAY 16GM NAS SCH (09:00)
[2020-10-09 12:43] VITALS: BP 176/106
[2020-10-09 15:33] VITALS: BP 153/83
[2020-10-09 19:03] VITALS: BP 146/85
[2020-10-09] MEDS: INSULIN GLARGINE 100 UNITS/ML, PEN SQ-INSULIN SCH (20:27)
[2020-10-09] MEDS: DOXYLAMINE 25MG TABLET PO SCH (20:28)
[2020-10-10 01:09] VITALS: BP 157/93
[2020-10-10] MEDS: HEPARIN 5,000 UNITS/ML, 1ML SQ SCH ×3 (04:11→20:43)
[2020-10-10] MEDS: PIPERACILLIN/TAZO 3.375 GM in DEXTROSE 5% 50 ML IV SCH ×4 (04:12→22:51)
[2020-10-10] MEDS: ACETAMINOPHEN 325 MG TABLET PO PRN ×3 (04:26→13:46)
[2020-10-10] MEDS: KETOROLAC 30 MG/1 ML IVPush PRN (05:48)
[2020-10-10 06:47] LABS: ANION GAP 7 mmol/L (5-15); CHLORIDE 109 mmol/L (98-107); CREATININE 1.13 mg/dL (0.55-1.02)
[2020-10-10 08:00] VITALS: BP 168/101
[2020-10-10] MEDS: INSULIN LISPRO 100 UNITS/ML, PEN SQ-INSULIN SCH ×4 (08:23→20:42)
[2020-10-10] MEDS: SIMETHICONE 125 MG CHEW TAB PO SCH ×4 (08:25→20:43)
[2020-10-10] MEDS: FAMOTIDINE 20 MG TABLET PO SCH ×2 (08:25→20:43)
[2020-10-10] MEDS: FUROSEMIDE 20 MG/2 ML IV SCH ×2 (08:25→17:27)
[2020-10-10] MEDS: CHOLESTYRAMINE LIGHT 4GM PACKET PO SCH ×2 (08:27→20:43)
[2020-10-10] MEDS: SODIUM CHLORIDE FLUSH 10ML SYR IVF SCH ×2 (08:28→20:40)
[2020-10-10] MEDS: PYRIDOXINE (Vitamin B6) 50MG TAB PO SCH (08:29)
[2020-10-10] MEDS: FLUTICASONE NASAL SPRAY 16GM NAS SCH (08:29)
[2020-10-10] MEDS: TRIAMCINOLONE CRM 0.1%, 15GM TP SCH ×2 (08:30→20:41)
[2020-10-10] MEDS ORDERED: MORPHINE SULFATE 4 MG/ML, 1ML IVPush PRN (13:00)
[2020-10-10 13:38] VITALS: BP 165/94
[2020-10-10] MEDS ORDERED: OMNIPAQUE 350 MG/ML, 100ML BOTTLE ONE (19:38)
[2020-10-10 20:04] VITALS: BP 176/92
[2020-10-10 20:34] VITALS: BP 178/88
[2020-10-10] MEDS: INSULIN GLARGINE 100 UNITS/ML, PEN SQ-INSULIN SCH (20:41)
[2020-10-10] MEDS: DOXYLAMINE 25MG TABLET PO SCH (20:43)
[2020-10-11 01:15] VITALS: BP 140/80
[2020-10-11 03:55] LABS: BASOPHILS % (AUTO) 1 % (0-1); EOSINOPHILS % (AUTO) 10 % (1-7); LYMPHOCYTES % (AUTO) 14 % (22-44); MEAN CORPUSCULAR HEMOGLOBIN 29.9 pg (27.0-34.8); MEAN CORPUSCULAR HGB CONC 34.1 g/dL (32.4-35.8); MEAN PLATELET VOLUME 6.8 fL (7.4-10.4); MONOCYTES % (AUTO) 8 % (2-9); NEUTROPHILS % (AUTO) 67 % (42-75); PLATELET COUNT 344 x10^3/uL (130-400); RED BLOOD COUNT 3.63 x10^6/uL (3.82-5.3)
[2020-10-11 03:58] LABS: MD NO
[2020-10-11 04:07] LABS: ALANINE AMINOTRANSFERASE 19 U/L (12-78); ALBUMIN 1.8 g/dL (3.4-5.0); ANION GAP 10 mmol/L (5-15); CALCIUM 8.1 mg/dL (8.5-10.1); CHLORIDE 108 mmol/L (98-107); CREATININE 0.91 mg/dL (0.55-1.02)
[2020-10-11 04:09] LABS: ALKALINE PHOSPHATASE 771 U/L (45-117); BILIRUBIN,TOTAL 0.3 mg/dL (0.2-1.0); TOTAL PROTEIN 6.1 g/dL (6.4-8.2)
[2020-10-11] MEDS: PIPERACILLIN/TAZO 3.375 GM in DEXTROSE 5% 50 ML IV SCH ×4 (04:30→22:01)
[2020-10-11] MEDS: HEPARIN 5,000 UNITS/ML, 1ML SQ SCH ×3 (04:30→20:34)
[2020-10-11] MEDS: INSULIN LISPRO 100 UNITS/ML, PEN SQ-INSULIN SCH ×4 (07:00→20:32)
[2020-10-11 07:40] VITALS: BP 126/79
[2020-10-11] MEDS: PYRIDOXINE (Vitamin B6) 50MG TAB PO SCH (08:44)
[2020-10-11] MEDS: SIMETHICONE 125 MG CHEW TAB PO SCH ×4 (08:44→20:34)
[2020-10-11] MEDS: TRIAMCINOLONE CRM 0.1%, 15GM TP SCH ×2 (08:45→20:31)
[2020-10-11] MEDS: CHOLESTYRAMINE LIGHT 4GM PACKET PO SCH ×2 (08:45→20:34)
[2020-10-11] MEDS: FLUTICASONE NASAL SPRAY 16GM NAS SCH (08:45)
[2020-10-11] MEDS: FAMOTIDINE 20 MG TABLET PO SCH ×2 (08:45→20:34)
[2020-10-11] MEDS: FUROSEMIDE 20 MG/2 ML IV SCH ×2 (08:46→17:20)
[2020-10-11] MEDS: SODIUM CHLORIDE FLUSH 10ML SYR IVF SCH ×2 (08:46→20:31)
[2020-10-11] MEDS: ACETAMINOPHEN 325 MG TABLET PO PRN ×2 (08:50→23:48)
[2020-10-11 14:20] VITALS: BP 136/84
[2020-10-11 19:20] VITALS: BP 138/84
[2020-10-11] MEDS: INSULIN GLARGINE 100 UNITS/ML, PEN SQ-INSULIN SCH (20:32)
[2020-10-11] MEDS: DOXYLAMINE 25MG TABLET PO SCH (20:33)
[2020-10-11] MEDS: TRAZODONE 50MG TABLET PO PRN (20:34)
[2020-10-11] MEDS: METHOCARBAMOL 750 MG TABLET PO PRN (20:45)
[2020-10-11 22:28] LABS: MICROSCOPIC INDICATED
[2020-10-11] MEDS: ONDANSETRON ODT 4 MG PO PRN (23:48)
[2020-10-12 02:30] VITALS: BP 140/84
[2020-10-12] MEDS: HEPARIN 5,000 UNITS/ML, 1ML SQ SCH ×3 (04:04→21:27)
[2020-10-12] MEDS: PIPERACILLIN/TAZO 3.375 GM in DEXTROSE 5% 50 ML IV SCH ×4 (04:04→21:34)
[2020-10-12] MEDS: ACETAMINOPHEN 325 MG TABLET PO PRN (05:12)
[2020-10-12] MEDS: INSULIN LISPRO 100 UNITS/ML, PEN SQ-INSULIN SCH ×4 (07:00→21:25)
[2020-10-12] MEDS: SIMETHICONE 125 MG CHEW TAB PO SCH ×4 (07:00→21:27)
[2020-10-12] MEDS: KETOROLAC 30 MG/1 ML IVPush SCH ×3 (08:05→21:27)
[2020-10-12 09:22] VITALS: BP 172/108
[2020-10-12] MEDS: morphine SULFATE 10 MG/ML, 1ML IVPush PRN (11:07)
[2020-10-12 11:20] VITALS: BP 159/92
[2020-10-12] MEDS: FUROSEMIDE 20 MG/2 ML IV SCH ×2 (11:23→18:51)
[2020-10-12] MEDS: TRIAMCINOLONE CRM 0.1%, 15GM TP SCH ×2 (11:24→21:26)
[2020-10-12] MEDS: FAMOTIDINE 20 MG TABLET PO SCH ×2 (11:24→21:28)
[2020-10-12] MEDS: FLUTICASONE NASAL SPRAY 16GM NAS SCH (11:24)
[2020-10-12] MEDS: SODIUM CHLORIDE FLUSH 10ML SYR IVF SCH ×2 (11:24→21:27)
[2020-10-12] MEDS: PYRIDOXINE (Vitamin B6) 50MG TAB PO SCH (11:26)
[2020-10-12] MEDS: CHOLESTYRAMINE LIGHT 4GM PACKET PO SCH ×2 (11:27→21:27)
[2020-10-12 14:10] VITALS: BP 158/88
[2020-10-12] MEDS: DEXAMETHASONE 4 MG/ML, 1ML IVPush SCH ×2 (15:57→21:27)
[2020-10-12 20:22] VITALS: BP 138/71
[2020-10-12] MEDS: DOXYLAMINE 25MG TABLET PO SCH (21:26)
[2020-10-12] MEDS: INSULIN GLARGINE 100 UNITS/ML, PEN SQ-INSULIN SCH (21:26)
[2020-10-12] MEDS: URSODIOL 300 MG CAPSULE PO SCH (21:28)
[2020-10-13 00:26] VITALS: BP 158/97
[2020-10-13] MEDS: KETOROLAC 30 MG/1 ML IVPush SCH ×2 (02:39→08:19)
[2020-10-13] MEDS: DEXAMETHASONE 4 MG/ML, 1ML IVPush SCH ×4 (03:41→20:49)
[2020-10-13] MEDS: PIPERACILLIN/TAZO 3.375 GM in DEXTROSE 5% 50 ML IV SCH ×4 (03:41→21:26)
[2020-10-13] MEDS: HEPARIN 5,000 UNITS/ML, 1ML SQ SCH ×3 (05:07→20:49)
[2020-10-13 05:31] LABS: ALBUMIN 2.1 g/dL (3.4-5.0); ANION GAP 8 mmol/L (5-15); CALCIUM 8.6 mg/dL (8.5-10.1); CHLORIDE 102 mmol/L (98-107)
[2020-10-13 05:37] LABS: ALANINE AMINOTRANSFERASE 15 U/L (12-78); ALKALINE PHOSPHATASE 694 U/L (45-117); BILIRUBIN,TOTAL 0.3 mg/dL (0.2-1.0); CREATININE 1.27 mg/dL (0.55-1.02); TOTAL PROTEIN 6.6 g/dL (6.4-8.2)
[2020-10-13 07:10] VITALS: BP 171/98
[2020-10-13] MEDS: FAMOTIDINE 20 MG TABLET PO SCH ×2 (08:18→20:49)
[2020-10-13] MEDS: URSODIOL 300 MG CAPSULE PO SCH ×2 (08:18→20:49)
[2020-10-13] MEDS: SIMETHICONE 125 MG CHEW TAB PO SCH ×4 (08:18→20:49)
[2020-10-13] MEDS: PYRIDOXINE (Vitamin B6) 50MG TAB PO SCH (08:19)
[2020-10-13] MEDS: FUROSEMIDE 20 MG/2 ML IV SCH ×2 (08:19→16:29)
[2020-10-13] MEDS: FLUTICASONE NASAL SPRAY 16GM NAS SCH (08:20)
[2020-10-13] MEDS: SODIUM CHLORIDE FLUSH 10ML SYR IVF SCH ×2 (08:21→20:47)
[2020-10-13] MEDS: INSULIN LISPRO 100 UNITS/ML, PEN SQ-INSULIN SCH ×4 (08:21→20:48)
[2020-10-13] MEDS: TRIAMCINOLONE CRM 0.1%, 15GM TP SCH ×2 (09:00→20:47)
[2020-10-13] MEDS: METOPROLOL TARTRATE 25 MG TAB PO SCH ×2 (09:43→17:29)
[2020-10-13] MEDS: CHOLESTYRAMINE LIGHT 4GM PACKET PO SCH ×2 (09:43→20:50)
[2020-10-13 15:26] VITALS: BP 149/87
[2020-10-13 19:19] VITALS: BP 169/104
[2020-10-13] MEDS: INSULIN GLARGINE 100 UNITS/ML, PEN SQ-INSULIN SCH (20:48)
[2020-10-13] MEDS: TRAZODONE 50MG TABLET PO PRN (20:49)
[2020-10-13] MEDS: DOXYLAMINE 25MG TABLET PO SCH (20:50)
[2020-10-13] MEDS: morphine SULFATE 10 MG/ML, 1ML IVPush PRN (21:31)
[2020-10-14 00:13] VITALS: BP 164/89
[2020-10-14] MEDS: DEXAMETHASONE 4 MG/ML, 1ML IVPush SCH ×2 (02:38→09:32)
[2020-10-14] MEDS: PIPERACILLIN/TAZO 3.375 GM in DEXTROSE 5% 50 ML IV SCH ×4 (03:25→21:52)
[2020-10-14] MEDS: HEPARIN 5,000 UNITS/ML, 1ML SQ SCH ×3 (04:59→20:36)
[2020-10-14] MEDS: METOPROLOL TARTRATE 25 MG TAB PO SCH ×2 (05:06→17:26)
[2020-10-14 06:15] VITALS: BP 174/92
[2020-10-14] MEDS: FUROSEMIDE 20 MG/2 ML IV SCH ×2 (07:50→16:35)
[2020-10-14] MEDS: FLUTICASONE NASAL SPRAY 16GM NAS SCH (07:50)
[2020-10-14] MEDS: SIMETHICONE 125 MG CHEW TAB PO SCH ×4 (07:51→20:36)
[2020-10-14] MEDS: SODIUM CHLORIDE FLUSH 10ML SYR IVF SCH ×2 (07:51→20:34)
[2020-10-14] MEDS: PYRIDOXINE (Vitamin B6) 50MG TAB PO SCH (07:51)
[2020-10-14] MEDS: URSODIOL 300 MG CAPSULE PO SCH ×2 (07:51→20:36)
[2020-10-14] MEDS: FAMOTIDINE 20 MG TABLET PO SCH ×2 (07:51→20:36)
[2020-10-14] MEDS: INSULIN LISPRO 100 UNITS/ML, PEN SQ-INSULIN SCH ×4 (07:51→20:36)
[2020-10-14] MEDS: TRIAMCINOLONE CRM 0.1%, 15GM TP SCH ×2 (07:52→20:34)
[2020-10-14] MEDS: CHOLESTYRAMINE LIGHT 4GM PACKET PO SCH ×2 (09:31→20:36)
[2020-10-14 13:43] VITALS: BP 153/85
[2020-10-14 18:35] VITALS: BP 148/79
[2020-10-14] MEDS: INSULIN GLARGINE 100 UNITS/ML, PEN SQ-INSULIN SCH (20:35)
[2020-10-14] MEDS: DOXYLAMINE 25MG TABLET PO SCH (20:36)
[2020-10-14] MEDS: TRAZODONE 50MG TABLET PO PRN (23:39)
[2020-10-14] MEDS: ACETAMINOPHEN 325 MG TABLET PO PRN (23:40)
[2020-10-15 01:47] VITALS: BP 139/72
[2020-10-15] MEDS: ACETAMINOPHEN 325 MG TABLET PO PRN ×3 (03:44→17:51)
[2020-10-15] MEDS: METHOCARBAMOL 750 MG TABLET PO PRN (03:44)
[2020-10-15] MEDS: PIPERACILLIN/TAZO 3.375 GM in DEXTROSE 5% 50 ML IV SCH ×4 (03:46→22:07)
[2020-10-15] MEDS: HEPARIN 5,000 UNITS/ML, 1ML SQ SCH ×3 (05:17→20:44)
[2020-10-15] MEDS: METOPROLOL TARTRATE 25 MG TAB PO SCH ×2 (05:18→17:39)
[2020-10-15 06:08] VITALS: BP 150/80
[2020-10-15] MEDS ORDERED: DEXAMETHASONE 4 MG TABLET PO SCH (07:30)
[2020-10-15] MEDS: SIMETHICONE 125 MG CHEW TAB PO SCH ×4 (08:09→20:44)
[2020-10-15] MEDS: FUROSEMIDE 20 MG/2 ML IV SCH ×2 (08:09→16:22)
[2020-10-15] MEDS: INSULIN LISPRO 100 UNITS/ML, PEN SQ-INSULIN SCH ×4 (08:10→20:43)
[2020-10-15] MEDS: URSODIOL 300 MG CAPSULE PO SCH ×2 (08:27→20:44)
[2020-10-15] MEDS: FAMOTIDINE 20 MG TABLET PO SCH ×2 (08:28→20:44)
[2020-10-15] MEDS: PYRIDOXINE (Vitamin B6) 50MG TAB PO SCH (08:28)
[2020-10-15] MEDS: FLUTICASONE NASAL SPRAY 16GM NAS SCH ×2 (08:30→08:32)
[2020-10-15] MEDS: SODIUM CHLORIDE FLUSH 10ML SYR IVF SCH ×2 (08:30→20:42)
[2020-10-15] MEDS: DEXAMETHASONE 4 MG TABLET PO SCH ×3 (08:30→20:44)
[2020-10-15] MEDS ORDERED: OXYcodone IR 5MG TABLET PO PRN (08:30)
[2020-10-15] MEDS: TRIAMCINOLONE CRM 0.1%, 15GM TP SCH ×2 (09:00→20:42)
[2020-10-15] MEDS: CHOLESTYRAMINE LIGHT 4GM PACKET PO SCH ×2 (10:08→20:43)
[2020-10-15] MEDS: ONDANSETRON 2MG/ML, 2ML IV PRN (10:20)
[2020-10-15 11:15] VITALS: BP 147/87
[2020-10-15] MEDS: morphine SULFATE 10 MG/ML, 1ML IVPush PRN (12:21)
[2020-10-15 16:12] LABS: ANA SCREEN NEGATIVE (Negative)
[2020-10-15 19:12] VITALS: BP 129/81
[2020-10-15] MEDS: DOXYLAMINE 25MG TABLET PO SCH (20:42)
[2020-10-15] MEDS: INSULIN GLARGINE 100 UNITS/ML, PEN SQ-INSULIN SCH (20:43)
[2020-10-16 00:46] VITALS: BP 132/79
[2020-10-16] MEDS: PIPERACILLIN/TAZO 3.375 GM in DEXTROSE 5% 50 ML IV SCH ×4 (04:15→20:39)
[2020-10-16] MEDS: HEPARIN 5,000 UNITS/ML, 1ML SQ SCH ×3 (04:15→20:37)
[2020-10-16] MEDS: morphine SULFATE 10 MG/ML, 1ML IVPush PRN (04:20)
[2020-10-16] MEDS: METOPROLOL TARTRATE 25 MG TAB PO SCH ×2 (05:30→17:38)
[2020-10-16 06:11] LABS: CHLORIDE 102 mmol/L (98-107)
[2020-10-16 06:18] VITALS: BP 148/86
[2020-10-16 06:19] LABS: ALANINE AMINOTRANSFERASE 27 U/L (12-78); ALBUMIN 2.1 g/dL (3.4-5.0); ALKALINE PHOSPHATASE 428 U/L (45-117); ANION GAP 7 mmol/L (5-15); BILIRUBIN,TOTAL 0.3 mg/dL (0.2-1.0); CALCIUM 8.3 mg/dL (8.5-10.1); CREATININE 1.05 mg/dL (0.55-1.02); GAMMA GLUTAMYL TRANSPEPTIDASE 446 U/L (5-55); TOTAL PROTEIN 6.2 g/dL (6.4-8.2)
[2020-10-16] MEDS: SIMETHICONE 125 MG CHEW TAB PO SCH ×4 (07:30→20:39)
[2020-10-16] MEDS: FUROSEMIDE 20 MG/2 ML IV SCH ×2 (07:31→16:18)
[2020-10-16] MEDS: SODIUM CHLORIDE FLUSH 10ML SYR IVF SCH ×2 (07:31→20:39)
[2020-10-16] MEDS: INSULIN LISPRO 100 UNITS/ML, PEN SQ-INSULIN SCH ×4 (07:49→20:36)
[2020-10-16] MEDS: PYRIDOXINE (Vitamin B6) 50MG TAB PO SCH (09:00)
[2020-10-16] MEDS: FLUTICASONE NASAL SPRAY 16GM NAS SCH (09:00)
[2020-10-16] MEDS: TRIAMCINOLONE CRM 0.1%, 15GM TP SCH ×2 (09:23→20:35)
[2020-10-16] MEDS: FAMOTIDINE 20 MG TABLET PO SCH ×2 (09:24→20:37)
[2020-10-16] MEDS: URSODIOL 300 MG CAPSULE PO SCH ×2 (09:24→20:37)
[2020-10-16] MEDS: DEXAMETHASONE 4 MG TABLET PO SCH ×2 (09:24→20:39)
[2020-10-16] MEDS: CHOLESTYRAMINE LIGHT 4GM PACKET PO SCH ×2 (09:24→20:37)
[2020-10-16 15:32] VITALS: BP 151/90
[2020-10-16 19:36] VITALS: BP 143/86
[2020-10-16] MEDS: INSULIN GLARGINE 100 UNITS/ML, PEN SQ-INSULIN SCH (20:36)
[2020-10-16] MEDS: DOXYLAMINE 25MG TABLET PO SCH (20:37)
[2020-10-17] MEDS: ACETAMINOPHEN 325 MG TABLET PO PRN (00:42)
[2020-10-17 00:43] VITALS: BP 159/92
[2020-10-17] MEDS: METOPROLOL TARTRATE 25 MG TAB PO SCH ×2 (05:28→17:59)
[2020-10-17] MEDS: HEPARIN 5,000 UNITS/ML, 1ML SQ SCH ×3 (05:28→20:28)
[2020-10-17 07:11] VITALS: BP 177/104
[2020-10-17] MEDS: SIMETHICONE 125 MG CHEW TAB PO SCH ×4 (07:38→20:28)
[2020-10-17] MEDS: morphine SULFATE 10 MG/ML, 1ML IVPush PRN ×2 (07:39→13:45)
[2020-10-17] MEDS: CEPHALEXIN 500 MG CAPSULE PO SCH ×3 (07:39→23:38)
[2020-10-17] MEDS: FUROSEMIDE 20 MG/2 ML IV SCH (07:39)
[2020-10-17] MEDS: INSULIN LISPRO 100 UNITS/ML, PEN SQ-INSULIN SCH ×5 (07:40→20:27)
[2020-10-17] MEDS: SODIUM CHLORIDE FLUSH 10ML SYR IVF SCH ×2 (07:41→20:26)
[2020-10-17 08:00] VITALS: BP 134/81
[2020-10-17] MEDS: FLUTICASONE NASAL SPRAY 16GM NAS SCH (09:00)
[2020-10-17] MEDS: PYRIDOXINE (Vitamin B6) 50MG TAB PO SCH (09:00)
[2020-10-17] MEDS: TRIAMCINOLONE CRM 0.1%, 15GM TP SCH ×2 (09:00→20:29)
[2020-10-17] MEDS: CHOLESTYRAMINE LIGHT 4GM PACKET PO SCH ×2 (09:53→20:28)
[2020-10-17] MEDS: DEXAMETHASONE 4 MG TABLET PO SCH ×2 (09:53→20:28)
[2020-10-17] MEDS: URSODIOL 300 MG CAPSULE PO SCH ×2 (09:53→20:28)
[2020-10-17] MEDS: FAMOTIDINE 20 MG TABLET PO SCH ×2 (09:53→20:28)
[2020-10-17 11:33] VITALS: BP 102/70
[2020-10-17] MEDS ORDERED: LOPERAMIDE 2 MG CAPSULE PO PRN (13:30)
[2020-10-17 15:50] VITALS: BP 150/95
[2020-10-17 19:57] VITALS: BP 132/81
[2020-10-17] MEDS: INSULIN GLARGINE 100 UNITS/ML, PEN SQ-INSULIN SCH (20:27)
[2020-10-17] MEDS: DOXYLAMINE 25MG TABLET PO SCH (20:28)
[2020-10-18 01:27] VITALS: BP 121/78
[2020-10-18] MEDS: HEPARIN 5,000 UNITS/ML, 1ML SQ SCH ×3 (05:34→20:15)
[2020-10-18] MEDS: METOPROLOL TARTRATE 25 MG TAB PO SCH ×2 (05:34→17:03)
[2020-10-18 06:45] VITALS: BP 150/85
[2020-10-18] MEDS: INSULIN LISPRO 100 UNITS/ML, PEN SQ-INSULIN SCH ×3 (07:00→20:16)
[2020-10-18] MEDS: SIMETHICONE 125 MG CHEW TAB PO SCH ×4 (07:00→20:17)
[2020-10-18] MEDS: PYRIDOXINE (Vitamin B6) 50MG TAB PO SCH (09:00)
[2020-10-18] MEDS: CHOLESTYRAMINE LIGHT 4GM PACKET PO SCH ×2 (09:00→20:17)
[2020-10-18] MEDS: SODIUM CHLORIDE FLUSH 10ML SYR IVF SCH ×2 (09:00→20:14)
[2020-10-18] MEDS: TRIAMCINOLONE CRM 0.1%, 15GM TP SCH ×2 (09:00→20:15)
[2020-10-18] MEDS: FLUTICASONE NASAL SPRAY 16GM NAS SCH (09:00)
[2020-10-18] MEDS: morphine SULFATE 10 MG/ML, 1ML IVPush PRN (09:59)
[2020-10-18] MEDS: CEPHALEXIN 500 MG CAPSULE PO SCH ×2 (10:00→17:02)
[2020-10-18] MEDS: DEXAMETHASONE 4 MG TABLET PO SCH ×2 (10:01→20:18)
[2020-10-18] MEDS: URSODIOL 300 MG CAPSULE PO SCH ×2 (10:01→20:17)
[2020-10-18] MEDS: FAMOTIDINE 20 MG TABLET PO SCH ×2 (10:01→20:18)
[2020-10-18 10:54] LABS: INTERNATIONAL NORMALIZED RATIO 1.03 (0.93-1.1)
[2020-10-18] MEDS ORDERED: LIDOCAINE 1%, 10ML ONE (11:16)
[2020-10-18] MEDS ORDERED: NALOXONE 1 MG/ML, 2ML ONE (11:31)
[2020-10-18] MEDS ORDERED: FLUMAZENIL 0.1 MG/1 ML, 5ML ONE (11:31)
[2020-10-18] MEDS ORDERED: MIDAZOLAM 1 MG/ML, 5ML ONE (11:31)
[2020-10-18] MEDS ORDERED: FENTANYL PF 100 MCG/2ML ONE (11:31)
[2020-10-18] MEDS ORDERED: OMNIPAQUE 350 MG/ML, 100ML BOTTLE ONE (12:55)
[2020-10-18 13:06] VITALS: BP 179/90
[2020-10-18 16:55] VITALS: BP 129/84
[2020-10-18 19:33] VITALS: BP 117/75
[2020-10-18] MEDS: INSULIN GLARGINE 100 UNITS/ML, PEN SQ-INSULIN SCH (20:17)
[2020-10-18] MEDS: DOXYLAMINE 25MG TABLET PO SCH (20:17)
[2020-10-19] MEDS: CEPHALEXIN 500 MG CAPSULE PO SCH ×4 (00:28→22:48)
[2020-10-19 01:44] VITALS: BP 151/83
[2020-10-19] MEDS: METOPROLOL TARTRATE 25 MG TAB PO SCH ×2 (05:32→17:10)
[2020-10-19] MEDS: HEPARIN 5,000 UNITS/ML, 1ML SQ SCH ×3 (05:32→20:38)
[2020-10-19 07:58] VITALS: BP 155/83
[2020-10-19] MEDS: URSODIOL 300 MG CAPSULE PO SCH ×2 (08:38→20:38)
[2020-10-19] MEDS: DEXAMETHASONE 4 MG TABLET PO SCH ×2 (08:38→20:37)
[2020-10-19] MEDS: PYRIDOXINE (Vitamin B6) 50MG TAB PO SCH (08:38)
[2020-10-19] MEDS: FAMOTIDINE 20 MG TABLET PO SCH ×2 (08:39→20:38)
[2020-10-19] MEDS: SIMETHICONE 125 MG CHEW TAB PO SCH ×4 (08:39→20:38)
[2020-10-19] MEDS: morphine SULFATE 10 MG/ML, 1ML IVPush PRN ×2 (08:40→13:02)
[2020-10-19] MEDS: CHOLESTYRAMINE LIGHT 4GM PACKET PO SCH ×2 (08:40→22:14)
[2020-10-19] MEDS: TRIAMCINOLONE CRM 0.1%, 15GM TP SCH ×2 (08:40→20:36)
[2020-10-19] MEDS: SODIUM CHLORIDE FLUSH 10ML SYR IVF SCH ×2 (08:41→20:36)
[2020-10-19] MEDS: FLUTICASONE NASAL SPRAY 16GM NAS SCH (08:41)
[2020-10-19] MEDS: INSULIN LISPRO 100 UNITS/ML, PEN SQ-INSULIN SCH ×4 (08:42→20:37)
[2020-10-19 13:13] VITALS: BP 140/68
[2020-10-19 19:06] VITALS: BP 124/82
[2020-10-19] MEDS: INSULIN GLARGINE 100 UNITS/ML, PEN SQ-INSULIN SCH (20:37)
[2020-10-19] MEDS: DOXYLAMINE 25MG TABLET PO SCH (20:38)
[2020-10-20 02:57] VITALS: BP 149/84
[2020-10-20] MEDS: METOPROLOL TARTRATE 25 MG TAB PO SCH ×2 (05:06→16:56)
[2020-10-20] MEDS: HEPARIN 5,000 UNITS/ML, 1ML SQ SCH ×3 (05:06→20:30)
[2020-10-20] MEDS: morphine SULFATE 10 MG/ML, 1ML IVPush PRN (05:06)
[2020-10-20 06:00] LABS: BASOPHILS % (AUTO) 0 % (0-1); EOSINOPHILS % (AUTO) 1 % (1-7); LYMPHOCYTES % (AUTO) 8 % (22-44); MEAN CORPUSCULAR HEMOGLOBIN 29.6 pg (27.0-34.8); MEAN CORPUSCULAR HGB CONC 33.3 g/dL (32.4-35.8); MEAN PLATELET VOLUME 7.7 fL (7.4-10.4); MONOCYTES % (AUTO) 3 % (2-9); NEUTROPHILS % (AUTO) 88 % (42-75); PLATELET COUNT 317 x10^3/uL (130-400); RED BLOOD COUNT 4.11 x10^6/uL (3.82-5.3); RED CELL DISTRIBUTION WIDTH 20.4 % (9.6-15.2)
[2020-10-20 06:06] LABS: ALANINE AMINOTRANSFERASE 35 U/L (12-78); ALBUMIN 2.2 g/dL (3.4-5.0); ANION GAP 7 mmol/L (5-15); CALCIUM 8.2 mg/dL (8.5-10.1); CHLORIDE 105 mmol/L (98-107)
[2020-10-20 06:09] LABS: ALKALINE PHOSPHATASE 297 U/L (45-117); BILIRUBIN,TOTAL 0.3 mg/dL (0.2-1.0); MD NO; TOTAL PROTEIN 6.1 g/dL (6.4-8.2)
[2020-10-20 06:40] VITALS: BP 146/84
[2020-10-20] MEDS: FLUTICASONE NASAL SPRAY 16GM NAS SCH (07:35)
[2020-10-20] MEDS: FAMOTIDINE 20 MG TABLET PO SCH ×2 (08:16→20:31)
[2020-10-20] MEDS: DEXAMETHASONE 4 MG TABLET PO SCH ×2 (08:16→20:31)
[2020-10-20] MEDS: SIMETHICONE 125 MG CHEW TAB PO SCH ×4 (08:16→20:31)
[2020-10-20] MEDS: URSODIOL 300 MG CAPSULE PO SCH ×2 (08:16→20:31)
[2020-10-20] MEDS: PYRIDOXINE (Vitamin B6) 50MG TAB PO SCH (08:16)
[2020-10-20] MEDS: TRIAMCINOLONE CRM 0.1%, 15GM TP SCH ×2 (08:16→20:31)
[2020-10-20] MEDS: CEPHALEXIN 500 MG CAPSULE PO SCH ×3 (08:16→23:56)
[2020-10-20] MEDS: SODIUM CHLORIDE FLUSH 10ML SYR IVF SCH ×2 (08:17→20:28)
[2020-10-20] MEDS: INSULIN LISPRO 100 UNITS/ML, PEN SQ-INSULIN SCH ×4 (08:27→20:30)
[2020-10-20] MEDS: CHOLESTYRAMINE LIGHT 4GM PACKET PO SCH ×2 (10:36→22:03)
[2020-10-20 12:29] VITALS: BP 148/81
[2020-10-20 19:02] VITALS: BP 139/78
[2020-10-20] MEDS: DOXYLAMINE 25MG TABLET PO SCH (20:31)
[2020-10-20] MEDS ORDERED: INSULIN GLARGINE 100 UNITS/ML, PEN SQ-INSULIN SCH (21:00)
[2020-10-21 00:53] VITALS: BP 144/82
[2020-10-21] MEDS: METOPROLOL TARTRATE 25 MG TAB PO SCH (05:09)
[2020-10-21] MEDS: HEPARIN 5,000 UNITS/ML, 1ML SQ SCH (05:09)
[2020-10-21] MEDS: morphine SULFATE 10 MG/ML, 1ML IVPush PRN (05:10)
[2020-10-21] MEDS: CEPHALEXIN 500 MG CAPSULE PO SCH (08:33)
[2020-10-21] MEDS: DEXAMETHASONE 4 MG TABLET PO SCH (08:33)
[2020-10-21] MEDS: URSODIOL 300 MG CAPSULE PO SCH (08:34)
[2020-10-21] MEDS: SIMETHICONE 125 MG CHEW TAB PO SCH (08:34)
[2020-10-21] MEDS: FAMOTIDINE 20 MG TABLET PO SCH (08:34)
[2020-10-21] MEDS: FLUTICASONE NASAL SPRAY 16GM NAS SCH (08:34)
[2020-10-21] MEDS: TRIAMCINOLONE CRM 0.1%, 15GM TP SCH (08:34)
[2020-10-21] MEDS: PYRIDOXINE (Vitamin B6) 50MG TAB PO SCH (08:34)
[2020-10-21] MEDS: INSULIN LISPRO 100 UNITS/ML, PEN SQ-INSULIN SCH (08:35)
[2020-10-21] MEDS: SODIUM CHLORIDE FLUSH 10ML SYR IVF SCH (08:35)
[2020-10-21 08:39] LABS: BASOPHILS % (AUTO) 1 % (0-1); EOSINOPHILS % (AUTO) 1 % (1-7); LYMPHOCYTES % (AUTO) 10 % (22-44); MEAN CORPUSCULAR HEMOGLOBIN 30.3 pg (27.0-34.8); MEAN CORPUSCULAR HGB CONC 33.9 g/dL (32.4-35.8); MEAN PLATELET VOLUME 7.2 fL (7.4-10.4); MONOCYTES % (AUTO) 4 % (2-9); NEUTROPHILS % (AUTO) 84 % (42-75); PLATELET COUNT 348 x10^3/uL (130-400); RED CELL DISTRIBUTION WIDTH 20.9 % (9.6-15.2)
[2020-10-21 08:57] LABS: MD SCAN
[2020-10-21 09:22] VITALS: BP 154/88
[2020-10-21] MEDS ORDERED: CEPH-376 PO (09:59)
[2020-10-21] MEDS: CHOLESTYRAMINE LIGHT 4GM PACKET PO SCH (10:04)
== END 2020-10-21 11:55 | disposition home or self-care (01) | DRG 871 ==
LOC: SUATTDRO 17:01 → ED 18:30 → EDIP 18:45 → 3N 19:04 → CCU 08-22 17:14 → 3N 08-23 12:44 → 4NE 09-05 21:05 → 3N 09-11 14:55 → 4WST 09-13 12:40
PROVIDERS: ADMIT Internal Medicine; ATTEND Family Medicine
PROC: 0W9H3ZZ Drainage of Retroperitoneum, Percutaneous Approach (ICD-10-PCS; 2020-08-21)
PROC: 0W9H3ZZ Drainage of Retroperitoneum, Percutaneous Approach (ICD-10-PCS; 2020-08-28)
PROC: 0DBN8ZX Excision of Sigmoid Colon, Via Natural or Artificial Opening Endoscopic, Diagnostic (ICD-10-PCS; 2020-09-04)
PROC: 0DBM8ZX Excision of Descending Colon, Via Natural or Artificial Opening Endoscopic, Diagnostic (ICD-10-PCS; principal; 2020-09-04 08:30)
PROC: 30233N1 Transfusion of Nonautologous Red Blood Cells into Peripheral Vein, Percutaneous Approach (ICD-10-PCS; 2020-09-06)
PROC: 02HV33Z Insertion of Infusion Device into Superior Vena Cava, Percutaneous Approach (ICD-10-PCS; 2020-09-16)
PROC: B548ZZA Ultrasonography of Superior Vena Cava, Guidance (ICD-10-PCS; 2020-09-16)
PROC: 0W9B3ZZ Drainage of Left Pleural Cavity, Percutaneous Approach (ICD-10-PCS; 2020-09-24)
PROC: 0W993ZZ Drainage of Right Pleural Cavity, Percutaneous Approach (ICD-10-PCS; 2020-09-24)
PROC: 0W9H30Z Drainage of Retroperitoneum with Drainage Device, Percutaneous Approach (ICD-10-PCS; 2020-09-24)
PROC: 0DB98ZX Excision of Duodenum, Via Natural or Artificial Opening Endoscopic, Diagnostic (ICD-10-PCS; 2020-10-06)
PROC: 0DB68ZX Excision of Stomach, Via Natural or Artificial Opening Endoscopic, Diagnostic (ICD-10-PCS; 2020-10-06)
PROC: 0FB03ZX Excision of Liver, Percutaneous Approach, Diagnostic (ICD-10-PCS; 2020-10-18)
DX: A41.51 Sepsis due to Escherichia coli [E. coli] (principal); E43 Unspecified severe protein-calorie malnutrition; J96.92 Respiratory failure, unspecified with hypercapnia; K68.19 Other retroperitoneal abscess; N15.1 Renal and perinephric abscess; N17.0 Acute kidney failure with tubular necrosis; R65.21 Severe sepsis with septic shock; B37.49 Other urogenital candidiasis; K56.7 Ileus, unspecified; K91.89 Other postprocedural complications and disorders of digestive system; Z16.11 Resistance to penicillins; Z20.822 Contact with and (suspected) exposure to COVID-19; D50.9 Iron deficiency anemia, unspecified; D63.8 Anemia in other chronic diseases classified elsewhere; D73.5 Infarction of spleen; E11.43 Type 2 diabetes mellitus with diabetic autonomic (poly)neuropathy; E11.65 Type 2 diabetes mellitus with hyperglycemia; E87.5 Hyperkalemia; E87.6 Hypokalemia; F32.9 Major depressive disorder, single episode, unspecified; I11.0 Hypertensive heart disease with heart failure; I50.9 Heart failure, unspecified; K31.84 Gastroparesis; K63.5 Polyp of colon; K64.0 First degree hemorrhoids; K30 Functional dyspepsia; K75.9 Inflammatory liver disease, unspecified; L40.9 Psoriasis, unspecified; T38.0X5A Adverse effect of glucocorticoids and synthetic analogues, initial encounter; Z79.2 Long term (current) use of antibiotics; Z87.19 Personal history of other diseases of the digestive system; Z91.14 Patient's other noncompliance with medication regimen; Z91.19 Patient's noncompliance with other medical treatment and regimen; Y92.89 Other specified places as the place of occurrence of the external cause; Z79.899 Other long term (current) drug therapy; Z68.21 Body mass index [BMI] 21.0-21.9, adult
CPT/HCPCS: 32555; 36415; 36600; 74018; 74270; 75984; 75989; 83036; 84145; 87106; 87806; 89055; 99285; J3475; J3490; 36573; 47000; 49405; 49406; 49423; 70460; 71045; 71260; 74176; 74177; 74181; 76700; 76770; 76942; 78227; 78264; 80048; 80053; 80074; 81001; 82040; 82272; 82533; 82728; 82784; 82803; 82947; 82962; 82977; 83516; 83540; 83550; 83605; 83690; 83735; 83880; 84100; 84134; 84478; 84484; 84703; 85014; 85018; 85025; 85610; 85651; 86038; 86140; 86850; 86900; 86923; 87015; 87040; 87070; 87075; 87077; 87081; 87086; 87102; 87116; 87186; 87205; 87206; 87324; 87496; 87635; 88305; 88307; 88342; 93005; 93306; 99156; 99157; G0378; J0295; J0610; J0696; J1100; J1170; J1644; J1650; J1756; J1815; J1885; J1940; J2185; J2250; J2405; J2543; J2704; J2710; J2997; J3010; J3370; J3480; P9047; Q0162; Q9963; Q9967; A9537; A9541; C1729; C1751; C1765; C1769; C9898; G0475; J0330; J2270; J2310; J2370; J2765; J2800; J2805; J3420; J7030; J7040; J7050; J7120; P9016

== ENCOUNTER 2020-10-23 07:21 | Inpatient (IN) | payer SELFPAY ==
[~2020-10-23] VITALS: Ht 160 cm; Wt 62.4 kg
[~2020-10-23 07:21] MED LIST changes: +CEPH-376 PO
[2020-10-23] MEDS ORDERED: ONDANSETRON 2MG/ML, 2ML ONE (07:56)
[2020-10-23] MEDS ORDERED: HYDROmorphone 2 MG/ML, 1ML ONE (07:56)
[2020-10-23] MEDS ORDERED: HYDROmorphone 1 MG/ML, 1ML INJ IV ONE (08:00)
[2020-10-23] MEDS ORDERED: SODIUM CHLORIDE FLUSH 10ML SYR IVF ONE (08:00)
[2020-10-23] MEDS ORDERED: ONDANSETRON 2MG/ML, 2ML IVPush ONE (08:00)
[2020-10-23] MEDS ORDERED: SODIUM CHLORIDE 0.9% 1,000ML IVBOLUS ONE (08:00)
[2020-10-23 08:15] LABS: BASOPHILS % (AUTO) 1 % (0-1); EOSINOPHILS % (AUTO) 4 % (1-7); LYMPHOCYTES % (AUTO) 7 % (22-44); MEAN CORPUSCULAR HEMOGLOBIN 30.5 pg (27.0-34.8); MEAN CORPUSCULAR HGB CONC 33.6 g/dL (32.4-35.8); MEAN PLATELET VOLUME 7.6 fL (7.4-10.4); MONOCYTES % (AUTO) 4 % (2-9); NEUTROPHILS % (AUTO) 83 % (42-75); PLATELET COUNT 368 x10^3/uL (130-400); RED BLOOD COUNT 4.64 x10^6/uL (3.82-5.3)
[2020-10-23 08:22] LABS: MICROSCOPIC INDICATED
--- NOTE | 2020-10-23 08:22 | NUR ---
THIS RN UNABLE TO OBTAIN PIV ACCESS DESPITE MULT ATTEMPTS, AWAITING ATTEMPT BY OTHER STAFF, ERP AWARE.
[2020-10-23 08:25] LABS: ALBUMIN 2.4 g/dL (3.4-5.0); ANION GAP 11 mmol/L (5-15); CALCIUM 8.4 mg/dL (8.5-10.1); CHLORIDE 104 mmol/L (98-107)
[2020-10-23 08:28] LABS: ALANINE AMINOTRANSFERASE 40 U/L (12-78); ALKALINE PHOSPHATASE 269 U/L (45-117); BILIRUBIN,TOTAL 0.3 mg/dL (0.2-1.0); CREATININE 0.99 mg/dL (0.55-1.02); TOTAL PROTEIN 6.8 g/dL (6.4-8.2)
[2020-10-23] MEDS ORDERED: OMNIPAQUE 350 MG/ML, 100ML BOTTLE ONE (09:05)
--- NOTE | 2020-10-23 09:30 | NUR ---
PT UPRIGHT ON GURNEY AWAKE WITH C/O PAIN- MEDICATED PER EMAR, [place] SPEAKING BUT RESPONDS APPROP TO STAFF, COMFORT MEASURES PROVIDED, FAMILY AT BS, CALL LIGHT WITHIN REACH.
--- NOTE | 2020-10-23 10:00 | NUR ---
REPORT GIVEN TO KRISTI
--- NOTE | 2020-10-23 11:21 | NUR ---
Pt has been sleeping. Hospitalist at bedside now for admit eval. Pt to be transfered to medical floor.
[2020-10-23 11:54] VITALS: BP 147/84
[2020-10-23] MEDS ORDERED: LABETALOL 5MG/ML, 20ML IVPush PRN (12:00)
[2020-10-23] MEDS ORDERED: DEXTROSE 4 GM TAB.CHEW PO PRN (12:00)
[2020-10-23] MEDS ORDERED: BISACODYL 10 MG SUPP PR PRN (12:00)
[2020-10-23] MEDS ORDERED: GLUCAGON 1 MG IM PRN (12:00)
[2020-10-23] MEDS ORDERED: DEXTROSE 50%, 50ML SYRINGE IVPush PRN (12:00)
[2020-10-23] MEDS ORDERED: ONDANSETRON ODT 4 MG PO PRN (12:00)
[2020-10-23] MEDS ORDERED: hydrALAzine 20 MG/ML, 1ML IVPush PRN (12:00)
[2020-10-23] MEDS ORDERED: DOCUSATE 100 MG CAPSULE PO PRN (12:00)
[2020-10-23] MEDS: LACTATED RINGERS 1,000 ML IV SCH ×2 (12:29→20:26)
[2020-10-23 12:40] LABS: HCT (SEDRATE) 36.7 % (34.6-47.8)
[2020-10-23] MEDS: CEFAZOLIN PMX 1GM/50ML 50 ML IV SCH (12:46)
[2020-10-23] MEDS: HEPARIN 5,000 UNITS/ML, 1ML SQ SCH ×2 (12:47→20:25)
[2020-10-23] MEDS: SODIUM CHLORIDE FLUSH 10ML SYR IVF SCH ×2 (12:52→20:26)
[2020-10-23] MEDS: INSULIN LISPRO 100 UNITS/ML, PEN SQ-INSULIN SCH ×3 (13:56→20:34)
[2020-10-23] MEDS: morphine SULFATE 10 MG/ML, 1ML IVPush PRN (16:45)
[2020-10-23 19:04] VITALS: BP 111/73
[2020-10-24 00:50] VITALS: BP 121/80
[2020-10-24] MEDS: CEFAZOLIN PMX 1GM/50ML 50 ML IV SCH ×2 (00:57→16:53)
[2020-10-24] MEDS: morphine SULFATE 10 MG/ML, 1ML IVPush PRN ×4 (01:18→20:49)
[2020-10-24] MEDS: LACTATED RINGERS 1,000 ML IV SCH ×2 (04:04→11:42)
[2020-10-24] MEDS: HEPARIN 5,000 UNITS/ML, 1ML SQ SCH ×3 (04:47→20:49)
[2020-10-24 05:13] LABS: BASOPHILS % (AUTO) 1 % (0-1); EOSINOPHILS % (AUTO) 6 % (1-7); LYMPHOCYTES % (AUTO) 15 % (22-44); MEAN CORPUSCULAR HEMOGLOBIN 30.9 pg (27.0-34.8); MEAN CORPUSCULAR HGB CONC 34.6 g/dL (32.4-35.8); MEAN PLATELET VOLUME 7.7 fL (7.4-10.4); MONOCYTES % (AUTO) 6 % (2-9); NEUTROPHILS % (AUTO) 73 % (42-75); PLATELET COUNT 284 x10^3/uL (130-400); RED BLOOD COUNT 3.65 x10^6/uL (3.82-5.3); RED CELL DISTRIBUTION WIDTH 20.6 % (9.6-15.2)
[2020-10-24 05:22] LABS: CHLORIDE 114 mmol/L (98-107)
[2020-10-24 05:31] LABS: ALANINE AMINOTRANSFERASE 28 U/L (12-78); ALBUMIN 1.7 g/dL (3.4-5.0); ALKALINE PHOSPHATASE 204 U/L (45-117); ANION GAP 6 mmol/L (5-15); BILIRUBIN,TOTAL 0.2 mg/dL (0.2-1.0); CALCIUM 7.8 mg/dL (8.5-10.1); CHOL/HDL RATIO 4.6; CHOLESTEROL, TOTAL 225 mg/dL (140-239); CREATININE 0.56 mg/dL (0.55-1.02); HDL CHOL % 22 % (28-40); HDL CHOLESTEROL (DIRECT) 49 mg/dL (40-60); LDL CHOLESTEROL,CALCULATED 99 mg/dL (54-169); TOTAL PROTEIN 5.1 g/dL (6.4-8.2); TRIGLYCERIDES 383 mg/dL (50-200); VLDL CHOLESTEROL 77 mg/dL (0-25)
[2020-10-24] MEDS: INSULIN LISPRO 100 UNITS/ML, PEN SQ-INSULIN SCH ×4 (07:00→20:52)
[2020-10-24] MEDS: ONDANSETRON 2MG/ML, 2ML IVPush PRN ×2 (07:51→20:49)
[2020-10-24] MEDS: SODIUM CHLORIDE FLUSH 10ML SYR IVF SCH ×2 (08:58→20:50)
[2020-10-24 14:09] VITALS: BP 153/88
[2020-10-24 19:30] VITALS: BP 126/68
[2020-10-25 00:37] VITALS: BP 143/81
[2020-10-25] MEDS: CEFAZOLIN PMX 1GM/50ML 50 ML IV SCH ×3 (01:18→17:15)
[2020-10-25 05:00] LABS: ALBUMIN 1.8 g/dL (3.4-5.0); ANION GAP 7 mmol/L (5-15); CALCIUM 7.9 mg/dL (8.5-10.1); CHLORIDE 114 mmol/L (98-107)
[2020-10-25 05:01] LABS: BASOPHILS % (AUTO) 1 % (0-1); EOSINOPHILS % (AUTO) 7 % (1-7); LYMPHOCYTES % (AUTO) 15 % (22-44); MEAN CORPUSCULAR HEMOGLOBIN 30.7 pg (27.0-34.8); MEAN CORPUSCULAR HGB CONC 34.2 g/dL (32.4-35.8); MEAN PLATELET VOLUME 7.5 fL (7.4-10.4); MONOCYTES % (AUTO) 6 % (2-9); NEUTROPHILS % (AUTO) 71 % (42-75); PLATELET COUNT 283 x10^3/uL (130-400); RED BLOOD COUNT 3.67 x10^6/uL (3.82-5.3); RED CELL DISTRIBUTION WIDTH 20.5 % (9.6-15.2)
[2020-10-25 05:03] LABS: ALANINE AMINOTRANSFERASE 23 U/L (12-78); ALKALINE PHOSPHATASE 186 U/L (45-117); BILIRUBIN,TOTAL 0.4 mg/dL (0.2-1.0); CREATININE 0.56 mg/dL (0.55-1.02); TOTAL PROTEIN 5.3 g/dL (6.4-8.2)
[2020-10-25] MEDS: HEPARIN 5,000 UNITS/ML, 1ML SQ SCH ×3 (05:08→20:45)
[2020-10-25] MEDS: morphine SULFATE 10 MG/ML, 1ML IVPush PRN ×3 (05:08→17:20)
[2020-10-25] MEDS: LACTATED RINGERS 1,000 ML IV SCH (06:36)
[2020-10-25] MEDS: INSULIN LISPRO 100 UNITS/ML, PEN SQ-INSULIN SCH ×4 (07:00→20:48)
[2020-10-25 07:09] VITALS: BP 151/87
[2020-10-25] MEDS: SODIUM CHLORIDE FLUSH 10ML SYR IVF SCH ×2 (07:40→20:45)
[2020-10-25] MEDS: SODIUM CHLORIDE 0.45% 1,000 ML IV SCH ×2 (08:20→23:48)
[2020-10-25] MEDS: ONDANSETRON 2MG/ML, 2ML IVPush PRN (11:09)
[2020-10-25] MEDS: DIPHENHYDRAMINE 50 MG/ML, 1ML IVPush PRN ×2 (11:09→20:45)
[2020-10-25 12:42] VITALS: BP 159/86
[2020-10-25 18:53] VITALS: BP 145/82
[2020-10-26 00:22] VITALS: BP 136/83
[2020-10-26] MEDS: CEFAZOLIN PMX 1GM/50ML 50 ML IV SCH ×3 (01:20→16:27)
[2020-10-26 05:56] LABS: BASOPHILS % (AUTO) 1 % (0-1); EOSINOPHILS % (AUTO) 6 % (1-7); LYMPHOCYTES % (AUTO) 12 % (22-44); MEAN CORPUSCULAR HEMOGLOBIN 31.1 pg (27.0-34.8); MEAN CORPUSCULAR HGB CONC 34.8 g/dL (32.4-35.8); MEAN PLATELET VOLUME 7.7 fL (7.4-10.4); MONOCYTES % (AUTO) 5 % (2-9); NEUTROPHILS % (AUTO) 77 % (42-75); PLATELET COUNT 301 x10^3/uL (130-400); RED BLOOD COUNT 3.73 x10^6/uL (3.82-5.3); RED CELL DISTRIBUTION WIDTH 19.9 % (9.6-15.2)
[2020-10-26] MEDS: HEPARIN 5,000 UNITS/ML, 1ML SQ SCH ×3 (05:57→21:18)
[2020-10-26 06:03] LABS: ALBUMIN 1.8 g/dL (3.4-5.0); ANION GAP 8 mmol/L (5-15); CALCIUM 7.8 mg/dL (8.5-10.1); CHLORIDE 111 mmol/L (98-107)
[2020-10-26 06:10] LABS: ALANINE AMINOTRANSFERASE 21 U/L (12-78); ALKALINE PHOSPHATASE 182 U/L (45-117); BILIRUBIN,TOTAL 0.2 mg/dL (0.2-1.0); CREATININE 0.56 mg/dL (0.55-1.02); TOTAL PROTEIN 5.5 g/dL (6.4-8.2)
[2020-10-26] MEDS: INSULIN LISPRO 100 UNITS/ML, PEN SQ-INSULIN SCH ×4 (07:00→21:00)
[2020-10-26 07:02] VITALS: BP 148/96
[2020-10-26] MEDS: SODIUM CHLORIDE FLUSH 10ML SYR IVF SCH ×2 (09:00→21:18)
[2020-10-26] MEDS: morphine SULFATE 10 MG/ML, 1ML IVPush PRN ×2 (09:17→16:21)
[2020-10-26] MEDS: SODIUM CHLORIDE 0.45% 1,000 ML IV SCH (12:56)
[2020-10-26 14:05] VITALS: BP 151/86
[2020-10-26 19:00] VITALS: BP 146/88
[2020-10-27 00:51] VITALS: BP 162/93
[2020-10-27] MEDS: morphine SULFATE 10 MG/ML, 1ML IVPush PRN ×2 (00:52→08:49)
[2020-10-27] MEDS: CEFAZOLIN PMX 1GM/50ML 50 ML IV SCH ×2 (01:20→08:40)
[2020-10-27] MEDS: SODIUM CHLORIDE 0.45% 1,000 ML IV SCH ×2 (02:10→15:05)
[2020-10-27] MEDS: HEPARIN 5,000 UNITS/ML, 1ML SQ SCH ×3 (05:10→23:06)
[2020-10-27 06:10] LABS: MEAN CORPUSCULAR HEMOGLOBIN 30.8 pg (27.0-34.8); MEAN CORPUSCULAR HGB CONC 34.9 g/dL (32.4-35.8); MEAN PLATELET VOLUME 7.4 fL (7.4-10.4); PLATELET COUNT 261 x10^3/uL (130-400); RED BLOOD COUNT 3.64 x10^6/uL (3.82-5.3); RED CELL DISTRIBUTION WIDTH 19.5 % (9.6-15.2)
[2020-10-27 06:17] LABS: ALBUMIN 1.8 g/dL (3.4-5.0); ANION GAP 8 mmol/L (5-15); CALCIUM 7.6 mg/dL (8.5-10.1); CHLORIDE 109 mmol/L (98-107)
[2020-10-27 06:33] LABS: ALANINE AMINOTRANSFERASE 14 U/L (12-78); ALKALINE PHOSPHATASE 168 U/L (45-117); BILIRUBIN,TOTAL 0.2 mg/dL (0.2-1.0); CREATININE 0.44 mg/dL (0.55-1.02); TOTAL PROTEIN 5.2 g/dL (6.4-8.2)
[2020-10-27 06:37] LABS: <PLATELET ESTIMATE> ADEQUATE; <PLT MORPHOLOGY> NORMAL PLT MORPH; ANISOCYTOSIS 1+; BASOS#(MANUAL) 0.09 x10^3/uL (0-0.1); BASOS% (MANUAL) 1 % (0-1); EOS#(MANUAL) 0.45 x10^3/uL (0.0-0.4); EOS% (MANUAL) 5 % (1-7); LYMPH#(MANUAL) 1.35 x10^3/uL (1-3.4); LYMPHS% (MANUAL) 15 % (22-44); METAMYELOCYTES# (MANUAL) 0.09 x10^3/uL (0-0); METAMYELOCYTES% (MANUAL) 1 % (0-1); MONOS#(MANUAL) 0.45 x10^3/uL (0.3-2.7); MONOS% (MANUAL) 5 % (2-9); SEG#(MANUAL) 6.57 x10^3/uL (1.8-6.8); SEGS% (MANUAL) 73 % (42-75)
[2020-10-27] MEDS ORDERED: ACETAMINOPHEN 325 MG TABLET PO PRN (07:30)
[2020-10-27 08:23] VITALS: BP 176/99
[2020-10-27] MEDS: INSULIN LISPRO 100 UNITS/ML, PEN SQ-INSULIN SCH ×4 (08:40→21:12)
[2020-10-27] MEDS: AMLODIPINE 5 MG TABLET PO SCH (08:40)
[2020-10-27] MEDS: SODIUM CHLORIDE FLUSH 10ML SYR IVF SCH ×2 (08:51→20:13)
[2020-10-27 15:03] LABS: CLOSTRIDIUM DIFFICILE ANTIGEN NEGATIVE; CLOSTRIDIUM DIFFICILE TOXIN NEGATIVE (Negative)
[2020-10-27 15:25] VITALS: BP 150/89
[2020-10-27 20:03] VITALS: BP 147/75
[2020-10-27] MEDS: HYDROcodone/APAP 5/325 TABLET PO PRN (20:13)
[2020-10-27] MEDS: CEPHALEXIN 500 MG CAPSULE PO SCH (21:11)
[2020-10-28 00:17] VITALS: BP 142/78
[2020-10-28] MEDS: HYDROcodone/APAP 5/325 TABLET PO PRN ×3 (01:23→17:13)
[2020-10-28] MEDS: SODIUM CHLORIDE 0.45% 1,000 ML IV SCH ×2 (04:42→18:10)
[2020-10-28] MEDS: morphine SULFATE 10 MG/ML, 1ML IVPush PRN (05:09)
[2020-10-28 05:22] LABS: ALBUMIN 1.8 g/dL (3.4-5.0); ANION GAP 9 mmol/L (5-15); CALCIUM 7.9 mg/dL (8.5-10.1); CHLORIDE 109 mmol/L (98-107)
[2020-10-28 05:27] LABS: ALANINE AMINOTRANSFERASE 17 U/L (12-78); ALKALINE PHOSPHATASE 163 U/L (45-117); BILIRUBIN,TOTAL 0.2 mg/dL (0.2-1.0); CREATININE 0.39 mg/dL (0.55-1.02); TOTAL PROTEIN 5.2 g/dL (6.4-8.2)
[2020-10-28 06:39] VITALS: BP 167/91
[2020-10-28] MEDS: INSULIN LISPRO 100 UNITS/ML, PEN SQ-INSULIN SCH ×3 (07:34→17:12)
[2020-10-28 09:15] VITALS: BP 124/76
[2020-10-28] MEDS: HEPARIN 5,000 UNITS/ML, 1ML SQ SCH ×2 (09:15→17:11)
[2020-10-28] MEDS: AMLODIPINE 5 MG TABLET PO SCH (09:15)
[2020-10-28] MEDS: SODIUM CHLORIDE FLUSH 10ML SYR IVF SCH (09:16)
[2020-10-28] MEDS: CEPHALEXIN 500 MG CAPSULE PO SCH (09:23)
[2020-10-28] MEDS ORDERED: ONDA4TAB13 PO (12:50)
[2020-10-28] MEDS ORDERED: INSU100I13 SQ-INSULIN (12:50)
[2020-10-28] MEDS ORDERED: AMLO-150 PO (12:50)
[2020-10-28] MEDS ORDERED: ATOR40TA78 PO (12:50)
[2020-10-28 13:29] VITALS: BP 119/76
[2020-10-28] MEDS ORDERED: HYDR-2214 PO (16:53)
[2020-10-28] MEDS ORDERED: INSULIN GLARGINE 100 UNITS/ML, PEN SQ-INSULIN SCH (21:00)
== END 2020-10-28 19:30 | disposition home or self-care (01) | DRG 438 ==
LOC: ED 08:14 → EDIP 10:33 → 3N 11:45
PROVIDERS: ADMIT Internal Medicine; ATTEND Hospitalist
DX: K85.90 Acute pancreatitis without necrosis or infection, unspecified (principal); K68.19 Other retroperitoneal abscess; E87.2 Acidosis; E87.1 Hypo-osmolality and hyponatremia; E11.43 Type 2 diabetes mellitus with diabetic autonomic (poly)neuropathy; E11.65 Type 2 diabetes mellitus with hyperglycemia; I10 Essential (primary) hypertension; K31.84 Gastroparesis; Z83.3 Family history of diabetes mellitus; R74.8 Abnormal levels of other serum enzymes
CPT/HCPCS: 36415; 74177; 80053; 80061; 81001; 82962; 83690; 83735; 84100; 84145; 85025; 85651; 86140; 87040; 87324; 96361; 96374; 96375; G0378; J0690; J1170; J1644; J2405; Q0162; Q9967; J1200; J1815; J2270; J7030; J7120

== ENCOUNTER 2020-12-08 08:57 | Inpatient (IN) | payer MEDICAID, OTHER ==
[~2020-12-08] VITALS: Ht 154.9 cm; Wt 56.0 kg
[~2020-12-08 08:57] MED LIST changes: +AMLO-150 PO; +ATOR40TA78 PO; +HYDR-2214 PO; +IBUP200C8 PO; +ONDA4TAB13 PO
--- NOTE | 2020-12-08 10:19 | NUR ---
Penny weber in [facility] - 12/08/20 at 1028 by VINH PT WALKED BACK TO ROOM
--- NOTE | 2020-12-08 10:28 | NUR ---
PT WHEELED BACK TO ROOM AT THIS TIME.
[2020-12-08] MEDS ORDERED: SODIUM CHLORIDE 0.9% 1,000ML IVBOLUS ONE (11:00)
[2020-12-08] MEDS ORDERED: ONDANSETRON 2MG/ML, 2ML IVPush ONE (11:00)
[2020-12-08] MEDS ORDERED: SODIUM CHLORIDE 0.9% 1,000 ML IV ONE ×2 (11:00→13:30)
[2020-12-08] MEDS ORDERED: SODIUM CHLORIDE FLUSH 10ML SYR IVF ONE (11:00)
--- NOTE | 2020-12-08 11:00 | NUR ---
PT IN HOSPITAL GOWN. LAB IN NOW DRAWING BLOOD FROM PT. TECH ABOUT TO TAKE PT TO NILE
[2020-12-08 11:11] LABS: BASOPHILS % (AUTO) 1 % (0-1); EOSINOPHILS % (AUTO) 3 % (1-7); LYMPHOCYTES % (AUTO) 18 % (22-44); MEAN CORPUSCULAR HEMOGLOBIN 31.2 pg (27.0-34.8); MEAN CORPUSCULAR HGB CONC 35.3 g/dL (32.4-35.8); MEAN PLATELET VOLUME 7.6 fL (7.4-10.4); MONOCYTES % (AUTO) 5 % (2-9); NEUTROPHILS % (AUTO) 74 % (42-75); PLATELET COUNT 285 x10^3/uL (130-400); RED BLOOD COUNT 4.24 x10^6/uL (3.82-5.3); RED CELL DISTRIBUTION WIDTH 13.8 % (9.6-15.2)
[2020-12-08 11:19] LABS: ALANINE AMINOTRANSFERASE 28 U/L (12-78); ALBUMIN 2.3 g/dL (3.4-5.0); CALCIUM 8.5 mg/dL (8.5-10.1)
[2020-12-08 11:22] LABS: ALKALINE PHOSPHATASE 111 U/L (45-117); BILIRUBIN,TOTAL 0.3 mg/dL (0.2-1.0)
[2020-12-08 11:30] LABS: ANION GAP 4 mmol/L (5-15); CHLORIDE 101 mmol/L (98-107)
[2020-12-08] MEDS ORDERED: OMNIPAQUE 350 MG/ML, 100ML BOTTLE ONE (11:30)
[2020-12-08] MEDS ORDERED: ONDANSETRON 2MG/ML, 2ML ONE (11:34)
[2020-12-08] MEDS ORDERED: MORPHINE SULFATE 4 MG/ML, 1ML ONE ×3 (11:35→13:20)
--- NOTE | 2020-12-08 11:41 | NUR ---
PT GONE TO CT AT THIS TIME.
[2020-12-08] MEDS: MORPHINE SULFATE 4 MG/ML, 1ML IVPush PRN ×2 (12:07→13:27)
[2020-12-08 12:27] LABS: MICROSCOPIC INDICATED
--- NOTE | 2020-12-08 12:34 | NUR ---
PT SLEEPING IN BED. VSS.
[2020-12-08] MEDS ORDERED: INSULIN REGULAR 100 UNITS/ML, 3ML VIAL IVPush ONE (13:00)
[2020-12-08] MEDS ORDERED: CEFTRIAXONE 1,000 MG in DEXTROSE 5% 50 ML IVPB ONE (13:00)
[2020-12-08] MEDS ORDERED: INSULIN SINGLE DOSE, ER ONE (13:13)
[2020-12-08] MEDS ORDERED: SODIUM CHLORIDE FLUSH 10ML SYR IVF PRN (13:30)
[2020-12-08 13:44] LABS: ACETONE, SERUM Small (20mg/dL) (Negative)
--- NOTE | 2020-12-08 14:02 | NUR ---
ADDITIONAL PIV INITIATED, RM GIVEN. RN TO CALL REPORT
--- NOTE | 2020-12-08 14:11 | NUR ---
ATTEMPT TO CALL REPORT, RN TO CALL BACK PER UC
[2020-12-08 16:04] VITALS: BP 149/89
[2020-12-08] MEDS: INSULIN LISPRO 100 UNITS/ML, PEN SQ-INSULIN SCH ×2 (16:30→19:59)
[2020-12-08] MEDS ORDERED: LIDODERM 5% PATCH TD PRN (16:30)
[2020-12-08] MEDS: ENOXAPARIN 40 MG/0.4 ML SQ SCH (17:23)
[2020-12-08] MEDS: SODIUM CHLORIDE 0.9% 1,000 ML IV SCH (17:24)
[2020-12-08 17:39] LABS: C-REACTIVE PROTEIN, QUANT 0.09 mg/dL (0.02-0.49)
[2020-12-08 17:48] LABS: TROPONIN I < 0.015 ng/mL (0.000-0.045)
[2020-12-08] MEDS ORDERED: GADOTERATE 5 MMOL/10ML SYR ONE (18:13)
[2020-12-08 18:46] VITALS: BP 95/59
[2020-12-08] MEDS: ACETAMINOPHEN 325 MG TABLET PO PRN (18:59)
[2020-12-08] MEDS: ATORVASTATIN 40 MG TABLET PO SCH (19:59)
[2020-12-08] MEDS: ONDANSETRON 2MG/ML, 2ML IVPush PRN (19:59)
[2020-12-08 20:03] VITALS: BP 110/71
[2020-12-08] MEDS: HYDROcodone/APAP 5/325 TABLET PO PRN (21:53)
[2020-12-08] MEDS: INSULIN GLARGINE 100 UNITS/ML, PEN SQ-INSULIN SCH (21:54)
[2020-12-08 22:54] LABS: ANION GAP 5 mmol/L (5-15); CALCIUM 7.6 mg/dL (8.5-10.1); CHLORIDE 110 mmol/L (98-107); CREATININE 0.65 mg/dL (0.55-1.02)
[2020-12-08 22:59] LABS: TROPONIN I < 0.015 ng/mL (0.000-0.045)
[2020-12-09 01:34] VITALS: BP 102/66
[2020-12-09] MEDS: HYDROcodone/APAP 5/325 TABLET PO PRN ×4 (02:04→21:35)
[2020-12-09] MEDS: DIPHENHYDRAMINE/ZINC CRM 2%, 30GM TP PRN ×2 (02:14→10:30)
[2020-12-09] MEDS: ONDANSETRON 2MG/ML, 2ML IVPush PRN ×3 (02:14→20:04)
[2020-12-09 06:01] LABS: BASOPHILS % (AUTO) 1 % (0-1); EOSINOPHILS % (AUTO) 3 % (1-7); LYMPHOCYTES % (AUTO) 11 % (22-44); MEAN CORPUSCULAR HEMOGLOBIN 31.4 pg (27.0-34.8); MEAN CORPUSCULAR HGB CONC 35.3 g/dL (32.4-35.8); MEAN PLATELET VOLUME 7.7 fL (7.4-10.4); MONOCYTES % (AUTO) 4 % (2-9); NEUTROPHILS % (AUTO) 82 % (42-75); PLATELET COUNT 267 x10^3/uL (130-400); RED BLOOD COUNT 3.79 x10^6/uL (3.82-5.3); RED CELL DISTRIBUTION WIDTH 13.9 % (9.6-15.2)
[2020-12-09 06:15] LABS: CHLORIDE 110 mmol/L (98-107)
[2020-12-09 06:23] LABS: ALANINE AMINOTRANSFERASE 25 U/L (12-78); ALBUMIN 1.8 g/dL (3.4-5.0); ALKALINE PHOSPHATASE 90 U/L (45-117); ANION GAP 5 mmol/L (5-15); BILIRUBIN,TOTAL 0.2 mg/dL (0.2-1.0); CALCIUM 7.8 mg/dL (8.5-10.1); CREATININE 0.69 mg/dL (0.55-1.02); TOTAL PROTEIN 4.9 g/dL (6.4-8.2)
[2020-12-09] MEDS: INSULIN LISPRO 100 UNITS/ML, PEN SQ-INSULIN SCH ×4 (07:00→19:58)
[2020-12-09 08:08] VITALS: BP 122/78
[2020-12-09] MEDS: AMLODIPINE 5 MG TABLET PO SCH (08:12)
[2020-12-09] MEDS: SODIUM CHLORIDE 0.9% 1,000 ML IV SCH ×2 (08:12→21:23)
[2020-12-09] MEDS: ACETAMINOPHEN 325 MG TABLET PO PRN (10:29)
[2020-12-09 12:52] VITALS: BP 125/83
[2020-12-09] MEDS: CEFTRIAXONE 1,000 MG in DEXTROSE 5% 50 ML IVPB SCH (13:51)
[2020-12-09] MEDS: ENOXAPARIN 40 MG/0.4 ML SQ SCH (17:08)
[2020-12-09 19:53] VITALS: BP 145/83
[2020-12-09] MEDS: INSULIN GLARGINE 100 UNITS/ML, PEN SQ-INSULIN SCH (20:04)
[2020-12-09] MEDS: ATORVASTATIN 40 MG TABLET PO SCH (20:04)
[2020-12-09] MEDS: MELATONIN 5 MG TABLET PO PRN (21:23)
[2020-12-10] VITALS (8 sets, daily range): BP systolic 121–169; BP diastolic 74–87
[2020-12-10] MEDS: ONDANSETRON 2MG/ML, 2ML IVPush PRN ×2 (05:47→21:58)
[2020-12-10] MEDS: INSULIN LISPRO 100 UNITS/ML, PEN SQ-INSULIN SCH ×4 (07:46→21:57)
[2020-12-10] MEDS: HYDROcodone/APAP 5/325 TABLET PO PRN ×2 (09:58→21:23)
[2020-12-10] MEDS: AMLODIPINE 5 MG TABLET PO SCH (09:58)
[2020-12-10] MEDS: SODIUM CHLORIDE 0.9% 1,000 ML IV SCH (10:03)
[2020-12-10] MEDS: CEFTRIAXONE 1,000 MG in DEXTROSE 5% 50 ML IVPB SCH (13:39)
[2020-12-10] MEDS: DIPHENHYDRAMINE/ZINC CRM 2%, 30GM TP PRN (14:01)
[2020-12-10] MEDS: ENOXAPARIN 40 MG/0.4 ML SQ SCH (17:04)
[2020-12-10] MEDS: morphine SULFATE 10 MG/ML, 1ML IVPush PRN (17:05)
[2020-12-10] MEDS: ATORVASTATIN 40 MG TABLET PO SCH (21:22)
[2020-12-10] MEDS: INSULIN GLARGINE 100 UNITS/ML, PEN SQ-INSULIN SCH (21:57)
[2020-12-10] MEDS: MELATONIN 5 MG TABLET PO PRN (21:58)
[2020-12-11] MEDS: SODIUM CHLORIDE 0.9% 1,000 ML IV SCH ×2 (00:12→13:30)
[2020-12-11 00:19] VITALS: BP 111/72
[2020-12-11 04:32] VITALS: BP 149/89
[2020-12-11] MEDS: HYDROcodone/APAP 5/325 TABLET PO PRN (04:36)
[2020-12-11] MEDS: DIPHENHYDRAMINE/ZINC CRM 2%, 30GM TP PRN ×2 (04:36→09:18)
[2020-12-11] MEDS: ONDANSETRON 2MG/ML, 2ML IVPush PRN (04:51)
[2020-12-11 07:21] VITALS: BP 158/86
[2020-12-11] MEDS ORDERED: FOSFOMYCIN 3 GM PACKET PO ONE (08:30)
[2020-12-11] MEDS: AMLODIPINE 5 MG TABLET PO SCH (09:18)
[2020-12-11] MEDS: INSULIN LISPRO 100 UNITS/ML, PEN SQ-INSULIN SCH ×2 (09:20→13:28)
[2020-12-11] MEDS: morphine SULFATE 10 MG/ML, 1ML IVPush PRN (10:19)
--- NOTE | 2020-12-11 13:03 | NUR ---
Activity sheet posted recommending pt be assisted to chair for meals and ambulate in halls 2x/day with nursing staff. Addendum: 12/11/20 at 1312 by John Jacobo PT Amended: Links added.
[2020-12-11 13:22] VITALS: BP 130/82
[2020-12-11] MEDS ORDERED: HYDR-2214 PO (13:26)
== END 2020-12-11 16:25 | disposition home or self-care (01) | DRG 637 ==
LOC: ED 11:53 → MERGE 11:53 → EDIP 13:21 → 4NE 15:02 → 4WST 19:40
PROVIDERS: ADMIT Internal Medicine; ATTEND Family Medicine
PROC: 0T9B70Z Drainage of Bladder with Drainage Device, Via Natural or Artificial Opening (ICD-10-PCS; principal; 2020-12-08)
DX: E11.65 Type 2 diabetes mellitus with hyperglycemia (principal); E43 Unspecified severe protein-calorie malnutrition; B96.1 Klebsiella pneumoniae [K. pneumoniae] as the cause of diseases classified elsewhere; Z66 Do not resuscitate; N30.90 Cystitis, unspecified without hematuria; B96.20 Unspecified Escherichia coli [E. coli] as the cause of diseases classified elsewhere; E78.5 Hyperlipidemia, unspecified; E87.5 Hyperkalemia; I10 Essential (primary) hypertension; K59.00 Constipation, unspecified; Z68.23 Body mass index [BMI] 23.0-23.9, adult; Z79.899 Other long term (current) drug therapy
CPT/HCPCS: 36415; 71045; 72158; 74177; 80048; 80053; 81001; 82010; 82800; 82962; 83605; 83690; 83735; 84100; 84145; 84443; 84484; 85025; 85651; 86140; 87040; 87077; 87086; 87186; 93005; 93306; 96361; 96374; 96375; G0378; J0696; J1650; J2405; Q9967; A9575; J1815; J2270; J7030

== ENCOUNTER 2020-12-22 15:06 | Emergency (ER) | payer OTHER ==
[~2020-12-22] VITALS: Ht 154.9 cm; Wt 54.5 kg
--- NOTE | 2020-12-22 15:15 | NUR ---
NO PATIENT RESPONSE WHEN NAME CALLED IN LOBBY.
--- NOTE | 2020-12-22 15:39 | NUR ---
pt presents to ed with c/o right sided abd pain x3 days. pt states generalized weakness, had a fall today and hit L side of face, no trauma noted, no midline cervical tenderness. pt a&o, resps even and unlabroed, vss.
--- NOTE | 2020-12-22 16:12 | NUR ---
berny Maldonado at bedside for initial eval/assessment
--- NOTE | 2020-12-22 16:14 | NUR ---
Penny weber in [facility] - 12/22/[address] Xiao at [facility] for jos[facility]al
[2020-12-22] MEDS ORDERED: SODIUM CHLORIDE 0.9% 1,000ML IVBOLUS ONE (16:30)
[2020-12-22] MEDS ORDERED: SODIUM CHLORIDE FLUSH 10ML SYR IVF ONE (16:30)
--- NOTE | 2020-12-22 16:56 | NUR ---
PIV placed, labs drawn, fludis infusing. pt a&o, resps even and unlabored, vss, nadn.
[2020-12-22 17:09] LABS: BASOPHILS % (AUTO) 1 % (0-1); EOSINOPHILS % (AUTO) 4 % (1-7); LYMPHOCYTES % (AUTO) 17 % (22-44); MEAN CORPUSCULAR HEMOGLOBIN 31.5 pg (27.0-34.8); MEAN CORPUSCULAR HGB CONC 35.5 g/dL (32.4-35.8); MEAN PLATELET VOLUME 7.2 fL (7.4-10.4); MONOCYTES % (AUTO) 6 % (2-9); NEUTROPHILS % (AUTO) 72 % (42-75); PLATELET COUNT 364 x10^3/uL (130-400); RED CELL DISTRIBUTION WIDTH 13.4 % (9.6-15.2)
--- NOTE | 2020-12-22 17:12 | NUR ---
pt aware of needed UA, pt unable to void at this time. UA supplies at bedside.
[2020-12-22 17:17] LABS: ALANINE AMINOTRANSFERASE 56 U/L (12-78); ALBUMIN 2.3 g/dL (3.4-5.0); ANION GAP 4 mmol/L (5-15); CALCIUM 8.6 mg/dL (8.5-10.1); CHLORIDE 104 mmol/L (98-107); CREATININE 0.79 mg/dL (0.55-1.02)
[2020-12-22 17:19] LABS: ALKALINE PHOSPHATASE 158 U/L (45-117); BILIRUBIN,TOTAL 0.3 mg/dL (0.2-1.0); TOTAL PROTEIN 6.6 g/dL (6.4-8.2)
--- NOTE | 2020-12-22 17:42 | NUR ---
pt to ct
[2020-12-22] MEDS ORDERED: OMNIPAQUE 350 MG/ML, 100ML BOTTLE ONE (17:57)
--- NOTE | 2020-12-22 18:06 | NUR ---
pt back from ct, pt able to void using bedside commode, UA collected and walked to lab.
[2020-12-22 18:42] LABS: MICROSCOPIC INDICATED
[2020-12-22 18:43] VITALS: BP 184/92
[2020-12-22] MEDS ORDERED: HYDROmorphone 1 MG/ML, 1ML INJ IV ONE (19:00)
[2020-12-22] MEDS ORDERED: ONDANSETRON 2MG/ML, 2ML IVPush ONE (19:00)
--- NOTE | 2020-12-22 19:06 | NUR ---
berny Maldonado at bedside to discuss results and poc
[2020-12-22] MEDS ORDERED: SODIUM CHLORIDE FLUSH 10ML SYR IVF PRN (19:30)
[2020-12-22] MEDS ORDERED: ONDANSETRON 2MG/ML, 2ML IVPush PRN (19:30)
[2020-12-22] MEDS ORDERED: HYDROmorphone 1 MG/ML, 1ML INJ IVPush PRN (19:30)
[2020-12-22] MEDS ORDERED: SODIUM CHLORIDE 0.9% 1,000 ML IV ONE (19:30)
--- NOTE | 2020-12-22 19:43 | NUR ---
pt aware of plan to admit
--- NOTE | 2020-12-22 20:12 | NUR ---
pt refusing admit, and [facility] aware. pt educated on discharge, verbalized undertsanding, taken to discharge via wheelchair accompanied by and son.
== END 2020-12-22 20:15 | disposition home or self-care (01) ==
LOC: ED 20:00
DX: R10.84 Generalized abdominal pain (principal); E11.65 Type 2 diabetes mellitus with hyperglycemia
CPT/HCPCS: 36415; 74177; 80053; 81001; 83605; 83690; 85025; 93005; 96361; 96374; 99285; J2405; J7030; Q9967